=== PATIENT | male | born 1955 | race Caucasian/White ===

== ENCOUNTER → 2022-12-22 20:27 | Outpatient (CLI) | payer MEDICARE, OTHER, SELFPAY ==
--- NOTE | 2022-12-23 08:14 | PC.NURSE ---
PATIENT CAME FOR HST - WHEN RETURNED NO DATA TO UPLOAD - NO CHARGE TO PATIENT AND WILL TRY TO RESCHEDULE....
== END ==
PROVIDERS: PCP Family Medicine; Visit Provider Nurse Practitioner Family
DX: R40.0 Somnolence (principal)

== ENCOUNTER → 2023-04-10 13:54 | Outpatient (CLI) | payer MEDICARE, OTHER, SELFPAY ==
--- NOTE | 2023-04-10 13:59 | XR_ITS ---
FINAL REPORT CLINICAL HISTORY: knee pain FINDINGS: Four views of the left knee were obtained. There is no evidence of fracture or dislocation. The bony alignment is normal. There are mild degenerative changes. There is no evidence of joint effusion. No localized soft tissue abnormality is seen. There is no evidence of foreign body. IMPRESSION: No acute bony abnormality identified. Reviewed, Interpreted and Dictated by Chepe Velazquez III, MD Transcribed by Luz Hester Authenticated and [facility]
== END ==
PROVIDERS: PCP Family Medicine; Visit Provider Nurse Practitioner Family
DX: M25.562 Pain in left knee (principal)
CPT/HCPCS: 73560

== ENCOUNTER → 2023-04-28 15:29 | Outpatient (CLI) | payer MEDICARE, OTHER, SELFPAY ==
--- NOTE | 2023-04-28 15:32 | MR_ITS ---
PROCEDURE INFORMATION: Exam: MR Left Lower Extremity Joint Without Contrast, Knee Exam date and time: 04/28/2023 3:42 PM Age: 67 years old Clinical indication: Pain; Knee; Left; Additional info: Acute pain of left knee TECHNIQUE: Imaging protocol: Magnetic resonance imaging of the left lower extremity joint without contrast. Exam focused on the knee. COMPARISON: CR XR KNEE LT 2V 04/10/2023 2:01 PM FINDINGS: Bones/joints: Small patellofemoral joint effusion. A small Rae cyst is visualized. There is irregularity/thinning of the patellar cartilage at the medial facet with a tiny subchondral cyst. Degenerative spurring is identified within the medial compartment the knee. There is cortical irregularity and spurring at the weight-bearing surface of the medial femoral condyle, which is likely degenerative or contributed by prior trauma. Cartilage loss and fissures at the weight-bearing surface of the medial femoral condyle. Cystic change is identified involving the distal femur anteriorly. A few tiny osseous cysts are identified involving the proximal fibula. Minimal degenerative spurring of the patellofemoral joint. Medial meniscus: Complex tearing of the posterior horn and body of the medial meniscus. Abnormal signal intensity with meniscal tear involving the posterior root of the medial meniscus. Lateral meniscus: The anterior horn of the lateral meniscus is small in size, without a well-defined tear. Anterior cruciate ligament: Increased signal intensity is identified within the proximal ACL, consistent with partial tear. Posterior cruciate ligament: No visualized tear. Medial capsule and supporting structures: Edema surrounds the medial collateral ligament, consistent with the grade 1 MCL injury/sprain. A tiny focus of increased T2 signal intensity is seen proximally within or posterior to this ligament, and partial tear cannot be excluded. Lateral capsule and supporting structures: Unremarkable. No tear. Extensor mechanism of knee: Mild heterogeneous signal intensity/tendinosis of the patellar tendon. Mild tendinosis of the distal quadriceps tendon. Soft tissues: A small amount of fluid is identified adjacent to the popliteus muscle and tendon. Tendinosis is visualized of the popliteus tendon. Minimal soft tissue edema anteriorly. IMPRESSION: 1. Medial meniscal tears. 2. Partial ACL tear. 3. Grade 1 MCL injury/sprain. Partial tear cannot be excluded. 4. Small patellofemoral joint effusion. A small Rae cyst is visualized. 5. Degenerative changes. There is cortical irregularity and spurring at the weight-bearing surface of the medial femoral condyle. Cartilage loss and fissures at the weight-bearing surface of the medial femoral condyle. 6. Additional findings described above.
== END ==
PROVIDERS: PCP Family Medicine; Visit Provider Nurse Practitioner Family
DX: M25.562 Pain in left knee (principal)
CPT/HCPCS: 73721

== ENCOUNTER 2023-05-05 14:35 | Outpatient (RCR) | payer MEDICARE, OTHER, SELFPAY | END 2023-05-05 16:00 | disposition home or self-care (01) | LOC: PT 14:35 | PROVIDERS: Visit Provider Orthopaedic Surgery | DX: M25.562 Pain in left knee (principal) ==

== ENCOUNTER 2023-05-15 07:56 | Outpatient (RCR) | payer MEDICARE, OTHER, SELFPAY ==
--- NOTE | 2023-05-15 11:46 | HMH.PTOPEV ---
PT Outpatient Evaluation Rehab PT Outpatient Evaluation Start: 05/15/23 11:10 Freq: Status: Active Protocol: Document 05/15/23 11:10 IZA (Rec: 05/15/23 11:46 PHOYANNI [id number]) E-signed By Krishan Beyer, PT Outpatient Therapy Subjective History Subjective History This is the initial PT eval for Xavier Mooney, 67 yowm who presents with c/o L knee pain x ~ 5 wks. He reports, I just stepped backwards and felt it pop, it's been hurting ever since. MRI was performed ~ 2 wks ago which shows ACL partial tear, MCL sprain vs partial tear (grade 1), medial meniscus tears, and degenerative OA. He reports he has been frequently icing his knee, which helps. However , he continues to have significant pain and instability with standing activity. Chief Complaint Pain,Stiff Symptom Type Ache Symptoms Relieved By Ice Symptoms Aggravated By Standing,Physical Activity, Walking Prior Functional Limitations None Current Functional Limitations Housework,Standing,Walking, Stairs Symptom Description Constant but Variable Level of pain today (0-10) 7 Pain scale - at its best (0-10) 5 Pain scale - at its worst (0-10) 10 Hip/Knee Eval Gait Observation General Gait Pattern Observation Antalgic Gait Palpation Tenderness left Knee Palpation Finding Tenderness Knee Palpation Overall Comment MCL 2/4 MMT Hip Flexion Strength Grade 3+ Fair+ Hip Abduction Strength Grade 4 Good Hip Adduction Strength Grade 4 Good Hip Extension Strength Grade 4 Good Knee Extension Strength Grade 3+ Fair+ Knee Flexion Strength Grade 4 Good ROM Knee Extension Active Range of Motion ( -5 degrees) Knee Extension Passive Range of Motion ( 0 degrees) Knee Flexion Active Range of Motion ( 5-70 degrees) Knee Flexion Passive Range of Motion ( 0-85 degrees) Knee ROM Limitations Pain Special Tests Gutierrez 90/90 Test (PCL) Negative Left,Negative Right Knee Anterior Hever Test Negative Right,Positive Left Knee Posterior Sag ([place]) Test Negative Left,Negative Right Knee Valgus Stress Test Negative Right,Positiv
== END 2023-05-15 07:59 | disposition home or self-care (01) ==
LOC: PT 07:56
PROVIDERS: PCP Family Medicine; Visit Provider Orthopaedic Surgery
DX: M25.562 Pain in left knee (principal)
CPT/HCPCS: 97014; 97016; 97110; 97163; G0283

== ENCOUNTER → 2023-05-29 11:37 | Outpatient (CLI) | payer MEDICARE, OTHER, SELFPAY ==
[2023-05-29 11:56] LABS: MANUAL DIFFERENTIAL MANUAL DIFFERENTIAL (MANUAL DIFF)
--- NOTE | 2023-05-29 12:24 | XR_ITS ---
FINAL REPORT CLINICAL HISTORY: HTN FINDINGS: 2 views of the chest were obtained . The heart is normal in size. The mediastinum is within normal limits. The lungs are clear. There is no pneumothorax. Osseous structures are unremarkable. IMPRESSION: No acute cardiopulmonary process. Reviewed, Interpreted and Dictated by Rik Layton MD Transcribed by Lzu Hester Authenticated and [facility]
[2023-05-29 12:30] LABS: Basophils # 0.1 K/mm3 (0-0.2); Basophils % 0.5 % (0.1-2.0); Eosinophils # 0.6 K/mm3 (0.0-0.4); Eosinophils % 6.4 % (0.1-12.0); Hemoglobin 14.8 g/dL (14.1-18.0); Lymphocytes # 2.9 K/mm3 (0.7-4.5); Lymphocytes % 29.8 % (10-50); Mean Corpuscular HGB Conc 31.5 g/dL (31.8-35.4); Mean Corpuscular Volume 92.2 fl (80-94); Mean Platelet Volume 8.3 fl (7.4-10.4); Monocytes # 0.5 K/mm3 (0.1-1.0); Monocytes % 5.4 % (1.7-9.3); Neutrophils # 5.7 K/mm3 (1.8-7.8); Neutrophils % 57.9 % (37.0-80.0); Platelet Count 226 K/mm3 (142-424); Red Cell Distribution Width 13.4 % (11.5-17.5); White Blood Count 9.8 K/mm3 (4.8-10.8)
[2023-05-29 12:51] LABS: Hemoglobin A1C 5.9 % (4.0-6.0)
--- NOTE | 2023-05-29 12:58 | ECG_ITS ---
APPROVED REPORT Exam: Resting ECG HR:69 bpm ECG Measurements Heart Rate 69 AXES PA 158 P 50 QRSd 96 QRS 30 QT 368 T 42 QTc 387 Conclusion SINUS RHYTHM NORMAL ECG UNCONFIRMED REPORT Electronically signed by : Mahin Mcleod MD 05/30/2023 17:22:03
[2023-05-29 12:59] LABS: Alanine Aminotransferase 23 U/L (12-78); Albumin Level 4.1 g/dl (3.5-5.0); Albumin/Globulin Ratio 1.3 (1.1-1.8); Alkaline Phosphatase 45 U/L (38-126); Anion Gap 16.2 mEq/L (5-15); Aspartate Amino Transferase 23 U/L (17-59); Bilirubin,Total 0.6 mg/dl (0.2-1.3); Blood Urea Nitrogen 17 mg/dl (9-20); Calcium 9.6 mg/dl (8.4-10.2); Carbon Dioxide 25 mmol/L (22.0-30.0); Chloride 103 mmol/L (98-107); Estimated Glomerular Filt Rate 67 ml/min (>60); GFR (African American) 81 ML/MIN (>60); Globulin 3.2 g/dL (1.3-3.2); Glucose 131 mg/dl (74-100); Potassium 4.2 mmoL/L (3.5-5.1); Sodium 140 mmol/L (136-145); Total Protein,Serum 7.3 g/dl (6.3-8.2)
[2023-05-29 13:20] LABS: Eosinophils % 2 % (0-3); Lymphocytes % 33 % (10-50); Monocytes % 3 % (2-9); Neutrophils % 62 % (42-76); Total Cells Counted 100
[2023-05-29 13:21] LABS: Platelet Estimate Normal; RBC Morphology Normal
== END ==
PROVIDERS: PCP Nurse Practitioner Family; Visit Provider Orthopaedic Surgery
DX: E11.9 Type 2 diabetes mellitus without complications (principal); S83.232A Complex tear of medial meniscus, current injury, left knee, initial encounter; Z01.818 Encounter for other preprocedural examination
CPT/HCPCS: 36415; 71046; 80053; 83036; 85007; 85014; 85018; 85048; 85049; 93005

== ENCOUNTER 2023-06-01 07:41 | Day surgery (SDC) | payer MEDICARE, OTHER, SELFPAY ==
[2023-05-30 11:19] VITALS: BMI 32.5
[2023-06-01] VITALS (9 sets, daily range): BP systolic 126–155; BP diastolic 74–98; PULSE 71–97; RESP 11–17; TEMP 36.1–36.5; O2SAT 94–99
--- NOTE | 2023-06-01 08:00 | EXP.ANES.CKL ---
[facility] Disclaimer: The information contained in this section may have been updated after the patient was seen, as this information can be updated by other users. Medical History History of amputation of toe Hypertension Surgical History History of ankle surgery History of cardiac cath History of colonoscopy with polypectomy History of knee surgery Family History Other No significant family history Social History Smoking Status: Former smoker second hand exposure: No alcohol intake: never substance use type: denies use current occupational status: employed Travel in the last 8 weeks: None household members: spouse housing: house [facility] Anesthesia Checklist Patient Identification Patient Identification: Arm Band and Verbal (Name & ) Structural Data Admitted From: Home Planned Operative Procedure/s: Knee Scope Left Consent for Planned Operative Procedure(s) Verified: Yes Verified Documents: Surgical Consent NPO Status Verified Time NPO: 00:00 Additional verifications Patient : No Anesthesia Reactions: No Hx Blood Transfusions: No Airway Assessment Mallampati Score:: Class I C-Spine Mobility Assessed: Yes TMJ Mobility Assessed: Yes Dentition: Good Dentition Neurological Assessment Level of Consciousness: Awake and Alert Hx Seizures: No Anesthesia Plan Anesthesia Risk discussed: Yes ASA Class: II Anesthesia Type: General
--- NOTE | 2023-06-01 10:18 | EXP.OP.NOTE ---
Date of procedure: 06/01/23 Pre-op Diagnosis:: Left knee medial meniscus tear Post-op Diagnosis:: Left knee medial meniscus tear Procedure performed:: Left knee arthroscopy with partial medial meniscectomy Surgeon:: Joao Valera MD BUSH REGENERATOR:: Devendra Sarabia Anesthesia: GETA and local Estimated blood loss (mL): 5 Clinical Note:: Xavier is a pleasant 67-year-old male dealing with left knee pain after twisting his knee a couple of months ago. [place] a pop with immediate pain. Left knee MRI 04/20 revealed complex tear posterior horn and body the medial meniscus. Mild chondromalacia. History of a left knee scope in 2017. No relief with cortisone injections in the past. History and exam consistent with acute symptomatic medial meniscus tear as seen on MRI. We discussed all the risks, benefits and alternatives to surgery to include left knee arthroscopy with partial medial meniscectomy and he agrees to proceed. Operative findings:: Left knee complex tear posterior horn medial meniscus with horizontal cleavage component and displaced flap into the notch. Mild chondromalacia medial and patellofemoral compartments. Operative note:: The patient was seen in the preoperative holding area. The left knee was marked to confirm the correct operative site. He was seen by anesthesia. He received Ancef 2 g IV prophylactic antibiotics within 1 hour incision time. He was brought back to the operating room. General anesthesia induced without difficulty. Left lower extremity prepped and draped in usual sterile fashion. Timeout performed to confirm left knee arthroscopy on patient Xavier Mooney. An anterolateral viewing portal was made with an 11 blade scalpel. Arthroscope was introduced into the knee joint. Anteromedial portal was then localized with a spinal needle. This incision made with 11 blade as well and dilated with the trocar. Diagnostic arthroscopy commenced. He was seen to have some grade II-III chondromalacia central aspect the trochlea and patella. This was treated with a chondroplasty with a 3.5 mm shaver resecting the unstable flaps back to a smooth stable border. Evaluation of the medial compartment revealed displaced flap tear of the posterior horn of the medial meniscus into the notch. Also horizontal cleavage tear of the posterior horn and body the medial meniscus. This was treated with a partial medial meniscectomy using a 3.5 shaver to resect the unstable flap and the inferior leaflet of the horizontal cleavage tear. We resected approximately the inner third to half of the posterior horn of the medial meniscus with a smooth transition to intact body the medial meniscus. There was some diffuse grade II-III chondromalacia of the medial compartment with no full-thickness cartilage loss. Cruciate ligaments were seen to be intact. He was placed in the [id number] position. Evaluation of the lateral compartment revealed lateral meniscus was intact and minimal chondromalacia. At this time arthroscopy intstruments removed from the joint. Arthroscopy fluid suctioned and drained from the joint. Portals were closed with 4 Monocryl subcuticular sutures. We injected 20 cc of half percent Naropin from the superolateral approach. Sterile dressing was applied with Steri-Strips, 4 x 4's, ABD, soft roll and Harrison bandage. Anesthesia reversed without difficulty. Transferred to recovery in stable condition. All sponge and needle counts correct x2. Postoperative plan: He will be discharged home for recovery with crutches and ice wrap. Okay to weight-bear as tolerated with crutch assist as needed. Ice and elevation over the next few days. Prescribed oxycodone take as needed for pain and aspirin for DVT prophylaxis. We will see him back in the office in 2 weeks for his first postoperative check. Tourniquet time (min): 0 Condition: stable Disposition: PACU Specimens:: None Complications:: None
--- NOTE | 2023-06-01 10:24 | EXP.ANES.I ---
[facility] Anesthesia Record Part I Anesthesia Record I Intake, IV Amount: 900 Hydration: Adequate Estimated blood loss (mL): 5 Urine output (mL): 0 Blood Pressure: 126/74 SaO2: 94 Pulse Rate: 85 Airway Patency: Patent Respiratory Rate: 11 Temperature: 97.4 F Patient is:: Drowsy and Oral/Nasal airway Stable to PACU at:: 10:26
--- NOTE | 2023-06-02 08:36 | EXP.ANES.II ---
[facility] Anesthesia Record Part II Anesthesia Record Part II Discharge Time: 10:56 Destination: Surgical Day Care (OP Surgery) PACU nurse assessment reviewed?: Yes Patient Condition:: Good Anesthesia Complications:: None Swallowing reflex intact?: Yes Airway Patency: Patent Cyanosis?: No Blood Pressure: 153/90 SaO2: 99 Respiratory Rate: 16 Pulse Rate: 86 Temperature: 97.1 F Mental Status: Alert & Oriented Pain level:: 0 Nausea and/or vomitting:: None Intake, IV Amount: 0 Hydration: Adequate
[2023-06-02 08:37] VITALS: BP 153/90; PULSE 86; RESP 16; TEMP 36.2; O2SAT 99
== END 2023-06-01 11:30 | disposition home or self-care (01) ==
PROVIDERS: PCP Family Medicine; Visit Provider Orthopaedic Surgery
PROC: 0SBD4ZZ Excision of Left Knee Joint, Percutaneous Endoscopic Approach (ICD-10-PCS; CPT 29870; principal; 2023-06-01 09:15)
DX: S83.242A Other tear of medial meniscus, current injury, left knee, initial encounter (principal); X58.XXXA Exposure to other specified factors, initial encounter; M17.12 Unilateral primary osteoarthritis, left knee
CPT/HCPCS: 29881; 96374; J0131

== ENCOUNTER 2024-01-19 09:26 | Outpatient (CLI) | payer MEDICARE, OTHER, SELFPAY ==
--- NOTE | 2024-01-19 09:32 | XR_ITS ---
FINAL REPORT CLINICAL HISTORY: Left Knee Pain fall November 2023 COMPARISON: None FINDINGS: LEFT KNEE 3 views of the left knee were obtained. There is no acute fracture or dislocation. There is mild narrowing of the medial compartment joint space. There is no joint effusion. Soft tissues are unremarkable. IMPRESSION: Mild degenerative change without acute bony abnormality. Reviewed, Interpreted and Dictated by Rik Layton MD Transcribed by Aruna Antonio Authenticated and [facility]
== END 2024-01-19 23:59 ==
LOC: RAD 09:28
PROVIDERS: PCP Family Medicine; Visit Provider Orthopaedic Surgery
DX: M25.562 Pain in left knee (principal)
CPT/HCPCS: 73562

== ENCOUNTER 2024-02-17 07:28 | Emergency (ER) | payer MEDICARE, OTHER, SELFPAY ==
[2024-02-17] VITALS (7 sets, daily range): BP systolic 132–174; BP diastolic 80–106; PULSE 54–86; RESP 16; TEMP 36.7; O2SAT 95–100; BMI 32.3
--- NOTE | 2024-02-17 07:47 | ECG_ITS ---
APPROVED REPORT Exam: Resting ECG HR:72 bpm ECG Measurements Heart Rate 72 AXES IA 173 P 53 QRSd 91 QRS 4 QT 366 T 40 QTc 390 Conclusion SINUS RHYTHM Electronically signed by : NERIS OBREGON, 02/17/2024 15:37:05
[2024-02-17] MEDS: BELLADONNA ALKALOIDS 60 ML ML PO (07:59)
[2024-02-17] MEDS: MORPHINE 4MG/ML SYRINGE 4 MG IV (08:00)
[2024-02-17] MEDS: ONDANSETRON 4MG/2ML VIAL 4 MG IV (08:00)
[2024-02-17] MEDS: FAMOTIDINE 20MG/2ML VIAL 20 MG IV (08:00)
[2024-02-17] MEDS: LACTATED RINGERS 1000ML 1,000 ML 999 ML IV (08:00)
[2024-02-17] MEDS: KETOROLAC 30MG/ML VIAL 15 MG IV (08:00)
[2024-02-17 08:05] LABS: Microscopic, Urine URINE MICROSCOPIC (MICROSCOPIC)
--- NOTE | 2024-02-17 08:06 | ED_ITS ---
Discharge Plan Disposition Patient Disposition: Home, Self-Care Chief Complaint: Abdominal Pain Prescriptions Prescriptions: No Action epinephrine 0.3 mg/0.3 mL auto-injector 0.3 ml IM ONCE Patient Comments: INJECT THE contents of 1 auto-injector INTRAMUSCULARLY ONCE NEEDED FOR anaphylaxis trazodone 50 mg tablet 50 mg PO HS PRN Patient Comments: TAKE ONE TABLET BY MOUTH ONCE DAILY AT BEDTIME NEEDED dorzolamide-timolol 22.3-6.8 mg/mL drops 1 drp Eye-Both BID Patient Comments: INSTILL ONE DROP into affected eye(s) TWICE DAILY irbesartan 75 mg tablet 75 mg PO DAILY Qty: 30 2RF epinephrine [EpiPen 2-Santos] 0.3 mg/0.3 mL auto-injector 0.3 mg IM Q5-15M PRN (Reason: anaphylaxis) Qty: 2 2RF Rx Instructions: do not exceed 3 doses per episode prazosin 1 mg capsule 2 mg PO HS 30 Days Qty: 60 0RF Referrals Follow up/Referrals: Laura Richardson APRN [Primary Care Provider] - See instructions Activity Restrictions/Add. Instructions Additional Instructions/Restrictions: Call your family doctor to establish care for this visit to the emergency department and schedule follow-up within 48 hours to ensure improvement. If you have any worsening of your condition or any other concerning signs or symptoms, return to the emergency department or your primary care doctor for further evaluation. Call Dr. Baptiste's office in order to have evaluation for cholecystectomy and hernia repair. Clinical Impressions Clinical Impression: Symptomatic cholelithiasis, Hernia, umbilical Instructions Patient Instructions: DI for Acute Abdominal Pain Discharge ED Provider: Adrián Quiroz General Adult HPI General Chief complaint: Abdominal Pain Stated complaint: severe abd pain Time Seen by Provider: 02/17/24 07:32 Mode of Arrival: Ambulatory Source of Information: Patient Limitations: No Limitations Description of Symptoms (Recalled from ER Triage Doc. by RN): Patient reports severe right to mid abdomen pain that started approx 9 pm last night. States he did have a couple episodes of emesis through the night. Denies any diarrhea. Reports having this problem once before and when he was checked out everything came back fine. History of Present Illness HPI narrative: 68-year-old male history of hypertension presenting with severe abdominal pain. Patient states that it started last night, 02/15 around 9 PM. Was not doing anything in particular, sitting on the couch. No vomiting, diarrhea, constipation, blood in the stool, but he is significantly tender and nauseated. Tenderness is constant, periumbilical/epigastric, does not radiate. Tried to take Tylenol, this did not help, has not noticed anything that makes it better or worse in particular. States that he noticed this morning, 02/16, he had bruising on his right flank, atraumatic, bruising is nontender. Not taking anticoagulation. No history of abdominal surgeries Please note that above description of symptoms, in this electronic medical record under categorization of recalled from ER triage doctor by RN are reflective of an initial nursing assessment, however, is not reflective of my full history and physical exam that was personally taken and clarified. Consequentially, this preceding description of symptoms, which may include the patient's categorized chief complaint in the EMR, do not reflect my personal clinical impression, and the ultimate description of history of present illness and patient stated complaints should be deferred to this section of the note. Unless stated otherwise or congruent with this section of the note, additional signs, symptoms, or incongruence should be interpreted as inaccurate with my clinical impression. Related Data Home Medications Medication Instructions Recorded Confirmed epinephrine 0.3 mg/0.3 mL 0.3 ml IM ONCE anyphalaxis 05/05/23 02/16/24 injection, auto-injector dorzolamide 22.3 mg-timolol 6.8 1 drp Eye-Both BID 01/30/24 02/16/24 mg/mL eye drops trazodone 50 mg tablet 50 mg PO HS PRN 01/30/24 02/16/24 Previous Rx's Medication Instructions Recorded epinephrine 0.3 mg/0.3 mL 0.3 mg (0.3 mL) IM Q5-15M PRN 01/30/24 injection, auto-injector (EpiPen anaphylaxis #2 ea 2-Santos) irbesartan 75 mg tablet 75 mg PO DAILY #30 tabs 01/30/24 prazosin 1 mg capsule 2 mg (2 x 1 mg) PO HS 30 days #60 02/01/24 caps Allergies Allergy/AdvReac Type Severity Reaction Status Date / Time insect Allergy Severe Anaphylaxis Uncoded 02/16/24 13:44 [facility] Disclaimer: The information contained in this section may have been updated after the patient was seen, as this information can be updated by other users. Medical History PTSD (post-traumatic stress disorder) Cataract Glaucoma Hypertension Surgical History History of colonoscopy with polypectomy History of amputation of toe History of ankle surgery History of knee surgery History of cardiac cath Family History Father Cancer Other No significant family history Social History Smoking Status: Unknown if ever smoked second hand exposure: No alcohol intake: never substance use type: denies use current occupational status: employed Travel in the last 8 weeks: None household members: spouse housing: house ROS Obtained: Yes All systems reviewed & no additional complaints except as documented Physical Exam General General appearance: alert and in no apparent distress Head Head exam: atraumatic and normocephalic Eye Eye exam: Present normal appearance, PERRL and EOMI ENT ENT exam: Present mucous membranes moist Neck Neck exam: Present normal inspection, full ROM and trachea midline Respiratory Respiratory exam: Absent respiratory distress, wheezes, stridor, accessory muscle use or prolonged expiratory phase Cardiovascular Cardiovascular exam: Present normal rhythm Abdominal Exam Abdominal exam: Present soft, tenderness, hernia (umbilical, reducible) and other (right lateral abdomen/flank bruising concerning for Bray sign); Absent distention, guarding, rebound or rigidity Abdominal tenderness: Present diffuse and moderate Extremities Exam Extremities exam: Absent edema Neurological Exam Neurological exam: Present alert, oriented X3, CN II-XII intact and normal gait; Absent motor sensory deficit Skin Skin exam: Present warm and dry; Absent diaphoresis or erythema Medical Decision Making Medical Records Medical records reviewed: Yes I reviewed the patient's medical records. Ronen Inquiry Pt receiving controlled substance: No Ronen was queried for this patient: No Vital Signs: 02/17/24 07:29 02/17/24 08:30 02/17/24 08:30 Temperature 98.0 F Temperature Source Oral Pulse Rate 60 63 Pulse Rate [Radial] 86 Respiratory Rate 16 16 Blood Pressure 143/92 H Blood Pressure [Right Arm] 174/106 H Blood Pressure Mean Blood Pressure Mean [Right Arm] 128 Blood Pressure Source Manual Cuff/ Auscultation Blood Pressure Source [Right Arm] Automatic Cuff Blood Pressure Position Sitting Blood Pressure Position [Right Arm] Sitting 02 Sat by Pulse Oximetry 100 96 98 Oxygen Delivery Method Room Air Room Air 02/17/24 08:30 02/17/24 09:00 02/17/24 09:15 Temperature Temperature Source Pulse Rate 56 L Pulse Rate [Radial] Respiratory Rate Blood Pressure 148/94 H 150/80 H Blood Pressure [Right Arm] Blood Pressure Mean 113 103 Blood Pressure Mean [Right Arm] Blood Pressure Source Blood Pressure Source [Right Arm] Blood Pressure Position Blood Pressure Position [Right Arm] 02 Sat by Pulse Oximetry 95 Oxygen Delivery Method 02/17/24 09:30 Temperature Temperature Source Pulse Rate 54 L Pulse Rate [Radial] Respiratory Rate Blood Pressure Blood Pressure [Right Arm] Blood Pressure Mean Blood Pressure Mean [Right Arm] Blood Pressure Source Blood Pressure Source [Right Arm] Blood Pressure Position Blood Pressure Position [Right Arm] 02 Sat by Pulse Oximetry 97 Oxygen Delivery Method Lab Data Lab Results 02/17/24 07:33: Urine Color Dark yellow, Urine Appearance Clear, Urine pH 5.5, Ur Specific [place] >= 1.030, Urine Protein Negative, Urine Glucose (UA) Negative, Urine Ketones Trace, Urine Blood Negative, Urine Nitrate Negative, U rine Bilirubin 1+ A, Urine Urobilinogen 0.2, Ur Leukocyte Esterase Negative, Urine RBC None, Urine WBC Occasional, Ur Squamous Epith Cells 3-5, Calcium Oxalate Crystal Trace, Urine Bacteria Trace, Urine Mucus 1+ 02/17/24 07:38: WBC 9.3, RBC 5.19, Hgb 15.3, Hct 49.2, MCV 94.7 H, MCH 29.5, M CHC 31.2 L, RDW 13.5, Plt Count 262, MPV 8.1, Neut % (Auto) 46.2, Lymph % (Auto) 43.4, [place] % (Auto) 7.0, Eos % (Auto) 2.3, Baso % (Auto) 1.0, Neut # (Auto) 4.3, Lymph # (Auto) 4.0, [place] # (Auto) 0.7, Eos # (Auto) 0.2, Baso # (Auto) 0.1, Sodium 144, Potassium 4.2, Chloride 105, Carbon Dioxide 30, Anion Gap 13.2, BUN 14, Creatinine 1.10, Estimated Creat Clear 104, Estimated GFR 67, Est GFR ( Amer) 81, Glucose 117 H, Lactate 0.9, Calcium 10.1, Total Bilirubin 0.5, AST 37, ALT 34, Alkaline Phosphatase 62, Troponin I < 0.01, Total Protein 7.9, Albumin 4.3, Globulin 3.6 H, Albumin/Globulin Ratio 1.2, Lipase 53 02/17/24 07:38 02/17/24 07:38 Orders (Tests/Meds): ED MEDICATIONS Generic Name Dose Route Start Last Admin Trade Name Freq PRN Reason Stop Dose Admin Sodium Chloride 8 ml 02/17/24 07:33 Sodium Chloride 0.9% 10ml Vial IV 03/18/24 07:32 NEEDED PRN dilute pepcid Discontinued Medications Generic Name Dose Route Start Last Admin Trade Name Freq PRN Reason Stop Dose Admin Belladonna Alkaloids 60 ml 02/17/24 07:33 02/17/24 07:59 Belladonna Alkaloids 60 Ml Ml PO 02/17/24 07:34 60 ml ONCE ONE Administration Famotidine 20 mg 02/17/24 07:33 02/17/24 08:00 Famotidine 20mg/2ml Vial IV 02/17/24 07:34 20 mg ONCE ONE Administration Lactated Ringer's 1,000 mls @ 999 mls/hr 02/17/24 07:33 02/17/24 08:00 Lactated Ringer's 1000 Ml Bag IV 02/17/24 08:33 999 mls/hr .Q1H1M ONE Administration Iopamidol 100 ml 02/17/24 08:51 02/17/24 08:53 Iopamidol-370 (76%);100ml Bottle IV 02/17/24 08:52 100 ml ONCE ONE Administration Ketorolac Tromethamine 15 mg 02/17/24 07:33 02/17/24 08:00 Ketorolac 30mg/Ml Vial IV 02/17/24 07:34 15 mg ONCE ONE Administration Morphine Sulfate 4 mg 02/17/24 07:44 02/17/24 08:00 Morphine 4mg/Ml Syringe IV 02/17/24 07:45 4 mg ONCE ONE Administration Ondansetron HCl 4 mg 02/17/24 07:33 02/17/24 08:00 Ondansetron 4mg/2ml Vial IV 02/17/24 07:34 4 mg ONCE ONE Administration Sodium Chloride 10 ml 02/17/24 08:51 02/17/24 08:52 Sodium Chloride 0.9% 10ml Syr (Rad Only) IV 02/17/24 08:52 10 ml ONCE ONE Administration Sodium Chloride 50 ml 02/17/24 08:51 02/17/24 08:52 0.9 % Sodium Chloride 50 Ml Vial IV 02/17/24 08:52 50 ml ONCE ONE Administration ORDERS Category Date Time Status CT angio abdomen pelvis Stat Cat Scan 02/17/24 08:15 Completed POCUS Point of Care (ER Only) Stat Exams 02/17/24 07:44 Ordered CBC w/Auto Diff [Complete Blood Count Auto Diff] Stat Lab 02/17/24 07:38 Completed CMP [Comprehensive Metabolic Panel] Stat Lab 02/17/24 07:38 Completed Lactic Acid Stat Lab 02/17/24 07:38 Completed Lipase Stat Lab 02/17/24 07:38 Completed Trop I [Troponin I] Stat Lab 02/17/24 07:38 Completed Troponin I Q3H Lab 02/17/24 12:15 Ordered Troponin I Q3H Lab 02/17/24 15:15 Ordered UA [Urinalysis and Microscopic] Stat Lab 02/17/24 07:33 Completed HEART Score History (anamnesis): Slightly suspicious ECG: Normal Age: >65 years Risk factors: 1-2 risk factors Troponin: </= normal limit HEART Score: 3 Medical Decision Narrative: 68-year-old male history of hypertension presenting with severe abdominal pain. Patient states that it started last night, 02/15 around 9 PM. Was not doing anything in particular, sitting on the couch. No vomiting, diarrhea, constipation, blood in the stool, but he is significantly tender and nauseated. Tenderness is constant, periumbilical/epigastric, does not radiate. Tried to take Tylenol, this did not help, has not noticed anything that makes it better or worse in particular. States that he noticed this morning, 02/16, he had bruising on his right flank, atraumatic, bruising is nontender. Not taking anticoagulation. No history of abdominal surgeries. History was obtained via conversation with patient and . On arrival, patient hemodynamically stable, alert, oriented x4, appropriate, GCS 15, moving all extremities spontaneously, pupils equal and reactive to light. Full physical exam performed and significant for intermittent retching. Patient has abdominal tenderness diffusely, but primarily epigastric/periumbilical. He does have reducible umbilical hernia that is soft, no overlying skin changes. He does have right flank/right lower abdominal tenderness concerning for Bray sign and pancreatitis. Differential includes PUD, gastritis, enteritis, gastroenteritis, pancreatitis, SBO, colitis, diverticulitis, nephrolithiasis, UTI, cholecystitis, choledocholithiasis, appendicitis, torsion, hepatitis, aortic pathology, mesenteric ischemia among others. Patient was given morphine, Toradol, Zofran, IV fluids for symptomatic management and correction of underlying abnormalities. Workup independently interpreted and significant for nonactionable CBC or chemistry. Bilirubin normal, lipase and lactate both normal. LFT normal as well. Troponin negative. CT angio abdomen and pelvis without obvious intra-abdominal abnormality. Pancreas appears normal, no obvious ischemia. Gallbladder distended, but no secondary signs of cholecystitis on exam. See radiology read for full review of final results. Independent interpretation of EKG shows sinus rhythm with occasional PVCs. No ST or T wave changes concerning for acute ischemia. FL, QRS, QT intervals within normal limits. [place] normal. Heart score 3 On reevaluation, patient stating he has no pain, well-appearing, able to tolerate p.o. intake. Given patient presentation, workup, history, this most likely represents symptomatic cholelithiasis. Because patient at baseline without signs or symptoms of clinical decompensation, deemed appropriate for discharge. Results were relayed to patient who voiced understanding and were agreeable to outpatient management and follow up. I discussed my clinical impression with patient and answered all questions. At this time, the evidence for any other entities in the differential is insufficient to warrant any further testing or ED observation. This was explained as well. Advisory was given that persistent or worsening symptoms require further evaluation. I confirmed the understanding of this discussion. Paralegal Legal Secretary disclaimer Much of this encounter note is an electronic utility locate technician spoken language to printed text. Electronic utility locate technician of the spoken language may permit errors. Although I have reviewed the note, some errors may still exist. Procedures Limited Ultrasound Indication:: Limited RUQ ultrasound Indication: Abdominal pain Identified structures: -Gallbladder -Gallbladder wall -Common bile duct -Liver Findings: Sonographic Delgado sign: Absent Gallstones: Present, numerous Sludge: Absent Pericholecystic fluid: Absent Maximal GB wall thickness (mm) (normal is </= 3mm): Normal Common bile duct width (mm) (normal is </= 6mm): Normal Gallbladder width (cm) (normal is < 4cm): Normal Gallbladder length (cm) (normal is < 10cm): Normal Impression: Cholelithiasis without secondary signs of cholecystitis Images were saved to permanent archive The study was technically adequate CPT 29227-08 This study was performed by me, and I personally interpreted all images/videos. Based on my clinical judgement, these images were adequate and did not necessitate further imaging. Critical Care Critical Care Time Critical Care Time: No
--- NOTE | 2024-02-17 08:15 | CT_ITS ---
PROCEDURE INFORMATION: Exam: CTA Abdomen and Pelvis With Contrast Exam date and time: 02/17/2024 8:44 AM Age: 68 years old Clinical indication: Abdominal pain; Generalized; Additional info: Severe abd pain, out of proportion to exam TECHNIQUE: Imaging protocol: Computed tomographic angiography of the abdomen and pelvis with contrast. Exam focused on the arteries. 3D rendering (Not supervised by radiologist): MIP and/or 3D reconstructed images were created by the technologist. Radiation optimization: All CT scans at this facility use at least one of these dose optimization techniques: automated exposure control; mA and/or kV adjustment per patient size (includes targeted exams where dose is matched to clinical indication); or iterative reconstruction. Contrast material: ISOVUE; Contrast volume: 100 ml; Contrast route: INTRAVENOUS (IV); COMPARISON: ABDPELW CT abdomen pelvis w con 03/24/2019 3:32 AM FINDINGS: Aorta: No aortic aneurysm. No aortic dissection. Celiac trunk and mesenteric arteries: No occlusion or significant stenosis. Renal arteries: No occlusion or significant stenosis. Right iliac arteries: No occlusion or significant stenosis. Left iliac arteries: No occlusion or significant stenosis. Liver: 11 mm cystic structure in the anterior aspect of the liver . No follow-up imaging recommended . Subcentimeter low attenuation area in the liver is too small for characterization. Gallbladder and bile ducts: Unremarkable. No calcified stones. No ductal dilation. Pancreas: Unremarkable. No mass. No ductal dilation. Spleen: Unremarkable. No splenomegaly. Adrenal glands: Unremarkable. No mass. Kidneys and ureters: 16 mm simple cyst medial aspect of the left kidney. 2.3 cm simple cyst lower pole right kidney. No follow-up imaging recommended . Stomach and bowel: Unremarkable. No obstruction. No mucosal thickening. Appendix: Normal appendix Intraperitoneal space: Unremarkable. No free air. No significant fluid collection. Lymph nodes: Unremarkable. No enlarged lymph nodes. Urinary bladder: Unremarkable. No mass. Reproductive: Unremarkable as visualized. Bones/joints: No acute fracture. Soft tissues: Unremarkable. IMPRESSION: No acute process
[2024-02-17 08:19] LABS: Alanine Aminotransferase 34 U/L (12-78); Albumin Level 4.3 g/dl (3.5-5.0); Albumin/Globulin Ratio 1.2 (1.1-1.8); Alkaline Phosphatase 62 U/L (38-126); Anion Gap 13.2 mEq/L (5-15); Aspartate Amino Transferase 37 U/L (17-59); Bilirubin,Total 0.5 mg/dl (0.2-1.3); Blood Urea Nitrogen 14 mg/dl (9-20); Calcium 10.1 mg/dl (8.4-10.2); Carbon Dioxide 30 mmol/L (22.0-30.0); Chloride 105 mmol/L (98-107); Creatinine Clearance Estimated 104 mL/min (50-200); Estimated Glomerular Filt Rate 67 ml/min (>60); GFR (African American) 81 ML/MIN (>60); Globulin 3.6 g/dL (1.3-3.2); Glucose 117 mg/dl (74-100); Lipase 53 U/L (23-300); Potassium 4.2 mmoL/L (3.5-5.1); Sodium 144 mmol/L (136-145); Total Protein,Serum 7.9 g/dl (6.3-8.2)
[2024-02-17 08:20] LABS: Appearance,Urine CLEAR (Clear); Blood, Urine Negative (Negative); Glucose,Urine (UA) Negative (Negative); Ketones,Urine TRACE (Negative); Leukocyte Esterase,Urine Negative (Negative); Nitrate,Urine Negative (Negative); PH,Urine 5.5 (5.0-8.5); Protein,Urine Negative (Negative); Specific Gravity, Urine >= 1.030 (1.005-1.030); Urobilinogen,Urine 0.2 EU/dl (0.2)
[2024-02-17 08:21] LABS: Lactic Acid 0.9 mmol/L (0.7-2.1)
[2024-02-17 08:27] LABS: Basophils # 0.1 K/mm3 (0-0.2); Eosinophils # 0.2 K/mm3 (0.0-0.4); Eosinophils % 2.3 % (0.1-12.0); Hematocrit 49.2 % (42.0-52.0); Hemoglobin 15.3 g/dL (14.1-18.0); Lymphocytes % 43.4 % (10-50); Mean Corpuscular HGB Conc 31.2 g/dL (31.8-35.4); Mean Corpuscular Hemoglobin 29.5 pg (27.0-31.2); Mean Corpuscular Volume 94.7 fl (80-94); Mean Platelet Volume 8.1 fl (7.4-10.4); Monocytes # 0.7 K/mm3 (0.1-1.0); Neutrophils # 4.3 K/mm3 (1.8-7.8); Neutrophils % 46.2 % (37.0-80.0); Platelet Count 262 K/mm3 (142-424); Red Blood Count 5.19 M/mm3 (4.60-6.20); Red Cell Distribution Width 13.5 % (11.5-17.5); White Blood Count 9.3 K/mm3 (4.8-10.8)
[2024-02-17 08:28] LABS: Bilirubin,Urine 1+ (Negative); Color,Urine Dark Yellow (Yellow)
[2024-02-17] MEDS: SODIUM CHLORIDE 0.9% 10ML SYR (RAD ONLY) 10 ML IV (08:52)
[2024-02-17] MEDS: 0.9 % SODIUM CHLORIDE 50 ML VIAL IV (08:52)
[2024-02-17] MEDS: IOPAMIDOL-370 (76%);100ML BOTTLE 100 ML IV (08:53)
[2024-02-17 09:06] LABS: Bacteria,Urine Trace /lpf; Calcium Oxalate Crystals,Urine Trace /lpf; Mucus,Urine 1+ /lpf; WBC,Urine Occasional #/hpf (0-3)
--- NOTE | 2024-02-17 09:12 | PC.NURSE ---
Pt resting. No needs voiced at this time. Call light within reach.
[2024-02-17 09:35] LABS: Troponin I < 0.01 ng/ml (0.00-0.034)
== END 2024-02-17 10:36 | disposition home or self-care (01) ==
PROVIDERS: Emergency Provider Emergency Medicine; PCP Nurse Practitioner Family
DX: R10.13 Epigastric pain (principal); R10.33 Periumbilical pain; K42.9 Umbilical hernia without obstruction or gangrene; K80.20 Calculus of gallbladder without cholecystitis without obstruction; I10 Essential (primary) hypertension
CPT/HCPCS: 74174; 80053; 81001; 83605; 83690; 84484; 85025; 93005; 96361; 96374; 96375; 99285; J2405; Q9967

== ENCOUNTER 2024-02-28 11:05 | Outpatient (CLI) | payer MEDICARE, OTHER, SELFPAY ==
[2024-02-28 12:34] LABS: Alanine Aminotransferase 23 U/L (12-78); Albumin Level 3.9 g/dl (3.5-5.0); Alkaline Phosphatase 47 U/L (38-126); Amylase 41 U/L (30-110); Aspartate Amino Transferase 25 U/L (17-59); Bilirubin,Direct 0.1 mg/dl (0.0-0.4); Bilirubin,Indirect 0.4 mg/dL (0.0-0.9); Bilirubin,Total 0.5 mg/dl (0.2-1.3); Bilirubin,Unconjugated 0.4 mg/dL (0.0-1.1); Lipase 66 U/L (23-300); Total Protein,Serum 6.9 g/dl (6.3-8.2)
== END 2024-02-28 23:59 | disposition home or self-care (01) ==
LOC: LAB 11:06
PROVIDERS: PCP Nurse Practitioner Family; Visit Provider Surgery
DX: R10.11 Right upper quadrant pain (principal)
CPT/HCPCS: 36415; 80076; 82150; 83690

== ENCOUNTER 2024-03-01 14:17 | Outpatient (CLI) | payer MEDICARE, OTHER, SELFPAY ==
--- NOTE | 2024-03-01 14:18 | MR_ITS ---
FINAL REPORT TECHNIQUE: Multiplanar MR without contrast CLINICAL HISTORY: Lt Knee Pain FINDINGS: Articular cartilage: Moderate thinning within the medial compartment. Marrow signal: Marrow edema in the medial tibial plateau. Joint fluid: Small effusion. Menisci: Macerated, extensive tear at the body and posterior horn of the medial meniscus. Lateral meniscus is intact. Ligaments: Collateral and cruciate ligaments intact IMPRESSION: Significant degenerative changes in the medial compartment associated with a macerated tear involving much of the medial meniscus. Reviewed, Interpreted and Dictated by Velasquez Causey MD Transcribed by Krista Jalloh Authenticated and [facility]
== END 2024-03-01 23:59 | disposition home or self-care (01) ==
LOC: RAD 14:18
PROVIDERS: PCP Nurse Practitioner Family; Visit Provider Orthopaedic Surgery
DX: M25.562 Pain in left knee (principal); S83.232A Complex tear of medial meniscus, current injury, left knee, initial encounter
CPT/HCPCS: 73721

== ENCOUNTER 2024-03-04 08:19 | Outpatient (CLI) | payer MEDICARE, OTHER, SELFPAY ==
--- NOTE | 2024-03-04 08:19 | US_ITS ---
FINAL REPORT CLINICAL HISTORY: RUQ pain COMPARISON: None FINDINGS: Sonographic images of the right upper quadrant were obtained. The pancreas is obscured.The liver has an unremarkable appearance. Gallstones are noted in the gallbladder. There is no evidence of biliary ductal dilatation.The common duct measures 4mm. Limited images of the right kidney are unremarkable. IMPRESSION: Gallstones. Reviewed, Interpreted and Dictated by Chepe Velazquez III, MD Transcribed by Aruna Antonio Authenticated and [facility]
== END 2024-03-04 23:59 | disposition home or self-care (01) ==
LOC: RAD 08:19
PROVIDERS: PCP Nurse Practitioner Family; Visit Provider Surgery
DX: R10.11 Right upper quadrant pain (principal)
CPT/HCPCS: 76705

== ENCOUNTER 2024-03-28 08:26 | Day surgery (SDC) | payer MEDICARE, OTHER, SELFPAY ==
[2024-03-26 14:08] VITALS: BMI 32.3
[2024-03-28] VITALS (10 sets, daily range): BP systolic 122–180; BP diastolic 80–98; PULSE 62–90; RESP 12–18; TEMP 36.1–37.1; O2SAT 95–99; BMI 32.3
[2024-03-28] MEDS: LACTATED RINGERS 1000ML 1,000 ML 25 ML IV (08:43)
--- NOTE | 2024-03-28 09:27 | EXP.ANES.CKL ---
[facility] Disclaimer: The information contained in this section may have been updated after the patient was seen, as this information can be updated by other users. Medical History PTSD (post-traumatic stress disorder) Cataract Glaucoma Hypertension Surgical History History of colonoscopy with polypectomy History of amputation of toe History of ankle surgery History of knee surgery History of cardiac cath Family History Father Cancer Other No significant family history Social History (Updated 03/26/24 @ 14:07 by Aruna Aburto RN) Smoking Status: Never smoker second hand exposure: No alcohol intake: never substance use type: denies use current occupational status: employed Travel in the last 8 weeks: None household members: spouse housing: house [facility] Anesthesia Checklist Patient Identification Patient Identification: Arm Band, Family and Verbal (Name & ) Structural Data Admitted From: Home Planned Operative Procedure/s: Lap Tamanna; possible UHR Consent for Planned Operative Procedure(s) Verified: Yes Verified Documents: Surgical Consent and History and Physical NPO Status Verified Time NPO: 17:30 Chart Verification Results Verified: CBC, BMP, ECG and Chest Xray Additional verifications Patient : No Anesthesia Reactions: No Hx Blood Transfusions: No Blood Transfusion Reaction: No Cardiovascular Assessment Heart Sounds: S1 & S2 Pulse Rhythm: Irregular Peripheral Edema: No Airway Assessment Mallampati Score:: Class II C-Spine Mobility Assessed: Yes (FROM) TMJ Mobility Assessed: Yes Dentition: Good Dentition (Nothing loose per pt.) Neurological Assessment Level of Consciousness: Awake, Alert, Appropriate and Follows Commands Hx Seizures: No Numbness or tingling in extremities: No Anesthesia Plan Anesthesia Risk discussed: Yes Anesthesia Plan: Verified ASA Class: II Anesthesia Type: General
[2024-03-28] MEDS: CEFAZOLIN SODIUM 2 GM in 0.9 % SODIUM CHLORIDE 100 ML IV (10:00)
[2024-03-28] MEDS: LIDOCAINE 1% 20ML MDV 20 ML (10:22)
--- NOTE | 2024-03-28 11:27 | P.OP_ITS ---
Date of procedure: 03/28/24 Pre-op Diagnosis:: Chronic calculus cholecystitis Post-op Diagnosis:: Acute on chronic calculus cholecystitis Procedure performed:: Laparoscopic cholecystectomy Surgeon:: Onofre Baptiste MD Anesthesia: GRISELDA Estimated blood loss (mL): 25 Operative findings:: Known umbilical hernia with incarcerated preperitoneal fat (closed as part of trocar site closure) Distended gallbladder with serosal weeping Severe infundibular thickening Dome down approach utilized secondary to above findings Operative note:: After informed consent was obtained, the patient was taken to the operating room and placed in the supine position. General anesthesia was induced and the abdomen was prepped and draped in a sterile fashion. After infiltration with local anesthetic a a stab incision was made in the left upper quadrant. A V eress needle was placed in position. The abdomen was insufflated. Incarcerated preperitoneal fat at a known umbilical hernia was reduced. An infraumbilical incision was made. A 12mm optical trocar was placed in position through the small hernia. Under direct visualization, a 5 mm trocar was placed in the subxiphoid position and 2 additional 5 mm trocars were placed in the right upper quadrant. The gallbladder was elevated up and over the liver margin. The tissue around the cystic duct was carefully dissected. Gallbladder distention and serosal weeping noted. Severe infundibular thickening also noted. Secondary to these findings a dome down approach was chosen. A window was made bluntly behind the infundibulum. Harmonic chelsey were then utilized to dissect the gallbladder away from the liver margin. Endoloops (x 2) were placed at the infundibulum. The gallbladder was transected distal to the Endoloops and then placed in a retrieval bag. The gallbladder was removed through the infraumbilical trocar site. The right upper quadrant was thoroughly irrigated. No active bleeding or bile leak was noted. Fascia at the infraumbilical trocar site/hernia was reapproximated utilizing 0 Ethibond. The remaining trocars were removed. All wounds were irrigated and skin was closed with 4-0 Monocryl in a subcuticular fashion. Steri-Strips were applied. The patient's anesthetic agents were reversed and extubation was completed prior to transfer to recovery in stable condition. Condition: stable Disposition: PACU Specimens:: Gallbladder and contents Complications:: No immediate
--- NOTE | 2024-03-28 11:30 | P.PNANES_ITS ---
[facility] Anesthesia Record Part I Anesthesia Record I Intake, IV Amount: 1,000 Hydration: Adequate Estimated blood loss (mL): 15 Urine output (mL): 0 Blood Pressure: 122/85 SaO2: 95 Pulse Rate: 90 Airway Patency: Patent Respiratory Rate: 12 Temperature: 98.8 F Patient is:: Awake Stable to PACU at:: 11:30
--- NOTE | 2024-03-29 14:33 | P.PNANES_ITS ---
[facility] Anesthesia Record Part II Anesthesia Record Part II Discharge Time: 12:00 Destination: Surgical Day Care (OP Surgery) PACU nurse assessment reviewed?: Yes Patient Condition:: Good Anesthesia Complications:: None Swallowing reflex intact?: Yes Airway Patency: Patent Cyanosis?: No Blood Pressure: 169/89 SaO2: 97 Respiratory Rate: 17 Pulse Rate: 77 Temperature: 97 F Mental Status: Alert & Oriented Pain level:: 2 Nausea and/or vomitting:: None Intake, IV Amount: 0 Hydration: Adequate
[2024-03-29 14:34] VITALS: BP 169/89; PULSE 77; RESP 17; TEMP 36.1; O2SAT 97
== END 2024-03-28 12:35 | disposition home or self-care (01) ==
PROVIDERS: PCP Nurse Practitioner Family; Visit Provider Surgery
PROC: 0FT44ZZ Resection of Gallbladder, Percutaneous Endoscopic Approach (ICD-10-PCS; CPT 47562; principal; 2024-03-28 10:15)
DX: K80.12 Calculus of gallbladder with acute and chronic cholecystitis without obstruction (principal); R10.84 Generalized abdominal pain
CPT/HCPCS: 47562; 96374; J3490; J0131; J0690; J1100; J1885; J2250; J2405; J3010; J7120

== ENCOUNTER 2024-10-22 11:38 | Outpatient (CLI) | payer MEDICARE, OTHER, SELFPAY ==
--- NOTE | 2024-10-22 11:43 | XR_ITS ---
FINAL REPORT CLINICAL HISTORY: left knee pain COMPARISON: 01/19/2024 FINDINGS: Left knee Three views were obtained. There is no fracture or dislocation. Current images were obtained with weightbearing. There is moderate narrowing of the medial compartment. Narrowing is more evident than previous. No soft tissue abnormality is identified. IMPRESSION: Degenerative changes as above. Reviewed, Interpreted and Dictated by Rik Layton MD Transcribed by Aniya Marin Authenticated and . [facility]
--- NOTE | 2024-10-22 11:43 | XR_ITS ---
FINAL REPORT CLINICAL HISTORY: right knee pain FINDINGS: Right knee Three views were obtained. There is no fracture or dislocation. Current images were obtained with weightbearing. There is advanced medial compartment joint space narrowing and subchondral sclerosis. There is an osteochondral lesion along the articular surface of the medial femoral condyle measuring 8 mm. There are small osteophytes along the medial joint margin. No soft tissue abnormality is identified. IMPRESSION: Degenerative changes as above. Reviewed, Interpreted and Dictated by Rik Layton MD Transcribed by Aniya Marin Authenticated and [facility]
== END 2024-10-22 23:59 | disposition home or self-care (01) ==
LOC: RAD 11:41
PROVIDERS: PCP Nurse Practitioner Family; Visit Provider Physician Assistant
DX: M17.0 Bilateral primary osteoarthritis of knee (principal)
CPT/HCPCS: 73562

== ENCOUNTER 2024-11-26 09:49 | Outpatient (CLI) | payer MEDICARE, OTHER, SELFPAY ==
--- NOTE | 2024-11-26 09:53 | XR_ITS ---
FINAL REPORT CLINICAL HISTORY: wheezing, cough x 1 mo COMPARISON: 05/29/2023 FINDINGS: No acute pulmonary density is evident. There is no evidence of effusion or other pleural disease. The mediastinum has a normal appearance. The cardiac silhouette is unremarkable. IMPRESSION: Unremarkable chest exam. Reviewed, Interpreted and Dictated by Velasquez Causey MD Transcribed by Nora Connolly Authenticated and . [facility]
== END 2024-11-26 23:59 | disposition home or self-care (01) ==
LOC: RAD 09:51
PROVIDERS: PCP Nurse Practitioner Family; Visit Provider Nurse Practitioner Family
DX: R05.9 Cough, unspecified (principal); J45.901 Unspecified asthma with (acute) exacerbation
CPT/HCPCS: 71046

== ENCOUNTER 2025-01-28 08:55 | Outpatient (RCR) | payer MEDICARE, OTHER, SELFPAY | END 2025-01-28 23:59 | disposition home or self-care (01) | LOC: PT 08:55 | PROVIDERS: PCP Nurse Practitioner Family; Visit Provider Student in an Organized Health Care Education/Training Program | DX: Z96.652 Presence of left artificial knee joint (principal); M17.12 Unilateral primary osteoarthritis, left knee | CPT/HCPCS: 97110; 97163 ==

== ENCOUNTER 2025-02-28 08:00 | Outpatient (RCR) | payer MEDICARE, OTHER, SELFPAY | END 2025-02-28 23:59 | disposition home or self-care (01) | LOC: PT 08:00 | PROVIDERS: PCP Nurse Practitioner Family; Visit Provider Student in an Organized Health Care Education/Training Program | DX: M17.9 Osteoarthritis of knee, unspecified (principal) | CPT/HCPCS: 97110; 97140; 97530 ==

== ENCOUNTER 2025-03-20 08:00 | Outpatient (RCR) | payer MEDICARE, OTHER, SELFPAY | END 2025-03-20 23:59 | disposition home or self-care (01) | LOC: PT 08:00 | PROVIDERS: PCP Nurse Practitioner Family; Visit Provider Student in an Organized Health Care Education/Training Program | DX: M17.9 Osteoarthritis of knee, unspecified (principal) | CPT/HCPCS: 97110; 97530 ==

== ENCOUNTER 2025-03-29 16:06 | Emergency (ER) | payer MEDICARE, OTHER, SELFPAY ==
--- OUTSIDE RECORDS SUMMARY | 2003-11-06 10:00 | XMS_ITS | Continuity of Care Document ---
Author Name [facility] Organization [facility] Care Team Providers Care Automotive Service Assistant Name Role Phone [facility] Unavailable Unavailable Problems Combined list of problems from Department of [facility] and [facility] Affairs facilities. It does not include entries that were removed or entered in error. Problem Status Onset Date Problem Type Date of Resolution Comments Source Elevated Prostate Specific Antigen (PSA) (ICD-9-CM 790.93) Active Condition [facility] Gastroesophageal reflux disease Active Condition [facility] Osteoarthritis * (ICD-9-CM 715.90) Active Condition [facility] Tobacco dependence syndrome Active Condition [facility] Immunizations Combined list of available immunizations from the Department of [facility] and [facility] Affairs facilities. 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 Social History Type Response Date Comment Sourc e Tobacco smoking status DEIS HF V9 CURRENT SMOKER 11/06/2003 pt smokes 10/03/ [facility]
[2025-03-29] VITALS (9 sets, daily range): BP systolic 80–127; BP diastolic 56–83; PULSE 78–110; RESP 16–20; TEMP 36.6–36.7; O2SAT 94–99; BMI 31.8
--- OUTSIDE RECORDS SUMMARY | 2025-03-29 16:37 | XMS_ITS | Continuity of Care Document ---
Author Organization [facility] Address [address] [place] [address] [place] [address] Care Team Providers Care Occupational Therapist Home Based Name Role Phone OLEGARIO MCDONNELL Primary Care Provider [phone] Assessment No assessment recorded. Plan of Treatment Reminders Order Date Submit Date Provider Last Modified By Organization Details Last Modified Time Details Appointments None record ed. Lab None record ed. Referral None record ed. Procedures None record ed. Surgeries None record ed. Imaging XR, knee 025 02/27/20 25 [email or web address] [facility], [address] [place] [address] [place], [address], 15:15:36 Medication Orders None record ed. Patient TargetsNo targets recorded. Patient InstructionsNo instructions recorded. Reason for Referral None Reported. Results Created Date Observation Date Name Description Value Unit Range Abnormal Flag Note LastModifiedBy Organization Detail LastModifiedTime 02/27/20 25 XR, knee No observ ation record ed. DENI [address] [place], [address], 02/26/2025 13:50:33 Result Notes None recorded. Procedures Surgical History Date Name Laterality Status Provider Name and Address Organization Details Recorded Time LASIK completed [place] - L [facility] 01/13/2025 09:57:26 Other completed [facility] [facility] 01/13/2025 09:57:26 Imaging Results None recorded. Procedure Notes None recorded. Medical Equipment None Reported. Allergies No known drug allergies Medications Name Sig Start Date Stop Date Status Note LastModified by Organization Details LastModified Time losartan 50 mg tablet TAKE ONE TABLET BY MOUTH EVERY DAY active Not Available Not Available No t Available ipratropium 0.5 mg-albutero l 3 mg (2.5 mg base)/3 mL nebulizatio n soln INHALE THE CONTENTS OF 1 VIAL VIA NEBULIZER EVERY 4 TO 6 HOURS NEEDED FOR SHORTNESS OF BREATH OR wheezing active Not Available Not Available No t Available trazodone 50 mg tablet TAKE ONE TABLET BY MOUTH ONCE DAILY AT BEDTIME NEEDED active Not Available Not Available No t Available azithromyci n 250 mg tablet TAKE 2 TABLETS BY MOUTH ON DAY 1, THEN TAKE 1 TABLET DAILY ON DAYS 2-5 -- FINISH ALL MEDICINE -- 12/18 completed Not Available Not Available Not Available hydrocodone 5 mg-acetamin ophen 325 mg tablet TAKE ONE TABLET BY MOUTH EVERY 6 HOURS NEEDED FOR post op pain MAY CAUSE DROWSINES S 12/18 completed Not Available Not Available Not Available prazosin 1 mg capsule TAKE TWO CAPSULES BY MOUTH EVERY DAY AT BEDTIME active Not Available Not Available No t Available aspirin 81 mg tablet,naina yed release TAKE ONE TABLET BY MOUTH TWICE DAILY FOR dvt preventio n active Not Available Not Available No t Available cefadroxil 500 mg capsule TAKE ONE CAPSULE BY MOUTH TWICE DAILY FOR 7 DAYS -- FINISH ALL MEDICINE -- active Not Available Not Available No t Available oxycodone-a cetaminophe n 5 mg-325 mg tablet TAKE ONE TABLET BY MOUTH EVERY 4 HOURS NEEDED FOR PAIN MAY CAUSE DROWSINES S active Not Available Not Available No t Available methocarbam ol 750 mg tablet TAKE ONE TABLET BY MOUTH FOUR TIMES DAILY NEEDED FOR MUSCLE SPASMS MAY CAUSE DROWSINES S active Not Available Not Available No t Available promethazin e 25 mg tablet TAKE ONE TABLET BY MOUTH EVERY 6 HOURS NEEDED FOR NAUSEA active Not Available Not Available No t Available losartan 25 mg tablet TAKE ONE TABLET BY MOUTH EVERY DAY active Not Available Not Available No t Available irbesartan 75 mg tablet TAKE ONE TABLET BY MOUTH EVERY DAY 12/18 completed Not Available Not Available Not Available dorzolamide 22.3 mg-timolol 6.8 mg/mL eye drops INSTILL ONE DROP into affected eye(s) TWICE DAILY active Not Available Not Available No t Available epinephrine 0.3 mg/0.3 mL injection, auto-inject or inject THE contents of 1 pen intramusc ularly every 5-15 minutes NEEDED FOR anaphylax is. DO not exceed 3 doses PER episode active Not Available Not Available No t Available methylpredn isolone 4 mg tablets in a dose pack TAKE ACCORDING TO PACKAGE INSTRUCTI ONS --TAKE WITH FOOD-- -- FINISH ALL MEDICINE -- 12/18 completed Not Available Not Available Not Available Trelegy Ellipta 100 mcg-62.5 mcg-25 mcg powder for inhalation INHALE 1 PUFF BY MOUTH EVERY DAY active Not Available Not Available No t Available Airsupra 90 mcg-80 mcg/actuati on HFA aerosol inhaler INHALE TWO PUFFS BY MOUTH SIX TIMES DAILY NEEDED FOR SHORTNESS OF BREATH OR wheezing active Not Available Not Available No t Available Vitals None Recorded Social History Question Answer Notes LastModified by Organizat ion Details LastModified Time Tobacco Smoking Status [facility] 01/13/2025 09:57:22 Do You Have An Advance Directive? No Information not available 01/13/2025 Are You Blind Or Do You Have Difficulty Seeing? Yes Information not available 01/13/2025 What Was The Date Of Your Most Recent Tobacco Screening? 12/18/2024 Information not available 01/13/2025 Are You Passively Exposed To Smoke? Yes Information not available 01/13/2025 How Much Tobacco Do You Smoke? No Information not available 01/13/2025 How Many Years Have You Smoked Tobacco? 20 Information not available 01/13/2025 Sex: Male Functional Status Question Answer Note LastModified by Organizat ion Details LastModified Time Do you use any illicit or recreational drugs? No Information not available 01/13/2025 What is your level of alcohol consumption? Occasional Information not available 01/13/2025 Do you or have you ever used smokeless tobacco? Current snuff user Information not available 01/13/2025 What is your exercise level? Moderate Information not available 01/13/2025 Mental Status Question Answer Note LastModified by Organization D etails LastModified Time Do you feel stressed (tense, restless, nervous, or anxious, or unable to sleep at night)? [id number] Information not available 01/13/2025 Family History Nothing Reported. Medical History Condition Response Vision or Eye Problems Y Arthritis Y Reflux/GERD Y Heart Attack (MD) Y Back Problems Y Hypertension Y Immunizations Vaccine Type Date Status Note Provider Nam e and Address Organization Details Recorded Time Influenza, high-dose, quadrivalent, PF 10/10/2023 completed Joanne Lovell-Pitakis null, [place] - [facility] & [place] 02/26/2025 13:49:56 COVID-19, mRNA, LNP-S, PF, 100 mcg/0.5mL dose or 50 mcg/0.25mL dose 12/30/2020 completed Joanne Lovell-Pitakis null, [place] - [facility] - [place] & [place] 02/26/2025 13:49:56 COVID-19, mRNA, LNP-S, PF, 100 mcg/0.5mL dose or 50 mcg/0.25mL dose 01/27/2021 completed Joanne Lovell-Pitakis null, [place] - [facility] - [place] & [place] 02/26/2025 13:49:56 Influenza, split virus, quadrivalent, PF 06/11/2018 completed Joanne Lovell-Pitakis null, [place] - [facility] - [place] & [place] 02/26/2025 13:49:56 Influenza, split virus, quadrivalent, PF 06/24/2020 completed Joanne Lovell-Pitakis null, [place] - [facility] - [place] & [place] 02/26/2025 13:49:56 Influenza, split virus, quadrivalent, PF 2021 completed Joanne Lovell-Pitakis null, [place] - [facility] - [place] & [place] 02/26/2025 13:49:56 Past Encounters Encounter ID Performer Location Encounter Start Date Encounter Closed Date Diagnosis/Indication Diagnosis SNOMED-CT Code Diagnosis ICD10 Code Diagnosis Note [id number] DO ZAIN MCGEE [address] [address] 02/26/2025 13:36:07 02/26/2025 14:04:57 History of left total knee replacement [id number] 053511 Z96.652 Follow-up orthopedic assessment 644052135 Z47.89 Health Concerns Section Related Observation LastModified by Organization Detai ls LastModified Time None Recorded Concern Status LastModified by Organization Details LastModified Time None Recorded Payers Encounter Date Sequence Insurance Name Policy Number Policy Yu Covered Member ID Yu Member ID Guarantor Name 02/26/2025 1 [place] Xavier Mooney [id number] Xavier Mooney 02/26/2025 2 FOR LIFE ( - MEDICARE SUPPLEMENT) Xavier Mooney [id number] Xavier Mooney Notes Date Note Type Note Provider Name and Address Organization Details Recorded Time 02/26/2025 text/html This is a 69 y/o male here today for 6 week post op left Total knee arthroplasty; DOS 4.1.25 with x-rays. Patient is doing well. No longer using walker/cane to ambulate. Patient states outpatient PT is going well. Going BID and doing exercises at home. Patient is able to get to 0-122. No longer taking anything for pain. E4AP LIBERTY SAAVEDRA DO [address] [facility],[address], [place], [address], [facility] - [place] - [place] & [place] 02/27/2025 09:25:13
--- OUTSIDE RECORDS SUMMARY | 2025-03-29 16:37 | XMS_ITS | Data Portability ---
Author Organization [place] [facility] Address [address] [place] [address] Care Team Providers Care Rag Washer Name Role Phone OLEGARIO MCDONNELL Primary Care Provider Assessment No assessment recorded. Plan of Treatment Reminders Order Date Submit Date Provider Last Modified By Organization Details Last Modified Time Details Appointments None recorded. Lab None recorded. Referral None recorded. Procedures None recorded. Surgeries None recorded. Imaging XR, knee 2024 025 zoila [facility], [address] [place] [address] [place], [address], 15:15:36 CT, knee, w/o contrast - left knee- ANA protocol for TKA scheduled on 12/31/242024 025 zoila [place] (Centralized Scheduling)[facility] [place], [address], 5 08:23:02 Medication Orders None recorded. Patient TargetsNo targets recorded. Patient InstructionsNo instructions recorded. Reason for Referral None Reported. Results Created Date Observation Date Name Description Value Unit Range Abnormal Flag Note LastModifiedBy Organization Detail LastModifiedTime 12/19/1912/18/2024 CBC W/O DIFF note See Note Order ing Provi collins: Canelo Saavedra DO Not Available [place] [address] [place], [address], 12/18/2024 10:41:14 12/19/19 25 12/18/2024 CBC W/O DIFF white blood cell 11.8 10e3/ uL 4.5-13 .0 normal Not Available [place] [address], [place], [address], 12/18/2024 10:41:14 12/19/19 25 12/18/2024 CBC W/O DIFF red blood cell 5.20 10e6/ uL 4.10-5 .70 normal Not Available [address] [place], [place], [address], 12/18/2024 10:41:14 12/19/19 25 12/18/2024 CBC W/O DIFF hemoglobin 15.3 g/dL 12.0-1 6.9 normal Not Available [place] [address], [place], [address], 12/18/2024 10:41:14 12/19/19 25 12/18/2024 CBC W/O DIFF hematocrit 46.8 % 36.0-4 9.0 normal Not Available [place] [address], [place], [address], 12/18/2024 10:41:14 12/19/19 25 12/18/2024 CBC W/O DIFF mean cell volume 90 fL 78.0-9 8.0 normal Not Available [place] [address], [place], [address], 12/18/2024 10:41:14 12/19/19 25 12/18/2024 CBC W/O DIFF mean cell HGB 29.4 pg 25.0-3 5.0 normal Not Available [place] [address], [place], [address], 12/18/2024 10:41:14 12/19/19 25 12/18/2024 CBC W/O DIFF mean cell HGB concentratio n 32.7 g/dL 31.0-3 6.0 normal Not Available [address] [place], [place], [address], 12/18/2024 10:41:14 12/19/19 25 12/18/2024 CBC W/O DIFF red cell distribution width 13.6 % 11.0-1 5.0 normal Not Available [address] [place], [place], [address], 12/18/2024 10:41:14 12/19/19 25 12/18/2024 CBC W/O DIFF platelet count 278 10e3/ uL 150-40 0 normal Not Available [address] [place], [place], [address], 12/18/2024 10:41:14 12/19/19 25 12/18/2024 CBC W/O DIFF performing lab see note - [facility] R [address] [place] [address] DRIVE [facility] [address] Not Available [address] [place], [place], [address], 12/18/2024 10:41:14 12/19/19 25 12/18/2024 ELECT ROLYT ES PANEL note See Note Order ing Provi collins: Canelo H Quentin DO Not Available [address] , [place], [address], 12/18/2024 10:57:40 12/19/19 25 12/18/2024 ELECT ROLYT ES PANEL sodium 137 mmol/ L 136-14 5 normal Not Available [address] [place], [place], [address], 12/18/2024 10:57:40 12/19/19 25 12/18/2024 ELECT ROLYT ES PANEL potassium 4.4 mmol/ L 3.5-5. 1 normal Not Available [address] [place], [address], 12/18/2024 10:57:40 12/19/19 25 12/18/2024 ELECT ROLYT ES PANEL chloride 103 mmol/ L 98-107 normal Not Available [address] , [place], [address], 12/18/2024 10:57:40 12/19/19 25 12/18/2024 ELECT ROLYT ES PANEL carbon dioxide 29 mmol/ L 24-33 normal Not Available [address] , [place], [address], 12/18/2024 10:57:40 12/19/19 25 12/18/2024 ELECT ROLYT ES PANEL anion gap 9.4 mmol/ L 10-20 low Not Available [address] , [place], [address], 12/18/2024 10:57:40 12/19/19 25 12/18/2024 ELECT ROLYT ES PANEL performing lab see note ML - [facility] R [address] [facility] [address] Not Available [address] , [place], [address], 12/18/2024 10:57:40 12/19/19 25 12/18/2024 BLOOD UREA NITRO GEN note See Note Order ing Provi collins: Canelo Saavedra DO Not Available [address] , [place], [address], 12/18/2024 10:57:41 12/19/19 25 12/18/2024 BLOOD UREA NITRO GEN blood urea nitrogen 15 mg/dL 7-18 normal Not Available [address] , [place], [address], 12/18/2024 10:57:41 12/19/19 25 12/18/2024 BLOOD UREA NITRO GEN performing lab see note ML - [facility] R [address] [facility] [address] Not Available [address] , [place], [address], 12/18/2024 10:57:41 12/19/19 25 12/18/2024 CREAT ININE W/GFR note See Note Order ing Provi collins: Canelo Saavedra DO Not Available [address] , [place], [address], 12/18/2024 10:57:41 12/19/19 25 12/18/2024 CREAT ININE W/GFR creatinine 1.38 mg/dL 0.70-1 .30 high Not Available [address] , [place], [address], 12/18/2024 10:57:41 12/19/19 25 12/18/2024 CREAT ININE W/GFR GFR (estimated) 56 mL/mi n >60 low [IM LEILANI NT]: The 2020 CKD-E PI equat ion is now the recom manuelito d stand marquis. This versi on does not inclu de race, as do the 2008 and 2011 CKD-E PI creat inine and creat inine -cyst atin C equat ions. Pleas e note that the eGFR now repor venkata is gener ated by the new 2020 CKD-E PI equat ion, which decre ases the eGFR for black s by up to 10% and incre ases the eGFR for non-b lacks by up to 10% in tom rison to the old equat ion. To tom re a legac y eGFR to a curre nt value , a 2008 CKD-E PI calcu lator is easil y searc hable on the inter net. Calcu lated GFR: This calcu lated GFR is advoc ated by the Natio nal Kidne y Found ation to be used as an indic ator of Chron ic Kidne y Disea se (CKD) . 5 Stage s of Chron ic Kidne y Disea se. Stage 1 90 mL/mi n or more Healt hy kidne ys or Kidne y damag e with taqueria l or high GFR detai ls Stage 2 60 to 89 mL/mi n Kidne y damag e and mild decre ase in GFR detai ls Stage 3 30 to 59 mL/mi n Moder ate decre ase in GFR detai ls Stage 4 15 to 29 mL/mi n Sever e decre ase in GFR detai ls Stage 5 Less than 15 mL/mi n On dialy sis or Kidne y failu re Patie nt's clini son statu s must be consi dered for the care of your patie nt. Not Available [address] , [place], [address], 12/18/2024 10:57:41 12/19/19 25 12/18/2024 CREAT ININE W/GFR performing lab see note - [facility] R [address] [facility] [address] Not Available [address] , [place], [address], 12/18/2024 10:57:41 12/19/19 25 12/18/2024 GLYCO HEMOG LOBIN (HGB A1C) note See Note Order ing Provi collins: Canelo Saavedra DO Not Available [address] , [place], [address], 12/18/2024 11:06:18 12/19/19 25 12/18/2024 GLYCO HEMOG LOBIN (HGB A1C) glycohemoglo bin (HGB A1C) 5.8 % 4.5-6. 2 normal Predi abete s: 5.7 - 6.4 Diabe smita: >6.4 Glyce gia contr ol for adult s with diabe smita: <7.0 Not Available [address] , [place], [address], 12/18/2024 11:06:18 12/19/19 25 12/18/2024 GLYCO HEMOG LOBIN (HGB A1C) performing lab see note ML - [facility] [address] [address] Not Available [address] , [place], [address], 12/18/2024 11:06:18 12/19/19 25 12/18/2024 FRUCT OSAMI NE note See Note Order ing Provi collins: Canelo Saavedra DO Not Available [address] , [place], [address], 12/19/2024 16:12:58 12/19/19 25 12/18/2024 FRUCT OSAMI NE fructosamine 198 umol/ L 0-285 Publi shed refer ence inter elly for appar ently healt hy subje cts betwe en age 20 and 60 is 205 - 285 umol/ L and in a poorl y contr olled diabe tic popul ation is 228 - 563 umol/ L with a mean of 396 umol/ L. Perfo rmed At: CB, [facility] n [address] [facility], [place], [address] Lev shira tatum, PhD, Phone : [phone] Not Available [address] , [place], [address], 12/19/2024 16:12:58 12/19/19 25 12/18/2024 FRUCT OSAMI NE performing lab see note LC2 - LAB[facility] RP CLIEN T# [id number] [id number] [address] [place] [address] Not Available [address] [place], [address], 12/19/2024 16:12:58 01/01/20 25 12/31/2024 GLUCO SE POINT OF CARE note See Note Order ing Provi collins: Canelo Saavedra DO Not Available [address] , [place], [address], 12/31/2024 06:34:31 01/01/20 25 12/31/2024 GLUCO SE POINT OF CARE glucose point of care 121 mg/dL 70-99 high Not Available [address] [place], [address], 12/31/2024 06:34:31 01/01/20 25 12/31/2024 GLUCO SE POINT OF CARE performing lab see note [facility] - [address] [place] [address] Not Available [address] [place], [address], 12/31/2024 06:34:31 12/19/19 XR, knee No observ ation record ed. Not Available 2024 09:17:20 12/19/19 25 12/18/2024 XR, chest , 2 view [facility] Name: GE[facility]GET[facility]PLETON [facility] Phys: [place] [address] : 1954 Age: 69 Sex: M Acct: [id number] Loc: G.CT PHONE #: [phone] Exam Date: 2024 Status : REG CLI FAX #: Rad# [id number] Unit# [id number] Admit Date: 2024 EXAMS: CPT CODE: [id number] CHEST 2 VIEWS 98017 Chest x-ray: 2 views CLINIC AL INDICA TION: Preope rative for total knee arthro plasty COMPAR KATIE: None. Findin gs: Trache a and medias tinum are midlin e. Cardia c silhou ette is within normal limits . There is no focal lung consol idatio n or effusi on. Impres gavin: Lungs are clear. Electr onical ly signed by: Morris Jaime MD 2024 07:35 PM EDT RP Workst ation: [id number] 15PRR Electr onical ly Signed by MORRIS JAIME on 2024 at 1935 Report ed and signed by: Jazmine JAIME CC: Olegario tran APRN; Canelo Barnard Quentin Dictat ed Date/T yobani: 2024 (1934) Techno logist : RODERICK CM N RT(R)( CT) Transc ribed Date/T yobani: 2024 (1934) Transc riptio nist: SHE Electr onic Signat ure Date/T yobani: 2024 (1934) Printe d Date/T yobani: 2024 (2017) BATCH NO: N/A PAGE 1 Signed Report CC'ed Logic: Orderi ng Provid er: QUENTIN KOENIG Attend ing Provid er: QUENTIN KOENIG Referr ing Provid er: QUENTIN KOENIG Consul ting Provid er: JC MELVIN [email or web address] , [place], [address], 12/19/2024 07:42:22 12/19/19 25 12/18/2024 - CT lower ext w/o cont lt [facility] al Medica l Ce Name: GEORGETTE TEMPLETON [address] Phys: Quentin [place] [address] : 1954 Age: 69 Sex: M Acct: [id number] Loc: G.CT PHONE #: Exam Date: 2024 Status : REG CLI FAX #: [phone] Rad# [id number] Unit# [id number] Admit Date: 2024 EXAMS: CPT CODE: [id number] [place] L[place] EXT W/[place] [address] EXAMIN ATION: CT BONE -LEFT KNEE CLINIC AL INDICA TION: Male, 69 years old. Knee pain COMPAR KATIE: None. TECHNI QUE: CT images were obtain ed with varghese l and venancio al recons tructi ons of the left knee withou t contra st. One or more of the follow ing dose reduct ion techni ques were used: Automa venkata exposu re contro l, adjust ment of the mA and/or kV accord ing to patien t size, and/or iterat arturo recons tructi on. Unless otherw ise specif ied, incide ntal findin gs do not requir e dedica venkata imagin g follow -up. [id number] . IV CONTRA ST: None FINDIN GS: There is severe medial compar tment joint space narrow ing with vacuum disc phenom cinda and margin al spurri ng. There is mojica dali of the medial tibial spine. There is mild patell ofemor al joint space narrow ing with margin al spurri ng. There is no acute fractu re or disloc ation. There is no sizabl e joint effusi on. IMPRES GAVIN: Degene rative change s of the knee, as above Electr onical ly signed by: Morris Jaime MD 2024 07:36 PM EDT RP Workst ation: [id number] 15PRR Electr onical ly Signed by MORRIS JAIME on 2024 at 1935 Report ed and signed by: Jazmine JAIME CC: Olegario tran APRN; Canelo Saavedra DO Dictat ed Date/T yobani: 2024 (1934) Techno logist : KENYA Monteiro Transc ribed Date/T yobani: 2024 (1934) Transc riptio nist: DR.BAT MOSLEY Electr onic Signat ure Date/T yobani: 2024 (1934) Printe d Date/T yobani: 2024 (2017) BATCH NO: N/A PAGE 1 Signed Report CC'ed Logic: Orderi ng Provid er: QUENTIN KOENIG Attend ing Provid er: QUENTIN KOENIG Referr ing Provid er: QUENTIN KOENIG Consul ting Provid er: JC MELVIN [email or web address] , [place], [address], 12/19/2024 07:42:22 01/16/20 25 01/03/2025 XR, knee, 1 or 2 view [place] [facility] Med[facility] Ce Name: GEORGETTE TEMPLETON [address] [employer] Phys: [place] [address] : 1954 Age: 69 Sex: M Acct: [id number] Loc: SIA PHONE #: [phone] Exam Date: 2024 Status : DEP [facility] FAX #: [phone] Rad# [id number] Unit# [id number] Admit Date: 2024 EXAMS: CPT CODE: [id number] KNEE AP LATERA L LEFT 71907 EXAM: XR KNEE 3 VIEWS LEFT HISTOR Y: iagnos is? post-o p evalua tion of implan ts. Show implan ts. COMPAR KATIE: None. FINDIN GS: 2 views of the left knee demons trate postop erativ e change s from left total knee arthro plasty . The orthop edic compon ents are in expect ed positi on. No immedi ate compli cation identi fied. Artifa ct from an overly ing brace or compre ssion device is eviden t.. IMPRES GAVIN: Expect ed postop erativ e change s from left total knee arthro plasty . Electr onical ly signed by: Boston Camarillo MD 2024 01:39 PM EDT RP Workst ation: [id number] Electr onical ly Signed by BOSTON CAMARILLO on 2024 at 1332 Report ed and signed by: Mahad CAMARILLO CC: Olegario tran APRN; Canelo Akil Saavedra Dictat ed Date/T yobani: 2024 (1332) Techno logist : FIONA HILLS; JANAK FARIAS S, R.T. (R) Transc ribed Date/T yobani: 2024 (1332) Transc riptio nist: DR.CAI QUINN Electr onic Signat ure Date/T yobani: 2024 (1332) Printe d Date/T yobani: 2024 (1006) BATCH NO: N/A PAGE 1 Signed Report CC'ed Logic: Orderi ng Provid er: QUENTIN KOENIG Attend ing Provid er: QUENTIN KOENIG Referr ing Provid er: QUENTIN KOENIG Consul ting Provid er: JC MELVIN [email or web address] , [place], [address], 01/15/2025 10:09:58 02/27/20 25 XR, knee No observ ation record ed. DENI Wright [address] , [place], [address], 02/26/2025 13:50:33 Result Notes Documentation Provider Name and Address Organization Details Recorded Time Xr, Chest, 2 View : [facility] Name: WESTLEY MOONEY [address] [place] [address] Phys: [place] [address] : 1955 Age: 69 Sex: M Acct: [id number] Loc: G.CT PHONE #: Exam Date: 12/18/2024 Status: REG CLI FAX #: Rad# [id number] Unit# [id number] Admit Date: 12/18/2024 EXAMS: CPT CODE: [id number] CHEST 2 VIEWS 06920 Chest x-ray: 2 views CLINICAL INDICATION: Preoperative for total knee arthroplasty COMPARISON: None. Findings: Trachea and mediastinum are midline. Cardiac silhouette is within normal limits. There is no focal lung consolidation or effusion. Impression: Lungs are clear. Electronically signed by: Areli Jaime MD 12/18/2024 07:35 PM EDT at 1935 Reported and signed by: ARELI JAIME CC: Olegario Mcdonnell APRN; Canelo Saavedra DO Dictated Date/Time: 12/18/2024 (1934) Technologist: RODERICK GORDON RT(R)(CT) Transcribed Date/Time: 12/18/2024 (1934) Black Studies Professor: Electronic Signature Date/Time: 12/18/2024 (1934) Printed Date/Time: 12/18/2024 (2017) BATCH NO: N/A PAGE 1 Signed Report CC'ed Logic: Ordering Provider: QUENTIN KOENIG Attending Provider: QUENTIN KOENIG Referring Provider: QUENTIN KOENIG Consulting Provider: SATHYA Castro [facility], [facility] 12/19/2024 07:42:22 Xr, Knee, 1 Or 2 View : [facility] Ce Name: WESTLEY MOONEY [employer] Phys: Can[place] [address] : 1955 Age: 69 Sex: M Acct: [id number] Loc: SIA PHONE #: Exam Date: 12/31/2024 Status: [facility] FAX #: Rad# [id number] Unit# [id number] Admit Date: 12/31/2024 EXAMS: CPT CODE: [id number] KNEE AP LATERAL LEFT 61552 EXAM: XR KNEE 3 VIEWS LEFT HISTORY: iagnosis? post-op evaluation of implants. Show implants. COMPARISON: None. FINDINGS: 2 views of the left knee demonstrate postoperative changes from left total knee arthroplasty. The orthopedic components are in expected position. No immediate complication identified. Artifact from an overlying brace or compression device is evident.. IMPRESSION: Expected postoperative changes from left total knee arthroplasty. Electronically signed by: Boston Camarillo MD 01/03/2025 01:39 PM EDT at 1332 Reported and signed by: BOSTON CAMARILLO CC: Olegario Mcdonnell APRN; Canelo Saavedra DO Dictated Date/Time: 01/03/2025 (1332) Technologist: COLIN HILLS; Ann JIMÉNEZ (R) Transcribed Date/Time: 01/03/2025 (6182) Black Studies Professor: Electronic Signature Date/Time: 01/03/2025 (1332) Printed Date/Time: 01/15/2025 (1006) BATCH NO: N/A PAGE 1 Signed Report CC'ed Logic: Ordering Provider: QUENTIN KOENIG Attending Provider: QUENTIN KOENIG Referring Provider: QUENTIN KOENIG Consulting Provider: SATHYA Castro Joaquim null, [place] - [facility] - [place] & [place] 01/15/2025 10:09:58 Procedures Surgical History Date Name Laterality Status Provider Name and Address Organization Details Recorded Time LASIK completed Anabel Perkinsis [place] & [place] 01/13/2025 09:57:26 Other completed Anabel Perkinsis [place] & [place] 01/13/2025 09:57:26 Imaging Results None recorded. Procedure [...] Available Not Available No t Available Vitals Date Recorded Body height Body mass index (BMI) Body weight Provider Name and Address Organization Details Last Updated DateTime 12/18/2024 185.42 cm 33.3 kg/m2 165080.43 g Anabel Phan [facility] & [place] 12/18/2024 09:38:34 Date Recorded Body height Provider Name an d Address Organization Details Last Updated DateTime 01/13/2025 185.42 cm Anabel Collins [place] - [facility] & [place] 01/13/2025 09:57:09 Social History Question Answer Notes LastModified by Organizat ion Details LastModified Time Tobacco Smoking Status Former Smoker Anabel Collins null, [place] - [facility] - [place] & [place] 01/13/2025 09:57:22 Do You Have An Advance [...] anxious, or unable to sleep at night)? [id number] Information not available 01/13/2025 Family History Nothing Reported. Medical History Condition Response Heart Attack (MD) Y Vision or Eye Problems Y Arthritis Y Back Problems Y Reflux/GERD Y Hypertension Y Immunizations Vaccine Type Date Status Note Provider Nam e and Address Organization Details Recorded Time Influenza, high-dose, quadrivalent, PF 10/10/2023 completed Joanne [place] null, [place] [facility] - [place] & [place] 02/26/2025 13:49:56 COVID-19, mRNA, LNP-S, PF, 100 mcg/0.5mL dose or 50 mcg/0.25mL dose 12/30/2020 completed Joanne [place], [place] [facility] - [place] & [place] 02/26/2025 13:49:56 COVID-19, mRNA, LNP-S, PF, 100 mcg/0.5mL dose or 50 mcg/0.25mL dose 01/27/2021 completed Joanne Lovell-Pitakis [place] [facility] - [place] & [place] 02/26/2025 13:49:56 Influenza, split virus, quadrivalent, PF 06/11/2018 completed Joanne Lovell-Pitakis [place] [facility] [place] 02/26/2025 13:49:56 Influenza, split virus, quadrivalent, PF 06/24/2020 completed Joanne Lovell-Pitakis [place] [facility] [place] 02/26/2025 13:49:56 Influenza, split virus, quadrivalent, PF 2021 completed Joanne Lovell-Pitakis [place] [facility] [place] 02/26/2025 13:49:56 Past Encounters Encounter ID Performer Location Encounter Start Date Encounter Closed Date Diagnosis/Indication Diagnosis SNOMED-CT Code Diagnosis ICD10 Code Diagnosis Note [id number] CANELO SAAVEDRA DO [place] [address] 9 12/18/2024 08:39:36 12/18/2024 09:52:39 Osteoarthritis of left knee joint 1046708234 63634 M17.12 [id number] CANELO SAAVEDRA DO [place] [id number] 01/13/2025 09:44:15 01/13/2025 10:46:06 History of left total knee replacement 2480659516 361086 Z96.652 Follow-up orthopedic assessment 395036415 Z47.89 [id number] CANELO SAAVEDRA DO [address] [address] 02/26/2025 13:36:07 02/26/2025 14:04:57 History of left total knee replacement 9901861795 607455 Z96.652 Follow-up orthopedic assessment 550076158 Z47.89 Health Concerns Section Related Observation LastModified by Organization Detai ls LastModified Time None Recorded Concern Status LastModified by Organization Details LastModified Time None Recorded Advance Directives Directive N: Payers Insurance Date Sequence Insurance Name Policy Number Policy Yu Covered Member ID Yu Member ID Guarantor Name 03/01/2025 2 FOR LIFE ( - MEDICARE SUPPLEMENT) Westley Mooney [id number] Westley Mooney 02/23/2025 1 MEDICARE-[place] (MEDICARE) Westley Mooney [id number] Westley Mooney Notes Date Note Type Note Provider Name and Address Organization Details Recorded Time 12/18/2024 text/html Pt is here for b il knee pain with the left worse then the rt. This is chronic of several years. He has had several inj's in the past of gel and steroids with his last gel in both knees in Oct [address] Sheets office in [place] . He had rt knee scope with menisectomy in 1979. He had left knee scope in March [address] Valera in [facility]. He reports constant in both knee but left is worse. Has pain medial and lateral knees- MRI left knee w/o [facility] 5.31.24: Significant deg. changes in the medial compartment associated with a macerated tear involving much of the medial meniscus.left knee x-rays @ [facility] 1..25: There is moderate narrowing of hte medial compartment.right knee x-rays @ [facility] 1..25: Advanced medial compartment joint space narrowing and subchondral sclerosis. There is an osteochondral lesion along the articular surface of medial femoral condyle measuring 8 mm. E2SF CANELO [place]RA[place] [address] [place] [address],[address], [place], [address], [facility] - [place] - [place] & [place] 12/23/2024 08:56:53 01/13/2025 text/html Pt is here for 2 week pos op left TKA from 12/31/2024. His incision is intact. No redness or s/s of infection. H.H coming to his him 2-3 days a week. He would like to come here at [facility] OP PT. He continues to wear his VENKATA hose. -E5SF CANELO SAAVEDRA [address] [facility] [place],[address], [place], [address], [facility] - [place] & [place] 01/14/2025 13:17:04 02/26/2025 text/html This is a 69 y/o male here today for 6 week post op left Total knee arthroplasty; DOS 4.1.25 with x-rays. Patient is doing well. No longer using walker/cane to ambulate. Patient states outpatient PT is going well. Going BID and doing exercises at home. Patient is able to get to 0-122. No longer taking anything for pain. E4AP CANELO QUENTIN, [address], [place], [address], [place] - [facility] - [place] & [place] 02/27/2025 09:25:13
[2025-03-29] MEDS: 0.9 % SODIUM CHLORIDE 1000ML 1,000 ML 999 ML IV (16:44)
[2025-03-29] MEDS: ONDANSETRON 4MG/2ML VIAL 4 MG IV (16:45)
[2025-03-29 16:50] LABS: Basophils % 0.3 % (0.1-2.0); Eosinophils # 0.1 Kmm3 (0.0-0.4); Eosinophils % 0.9 % (0.1-12.0); Hematocrit 53.7 % (42.0-52.0); Hemoglobin 16.4 g/dL (14.1-18.0); Immature Granulocytes # 0.03 10^3uL; Immature Granulocytes % 0.3 %; Lymphocytes # 1.8 K/mm3 (0.7-4.5); Mean Corpuscular HGB Conc 30.5 g/dL (31.8-35.4); Mean Corpuscular Hemoglobin 27.8 pg (27.0-31.2); Mean Platelet Volume 9.9 fl (7.4-10.4); Monocytes # 0.2 K/mm3 (0.1-1.0); Neutrophils # 7.8 K/mm3 (1.8-7.8); Neutrophils % 78.5 % (37.0-80.0); Nucleated Red Blood Cells # 0 10^3/uL; Nucleated Red Blood Cells % 0 %; Platelet Count 297 K/mm3 (142-424); Red Cell Distribution Width 13.1 % (11.5-17.5); Red Cell Distribution Width-SD 43.8 fL
[2025-03-29 17:00] LABS: Alanine Aminotransferase 24 U/L (12-78); Albumin Level 4.4 g/dl (3.5-5.0); Albumin/Globulin Ratio 0.9 (1.1-1.8); Alkaline Phosphatase 55 U/L (38-126); Aspartate Amino Transferase 35 U/L (17-59); Bilirubin,Total 0.8 mg/dl (0.2-1.3); Blood Urea Nitrogen 32 mg/dl (9-20); Carbon Dioxide 19 mmol/L (22.0-30.0); Chloride 104 mmol/L (98-107); Creatinine Clearance Estimated 45 mL/min (50-200); Estimated Glomerular Filt Rate 27 ml/min (>60); GFR (African American) 33 ML/MIN (>60); Globulin 4.7 g/dL (1.3-3.2); Glucose 136 mg/dl (74-100); Sodium 138 mmol/L (136-145); Total Protein,Serum 9.1 g/dl (6.3-8.2)
--- NOTE | 2025-03-29 17:02 | HMH.EDGENADL ---
Discharge Plan Disposition Patient Disposition: Home, Self-Care Prescriptions Prescriptions: New levofloxacin 750 mg tablet 750 mg PO DAILY 1 Days Qty: 1 0RF levofloxacin 750 mg tablet 750 mg PO DAILY 5 Days Qty: 5 0RF ondansetron 4 mg tablet,disintegrating 4 mg PO Q6H PRN (Reason: nausea and vomiting) Qty: 10 0RF No Action Monovisc 88 mg/4 mL syringe 88 mg intra-articular ONCE Qty: 4 0RF dorzolamide-timolol 22.3-6.8 mg/mL drops 1 drp Eye-Both BID Patient Comments: INSTILL ONE DROP into affected eye(s) TWICE DAILY Airsupra 90-80 mcg/actuation HFA aerosol inhaler 2 inh inhalation 6XD PRN (Reason: shortness of breath or wheezing) Qty: 10.7 0RF ipratropium-albuterol 0.5 mg-3 mg(2.5 mg base)/3 mL solution for nebulization 3 ml inhalation Q4-6H PRN (Reason: shortness of breath or wheezing) Qty: 90 0RF epinephrine [EpiPen 2-Santos] 0.3 mg/0.3 mL auto-injector 0.3 mg IM Q5-15M PRN (Reason: anaphylaxis) Qty: 2 2RF Rx Instructions: do not exceed 3 doses per episode trazodone 50 mg tablet See Rx Instructions .ROUTE .COMPLEX Qty: 90 3RF Dose Instruction: TAKE ONE TABLET BY MOUTH ONCE DAILY AT BEDTIME NEEDED Rx Instructions: TAKE ONE TABLET BY MOUTH ONCE DAILY AT BEDTIME NEEDED losartan 50 mg tablet 50 mg PO DAILY 90 Days Qty: 90 2RF losartan 25 mg tablet 25 mg PO DAILY Qty: 90 2RF Trelegy Ellipta 100-62.5-25 mcg blister with device 1 inh inhalation DAILY 90 Days Qty: 3 2RF Referrals Follow up/Referrals: Laura Richardson APRN [Primary Care Provider, Medical] - See instructions Activity Restrictions/Add. Instructions Additional Instructions/Restrictions: 1 day of levofloxacin sent to [facility]. The rest of the 5 remaining days sent to clinic pharmacy as well as [place]. Be sure to stay plenty hydrated and make sure that your urine runs clear. Drink electrolyte containing fluids like Pedialyte, Gatorade, etc. Also be sure to follow-up with your family doctor within 48 hours to have labs redrawn to make sure kidney function is improving. If you have any worsening of your condition or any other concerning signs or symptoms, return to the emergency department or your primary care doctor for further evaluation. Clinical Impressions Clinical Impression: Enteropathogenic Escherichia coli infection, Enteritis due to Rotavirus Instructions Patient Instructions: DI for Diarrhea and Traveler's Diarrhea -- Adult, DI for Diarrhea and Traveler's Diarrhea -- Child, DI for Nausea -- Adult, DI for Nausea -- Child Print Language Print Language: Pashto Discharge ED Provider: Adrián Quiroz General Adult HPI General Chief complaint: Nausea/Vomiting/Diarrhea Stated complaint: vomiting,weakness Time Seen by Provider: 03/29/25 16:40 Mode of Arrival: Ambulatory Source of Information: Patient Description of Symptoms (Recalled from ER Triage Doc. by RN): c/o not eating or drinking for 3 days, vomiting and diarrhea. lower back pain, no burning with urination. PT reports feeling really weak. History of Present Illness HPI narrative: Please note that above description of symptoms, in this electronic medical record under categorization of recalled from ER triage doctor by RN are reflective of an initial nursing assessment, however, is not reflective of my full history and physical exam that was personally taken and clarified. Consequentially, this preceding description of symptoms, which may include the patient's categorized chief complaint in the EMR, do not reflect my personal clinical impression, and the ultimate description of history of present illness and patient stated complaints should be deferred to this section of the note. Unless stated otherwise or congruent with this section of the note, additional signs, symptoms, or incongruence should be interpreted as inaccurate with my clinical impression. Related Data Home Medications ?Medication ?Instructions ?Recorded ?Confirmed dorzolamide 22.3 mg-timolol 6.8 1 drp Eye-Both BID 01/30/24 03//25 mg/mL eye drops Previous Rx's ?Medication ?Instructions ?Recorded trazodone 50 mg tablet See Rx Instructions .Route 07/01/24 .COMPLEX #90 tabs albuterol 90 mcg-budesonide 80 2 inh inhalation 6XD PRN shortness 11/19/ mcg/actuation HFA aerosol inhaler of breath or wheezing #10.7 grams (Airsupra) ipratropium 0.5 mg-albuterol 3 mg 3 ml inhalation Q4-6H PRN 11/19/24 (2.5 mg base)/3 mL nebulization shortness of breath or wheezing soln #90 mL epinephrine 0.3 mg/0.3 mL 0.3 mg (0.3 mL) IM Q5-15M PRN 12/25/24 injection, auto-injector (EpiPen anaphylaxis #2 ea 2-Santos) losartan 25 mg tablet 25 mg PO DAILY #90 tabs 01/10/25 losartan 50 mg tablet 50 mg PO DAILY 90 days #90 tabs 01/10/25 fluticasone fur. 100 mcg-umeclid 1 inh inhalation DAILY 90 days #3 03/24/25 62.5 mcg-vilant 25 mcg ea inhalat.powder (Trelegy Ellipta) levofloxacin 750 mg tablet 750 mg PO DAILY 1 day #1 tab 03/29/25 levofloxacin 750 mg tablet 750 mg PO DAILY 5 days #5 tabs 03/29/25 ondansetron 4 mg disintegrating 4 mg PO Q6H PRN nausea and 03/29/25 tablet vomiting #10 tabs Allergies Allergy/AdvReac Type Severity Reaction Status Date / Time insect Allergy Severe Anaphylaxis Uncoded 12/25/24 09:45 [facility] Disclaimer: The information contained in this section may have been updated after the patient was seen, as this information can be updated by other users. Medical History Cataract Glaucoma Hypertension PTSD (post-traumatic stress disorder) Surgical History History of amputation of toe History of ankle surgery History of cardiac cath History of colonoscopy with polypectomy History of knee surgery Hx laparoscopic cholecystectomy Family History Father Cancer Other No significant family history Social History (Updated 12/25/24 @ 09:51 by Mary Melissa CMA) Smoking Status: Former smoker tobacco type: smokeless tobacco smoking status stop date: 2006 how long ago did patient quit smokin second hand exposure: Yes (daily) alcohol intake: current alcohol intake frequency: a few times a month substance use type: denies use current occupational status: retired Travel in the last 8 weeks?: None household members: spouse housing: house Have you lived/traveled outside US in past 30 days?: No Contact w/someone who lives/traveled outside US past 30 days?: No Exposure to someone with infectious disease in past 14 days?: No Do you have a fever (greater than 100.4 F or 38 C)?: No Have you tested positive for COVID-19?: No Exposed to someone with COVID-19 in past 14 days?: No Do you have a sore throat?: No Do you have a cough?: No Do you have any weakness?: No Do you have any diarrhea?: No Are you experiencing any unusual bleeding?: No Do you have any muscle aches/pain?: No Do you have any abdominal pain?: No Are you experiencing loss of taste or smell?: No Other Medical History Have you received the Flu Vaccine for this season: No Have you received the Pneumonia Vaccine: No ROS Obtained: Yes All systems reviewed & no additional complaints except as documented Physical Exam General General appearance: alert and in no apparent distress Head Head exam: atraumatic and normocephalic Eye Eye exam: Present normal appearance, PERRL and EOMI ENT ENT exam: Present mucous membranes dry Neck Neck exam: Present normal inspection, full ROM and trachea midline Respiratory Respiratory exam: Present normal lung sounds bilaterally; Absent respiratory distress, wheezes, stridor, accessory muscle use or prolonged expiratory phase Cardiovascular Cardiovascular exam: Present regular rate, normal rhythm and other (Pulses equal symmetric in upper and lower extremities) Abdominal Exam Abdominal exam: Present soft; Absent distention, tenderness or pulsatile mass Extremities Exam Extremities exam: Absent edema Neurological Exam Neurological exam: Present alert, oriented X3 and CN II-XII intact; Absent motor sensory deficit Skin Skin exam: Present warm and dry; Absent diaphoresis or erythema Medical Decision Making Medical Records Medical records reviewed: Yes I reviewed the patient's medical records. Screening: Per USPSTF and CDC recommendations, given the prevalence of disease in our region, it is our hospital?s policy to screen for HIV and viral Hepatitis for all patients aged 18 and over and those with ongoing risk factors. Ronen Inquiry Pt receiving controlled substance: No Ronen was queried for this patient: No Vital Signs: 03/29/25 16:23 03/29/25 16:59 03/29/25 17:33 Temperature 97.9 F Temperature Source Oral Pulse Rate 78 82 Pulse Rate [Left Radial] 110 H Respiratory Rate 20 Blood Pressure 81/57 L 116/83 Blood Pressure [Right Arm] 80/56 L Blood Pressure Mean 66 Blood Pressure Mean [Right Arm] 64 02 Sat by Pulse Oximetry 98 96 97 Oxygen Delivery Method Room Air 03/29/25 18:00 03/29/25 18:30 03/29/25 19:00 Temperature Temperature Source Pulse Rate 92 H 93 H 107 H Pulse Rate [Left Radial] Respiratory Rate Blood Pressure 93/56 L 123/79 127/79 Blood Pressure [Right Arm] Blood Pressure Mean Blood Pressure Mean [Right Arm] 02 Sat by Pulse Oximetry 99 98 95 Oxygen Delivery Method 03/29/25 19:30 Temperature Temperature Source Pulse Rate 107 H Pulse Rate [Left Radial] Respiratory Rate Blood Pressure 83/59 L Blood Pressure [Right Arm] Blood Pressure Mean Blood Pressure Mean [Right Arm] 02 Sat by Pulse Oximetry 96 Oxygen Delivery Method Lab Data Lab Results 03/29/25 16:38: WBC 10.0, RBC 5.90, Hgb 16.4, Hct 53.7 H, MCV 91.0, MCH 27.8, MCHC 30.5 L, RDW 13.1, Plt Count 297, MPV 9.9, Neut % (Auto) 78.5, Lymph % (Auto) 18.0, Hodgeman % (Auto) 2.0, Eos % (Auto) 0.9, Baso % (Auto) 0.3, Neut # (Auto) 7.8, Lymph # (Auto) 1.8, Hodgeman # (Auto) 0.2, Eos # (Auto) 0.1, Baso # (Auto) 0.0, Sodium 138, Potassium 4.0, Chloride 104, Carbon Dioxide 19 L, Anion Gap 19.0 H, BUN 32 H, Creatinine 2.40 H, Estimated Creat Clear 45, Estimated GFR 27 L, Est GFR ( Amer) 33 L, Glucose 136 H, Calcium 10.0, Magnesium 2.2, Total Bilirubin 0.8, AST 35, ALT 24, Alkaline Phosphatase 55, Total Protein 9.1 H D, Albumin 4.4, Globulin 4.7 H, Albumin/Globulin Ratio 0.9 L, Lipase 90, HCV Ab KING w/Rflx PCR Qn Negative, HIV Ag/Ab Combo Qual Negative 03/29/25 17:33: Stl C. cayetanensis PCR Not detected, Stool Rotavirus (PCR) Detected A, Stl Adenov F 40/41 PCR Not detected, Stool Astrovirus (PCR) Not detected, Stool Campylobacter PCR Not detected, Stl C.difficile Tox PCR Not detected, Stool Cryptosporidium PCR Not detected, Stl E.coli Shiga Tox PCR Not detected, Stool E coli O157 PCR Not detected, Stl Enterotoxigenic E PCR Not detected, Stool EPEC (PCR) Detected A, Stool EAEC (PCR) Not detected, Stl E. histolytica PCR Not detected, Stool Giardia Lamblia PCR Not detected, Stool Salmonella PCR Not detected, Stool Sapovirus (PCR) Not detected, Stl P. shigelloides PCR Not detected, Stl Shigella/EIEC PCR Not detected, St Y.enterocolitica PCR Not detected, Stool Vibrio (PCR) Not detected, Stl Vibrio cholerae PCR Not detected, Stl Norovirus GI/GII PCR Not detected 03/29/25 16:38 03/29/25 16:38 Orders (Tests/Meds): ED MEDICATIONS Generic Name Dose Route Start Last Admin Trade Name Freq PRN Reason Stop Dose Admin Sodium Chloride 10 ml 03/29/25 16:34 Sodium Chloride 0.9% 10ml Flush Syringe IV 04/28/25 16:33 NEEDED PRN Maintain IV Site Discontinued Medications Generic Name Dose Route Start Last Admin Trade Name Freq PRN Reason Stop Dose Admin Sodium Chloride 1,000 mls @ 999 mls/hr 03/29/25 16:45 03/29/25 16:44 Sod Chlor 0.9% 1000ml Bag IV 03/29/25 17:45 999 mls/hr .Q1H1M GARRICK Administration Lactated Ringer's 1,000 mls @ 999 mls/hr 03/29/25 17:34 03/29/25 17:44 Lactated Ringer's 1000 Ml Bag IV 03/29/25 18:34 999 mls/hr .Q1H1M ONE Administration Levofloxacin 750 mg 03/29/25 19:51 Levofloxacin 750 Mg Tablet PO 03/29/25 19:52 ONCE ONE Ondansetron HCl 4 mg 03/29/25 16:34 03/29/25 16:45 Ondansetron 4mg/2ml Vial IV 03/29/25 16:35 4 mg ONCE ONE Administration ORDERS Category Date Time Status Complete Blood Count Auto Diff Stat Lab 03/29/25 16:38 Completed Comprehensive Metabolic Panel Stat Lab 03/29/25 16:38 Completed Diarrhea 23 Panel, PCR Stat Lab 03/29/25 17:33 Completed HIV Combo Stat Lab 03/29/25 16:38 Completed Hepatitis C Ab Qual. W/ RFX Stat Lab 03/29/25 16:38 Completed Lipase Stat Lab 03/29/25 16:38 Completed Magnesium Stat Lab 03/29/25 16:38 Completed Medical Decision Narrative: 69-year-old male presenting with generalized weakness. He states has had diarrhea for the last 3 to 4 days and is feeling weak. No syncopal episodes. Has had luigi blood in the stool, but has hemorrhoids and thinks this may be related. Vomiting, nonbloody, nonbilious. No fevers or chills or systemic signs or symptoms. Came in for further evaluation. On arrival, appears clinically unwell. Pale, tachycardic, lips are dry. Abdomen soft, nontender, nondistended. History was obtained via conversation with patient and . On arrival, patient hemodynamically stable, alert, oriented x4, appropriate, GCS 15, moving all extremities spontaneously, pupils equal and reactive to light. Differential includes gastritis, gastroenteritis, diverticulitis, diverticular bleed, pancreatitis, dehydration, DESHAUN, among others. Patient placed on continuous cardiac monitoring and continuous pulse ox with initial blood pressure 80/56, heart rate 110, saturation 98% on room air. Patient was given 2 L IV fluids for symptomatic management and correction of underlying abnormalities. Workup independently interpreted and significant for nonactionable CBC. Hemoglobin 16.4 and hemoconcentrated. Patient's chemistry with metabolic acidosis bicarb low at 19. Anion gap of 19 as well. BUN 32 and creatinine 2.4 from normal baseline kidney function. Magnesium normal. Lipase negative. Stool panel was sent. Positive for rotavirus as well as EPEC. Abdominal CT was considered, but not deemed necessary. Patient looks and feels much better on reevaluation. Color is better, mucous membranes are moist. Blood pressure and heart rate have both improved 126/86 blood pressure and heart rate in the 80s. Given patient presentation, workup, history, this most likely represents enteropathogenic E. coli. He was given first dose of Levaquin and rest of Levaquin was sent to pharmacy of choice.. States that he wants to get his meds filled at clinic pharmacy, but is close tomorrow. 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 I feel this is appropriate. Because patient at baseline without signs or symptoms of clinical decompensation, deemed appropriate for discharge. Results were relayed to patient who voiced understanding and were agreeable to outpatient management and follow up. I discussed my clinical impression with patient and answered all questions. At this time, the evidence for any other entities in the differential is insufficient to warrant any further testing or ED observation. This was explained as well. Advisory was given that persistent or worsening symptoms require further evaluation. I confirmed the understanding of this discussion. Javascript Front End Developer disclaimer Much of this encounter note is an electronic charge out clerk spoken language to printed text. Electronic charge out clerk of the spoken language may permit errors. Although I have reviewed the note, some errors may still exist. Critical Care Critical Care Time Critical Care Time: No
[2025-03-29 17:22] LABS: Lipase 90 U/L (23-300); Magnesium 2.2 mg/dl (1.6-2.3)
[2025-03-29 17:42] LABS: HIV Combo NEGATIVE (Negative)
[2025-03-29] MEDS: LACTATED RINGERS 1000ML 1,000 ML 999 ML IV (17:44)
[2025-03-29 17:46] LABS: Adenovirus F 40/41, stool Not Detected (NotDetected); Astrovirus Not Detected (NotDetected); Campylobacter Not Detected (NotDetected); Clostridium Difficile A/B, PCR Not Detected (NotDetected); Cryptosporidium Not Detected (NotDetected); Cyclospora Cayetanesis Not Detected (NotDetected); Entamoeba histolytica Not Detected (NotDetected); Enteroaggregative E coli Not Detected (NotDetected); Enterotoxigenic E coli Not Detected (NotDetected); Giardia lamblia Not Detected (NotDetected); Norovirus Not Detected (NotDetected); Plesimonas Shigalloides, PCR Not Detected (NotDetected); Salmonella, PCR Not Detected (NotDetected); Sapovirus Not Detected (NotDetected); Shiga-like toxin E coli Not Detected (NotDetected); Shigella Enterovasive E coli Not Detected (NotDetected); Vibrio Cholerae Not Detected (NotDetected); Vibrio, PCR Not Detected (NotDetected); Yersinia Entercolitica, PCR Not Detected (NotDetected)
[2025-03-29 17:50] LABS: Hepatitis C Ab Qual. W/ RFX NEGATIVE (Negative)
[2025-03-29 19:33] LABS: Rotavirus A Detected (NotDetected)
[2025-03-29 19:36] LABS: Enteropathogenic E coli Detected (NotDetected)
--- NOTE | 2025-03-29 19:37 | PC.NURSE ---
Notified Dr. Quiroz of critical diarrhea panel enteropathogenic ecoli
[2025-03-29] MEDS: levoFLOXacin 750 MG TABLET PO (20:06)
== END 2025-03-29 20:21 | disposition home or self-care (01) ==
PROVIDERS: Emergency Provider Emergency Medicine; PCP Nurse Practitioner Family
DX: A08.0 Rotaviral enteritis (principal); A04.0 Enteropathogenic Escherichia coli infection; R11.2 Nausea with vomiting, unspecified; R19.7 Diarrhea, unspecified; M54.50 Low back pain, unspecified; I10 Essential (primary) hypertension; Z87.891 Personal history of nicotine dependence
CPT/HCPCS: 80053; 83690; 83735; 85025; 86803; 87389; 87507; 96361; 96374; 99284; J2405; J7030; J7120

== ENCOUNTER 2025-03-31 10:44 | Outpatient (CLI) | payer MEDICARE, OTHER, SELFPAY ==
--- OUTSIDE RECORDS SUMMARY | 2003-11-06 10:00 | XMS_ITS | Continuity of Care Document ---
Author Name [facility] Organization [facility] Care Team Providers Care Heel Seat Laster Name Role Phone [facility] Unavailable Unavailable Problems Combined list of problems from Department of [facility] and Veterans Affairs facilities. It does not include entries that were removed or entered in error. Problem Status Onset Date Problem Type Date of Resolution Comments Source Elevated Prostate Specific Antigen (PSA) (ICD-9-CM 790.93) Active Condition [facility] Gastroesophageal reflux disease Active Condition [facility] Osteoarthritis * (ICD-9-CM 715.90) Active Condition [facility] Tobacco dependence syndrome Active Condition [facility] Immunizations Combined list of available immunizations from the Department of [facility] and Veterans Affairs facilities. 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 Social History Type Response Date Comment Sourc e Tobacco smoking status WYIS HF V9 CURRENT SMOKER 11/06/2003 pt smokes 10/03/ [facility]
[2025-03-31 15:48] LABS: Anion Gap 18.7 mEq/L (5-15); Blood Urea Nitrogen 23 mg/dl (9-20); Calcium 9.7 mg/dl (8.4-10.2); Carbon Dioxide 20 mmol/L (22.0-30.0); Chloride 103 mmol/L (98-107); Estimated Glomerular Filt Rate 51 ml/min (>60); GFR (African American) 61 ML/MIN (>60); Glucose 94 mg/dl (74-100); Potassium 4.7 mmoL/L (3.5-5.1); Sodium 137 mmol/L (136-145)
--- OUTSIDE RECORDS SUMMARY | 2025-04-02 10:50 | XMS_ITS | Continuity of Care Document ---
Author Organization [facility] Address [address] [place] [address] [place] [address] Care Team Providers Care Agricultural Specialist Name Role Phone OLEGARIO MCDONNELL Primary Care Provider Assessment No assessment recorded. Plan of Treatment Reminders Order Date Submit Date Provider Last Modified By Organization Details Last Modified Time Details Appointments None record ed. Lab None record ed. Referral None record ed. Procedures None record ed. Surgeries None record ed. Imaging XR, knee 025 02/27/20 25 [email or web address] [facility], [address] [place] [address] [place], [address], 15:15:36 Medication Orders None record ed. Patient TargetsNo targets recorded. Patient InstructionsNo instructions recorded. Reason for Referral None Reported. Results Created Date Observation Date Name Description Value Unit Range Abnormal Flag Note LastModifiedBy Organization Detail LastModifiedTime 02/27/20 25 XR, knee No observ ation record ed. DENI [address] [place], [address], 02/26/2025 13:50:33 Result Notes None recorded. Procedures Surgical History Date Name Laterality Status Provider Name and Address Organization Details Recorded Time LASIK completed AB Tasty - L [facility] 01/13/2025 09:57:26 [facility] 09:57:26 Imaging Results None recorded. [...] Time Tobacco Sm[facility] Status [facility] 09:57:22 Do You Have An [...] anxious, or unable to sleep at night)? [id number] Information not available 01/13/2025 Family History Nothing Reported. Medical History Condition Response Vision or Eye Problems Y Arthritis Y Reflux/GERD Y Heart Attack ([place]) Y Back Problems Y Hypertension Y Immunizations Vaccine Type Date Status Note Provider Nam e and Address Organization Details Recorded Time Influenza, high-dose, quadrivalent, PF 10/10/2023 completed Joanne Lovell-Pitakis null, [place] - [facility] [place] 02/26/2025 13:49:56 COVID-19, mRNA, LNP-S, PF, 100 mcg/0.5mL dose or 50 mcg/0.25mL dose 12/30/2020 completed Joanne Lovell-Pitakis null, [place] - [facility] [place] [facility] [place] 02/26/2025 13:49:56 COVID-19, mRNA, LNP-S, PF, 100 mcg/0.5mL dose or 50 mcg/0.25mL dose 01/27/2021 completed Joanne Lovell-Pitakis null, [place] - [facility] [place] [facility] [place] 02/26/2025 13:49:56 Influenza, split virus, quadrivalent, PF 06/11/2018 completed Joanne Lovell-Pitakis null, [place] - [facility] [place] [facility] [place] 02/26/2025 13:49:56 Influenza, split virus, quadrivalent, PF 06/24/2020 completed Joanne Lovell-Pitakis null, [place] - [facility] [place] 02/26/2025 13:49:56 Influenza, split virus, quadrivalent, PF 2021 completed Joanne Lovell-Pitakis null, [place] - [facility] [place] [facility] [place] 02/26/2025 13:49:56 Past Encounters Encounter ID Performer Location Encounter Start Date Encounter Closed Date Diagnosis/Indication Diagnosis SNOMED-CT Code Diagnosis ICD10 Code Diagnosis Note [id number] DO ZAIN MCGEE [address] [address] 02/26/2025 13:36:07 02/26/2025 14:04:57 History of left total knee replacement [id number] Z96.652 Follow-up orthopedic assessment [id number] Z47.89 Health Concerns Section Related Observation LastModified by Organization Detai ls LastModified Time None Recorded Concern Status LastModified by Organization Details LastModified Time None Recorded Payers Encounter Date Sequence Insurance Name Policy Number Policy Yu Covered Member ID Yu Member ID Guarantor Name 02/26/2025 1 [place] Xavier Mooney [id number] Xavier Mooney 02/26/2025 2 FOR LIFE ( - MEDICARE SUPPLEMENT) Xavier Mooney [id number] Xavier Mooney Notes Date Note Type Note [...] for pain. E4AP LIBERTY SAAVEDRA DO [address] [facility],[address], [place], [address], [facility] [place] 02/27/2025 09:25:13
--- OUTSIDE RECORDS SUMMARY | 2025-04-02 10:51 | XMS_ITS | Data Portability ---
[facility] [place] [facility] Address [address] [place] [address] Care Team Providers Care Cardiopulmonary Specialist Name Role Phone OLEGARIO MCDONNELL Primary Care Provider Assessment No assessment recorded. Plan of Treatment Reminders Order Date Submit Date Provider Last Modified By Organization Details Last Modified Time Details Appointments None recorded. Lab None recorded. Referral None recorded. Procedures None recorded. Surgeries None recorded. Imaging XR, knee 2024 025 zoila [facility], [address] [place] [address] [place], [address], 15:15:36 CT, knee, w/o contrast - left knee- ANA protocol for TKA scheduled on 12/31/242024 025 zoila [place] (Centralized Scheduling)[facility] [address] [place], [address], 5 08:23:02 Medication Orders None recorded. Patient TargetsNo targets recorded. Patient InstructionsNo instructions recorded. Reason for Referral None Reported. Results Created Date Observation Date Name Description Value Unit Range Abnormal Flag Note LastModifiedBy Organization Detail LastModifiedTime 12/19/1912/18/2024 CBC W/O DIFF note See Note Order ing Provi collins: Canelo Saavedra DO Not Available [place] [address] [place], [address], 12/18/2024 10:41:14 12/19/19 25 12/18/2024 CBC W/O DIFF white blood cell 11.8 10e3/ uL 4.5-13 .0 normal Not Available [place] [address], [place], [address], 12/18/2024 10:41:14 12/19/19 25 12/18/2024 CBC W/O DIFF red blood cell 5.20 10e6/ uL 4.10-5 .70 normal Not Available [address], [place], [address], 12/18/2024 10:41:14 12/19/19 25 12/18/2024 CBC W/O DIFF hemoglobin 15.3 g/dL 12.0-1 6.9 normal Not Available [place] [address], [place], [address], 12/18/2024 10:41:14 12/19/19 25 12/18/2024 CBC W/O DIFF hematocrit 46.8 % 36.0-4 9.0 normal Not Available [place] [address], [place], [address], 12/18/2024 10:41:14 12/19/19 25 12/18/2024 CBC W/O DIFF mean cell volume 90 fL 78.0-9 8.0 normal Not Available [place] [address], [place], [address], 12/18/2024 10:41:14 12/19/19 25 12/18/2024 CBC W/O DIFF mean cell HGB 29.4 pg 25.0-3 5.0 normal Not Available [place] [address], [place], [address], 12/18/2024 10:41:14 12/19/19 25 12/18/2024 CBC W/O DIFF mean cell HGB concentratio n 32.7 g/dL 31.0-3 6.0 normal Not Available [address], [place], [address], 12/18/2024 10:41:14 12/19/19 25 12/18/2024 CBC W/O DIFF red cell distribution width 13.6 % 11.0-1 5.0 normal Not Available [address], [place], [address], 12/18/2024 10:41:14 12/19/19 25 12/18/2024 CBC W/O DIFF platelet count 278 10e3/ uL 150-40 0 normal Not Available [address], [place], [address], 12/18/2024 10:41:14 12/19/19 25 12/18/2024 CBC W/O DIFF performing lab [facility] R [address] [place] [address] DRIVE [facility] [address] Not Available [address], [place], [address], 12/18/2024 10:41:14 12/19/19 25 12/18/2024 ELECT ROLYT ES PANEL note See Note Order ing Provi collins: Canelo H Quentin DO Not Available [address] , [place], [address], 12/18/2024 10:57:40 12/19/19 25 12/18/2024 ELECT ROLYT ES PANEL sodium 137 mmol/ L 136-14 5 normal Not Available [address], [place], [address], 12/18/2024 10:57:40 12/19/19 25 12/18/2024 ELECT ROLYT ES PANEL potassium 4.4 mmol/ L 3.5-5. 1 normal Not Available [address] [place], [address], 12/18/2024 10:57:40 12/19/19 25 12/18/2024 ELECT ROLYT ES PANEL chloride 103 mmol/ L 98-107 normal Not Available [address] , [place], [address], 12/18/2024 10:57:40 12/19/19 25 12/18/2024 ELECT ROLYT ES PANEL carbon dioxide 29 mmol/ L 24-33 normal Not Available [address] , [place], [address], 12/18/2024 10:57:40 12/19/19 25 12/18/2024 ELECT ROLYT ES PANEL anion gap 9.4 mmol/ L 10-20 low Not Available [address] , [place], [address], 12/18/2024 10:57:40 12/19/19 25 12/18/2024 ELECT ROLYT ES PANEL performing lab see note [facility] R [address] [facility] [address] Not Available [address] , [place], [address], 12/18/2024 10:57:40 12/19/19 25 12/18/2024 BLOOD UREA NITRO GEN note See Note Order ing Provi collins: Canelo Saavedra DO Not Available [address] , [place], [address], 12/18/2024 10:57:41 12/19/19 25 12/18/2024 BLOOD UREA NITRO GEN blood urea nitrogen 15 mg/dL 7-18 normal Not Available [address] , [place], [address], 12/18/2024 10:57:41 12/19/19 25 12/18/2024 BLOOD UREA NITRO GEN performing lab see note ML - [facility] R [address] [facility] [address] Not Available [address] , [place], [address], 12/18/2024 10:57:41 12/19/19 25 12/18/2024 CREAT ININE W/GFR note See Note Order ing Provi collins: Canelo Saavedra DO Not Available [address] , [place], [address], 12/18/2024 10:57:41 12/19/19 25 12/18/2024 CREAT ININE W/GFR creatinine 1.38 mg/dL 0.70-1 .30 high Not Available [address] , [place], [address], 12/18/2024 10:57:41 12/19/19 25 12/18/2024 CREAT ININE W/GFR GFR (estimated) 56 mL/mi n >60 low [IM LEILANI NT]: The 2020 CKD-E PI equat ion is now the recom maunelito d stand marquis. This versi on does [...] care of your patie nt. Not Available [address] , [place], [address], 12/18/2024 10:57:41 12/19/19 25 12/18/2024 CREAT ININE W/GFR performing lab see note - [facility] R [address] [facility] [address] Not Available [address] , [place], [address], 12/18/2024 10:57:41 12/19/19 25 12/18/2024 GLYCO HEMOG LOBIN (HGB A1C) note See Note Order ing Provi collins: Canelo Saavedra DO Not Available [address] , [place], [address], 12/18/2024 11:06:18 12/19/19 25 12/18/2024 GLYCO HEMOG LOBIN (HGB A1C) glycohemoglo bin (HGB A1C) 5.8 % 4.5-6. 2 normal Predi abete s: 5.7 - 6.4 Diabe smita: >6.4 Glyce gia contr ol for adult s with diabe smita: <7.0 Not Available [address] , [place], [address], 12/18/2024 11:06:18 12/19/19 25 12/18/2024 GLYCO HEMOG LOBIN (HGB A1C) performing lab see note ML - [facility] [address] [place] [address] Not Available [address] , [place], [address], 12/18/2024 11:06:18 12/19/19 25 12/18/2024 FRUCT OSAMI NE note See Note Order ing Provi collins: Canelo Saavedra DO Not Available [address] , [place], [address], 12/19/2024 16:12:58 12/19/19 25 12/18/2024 FRUCT OSAMI [...] L. Perfo rmed At: CB, [facility] n [address] [facility], [place], [address] Lev shira tatum, PhD, Phone : [phone] Not Available [address] , [place], [address], 12/19/2024 16:12:58 12/19/19 25 12/18/2024 FRUCT OSAMI NE performing lab see note LC2 - LABCO RP CLIEN T# [id number] [address] [place] [address] Not Available [address] [place], [address], 12/19/2024 16:12:58 01/01/20 25 12/31/2024 GLUCO SE POINT OF CARE note See Note Order ing Provi collins: Canelo Saavedra DO Not Available [address] , [place], [address], 12/31/2024 06:34:31 01/01/20 25 12/31/2024 GLUCO SE POINT OF CARE glucose point of care 121 mg/dL 70-99 high Not Available [address] [place], [address], 12/31/2024 06:34:31 01/01/20 25 12/31/2024 GLUCO SE POINT OF CARE performing lab see note [facility] - [address] [place] [place] [address] Not Available [address] [place], [address], 12/31/2024 06:34:31 12/19/19 XR, knee No observ ation record ed. Not Available 2024 09:17:20 12/19/19 25 12/18/2024 XR, chest , 2 view [facility] Medica l Name: GEORGETTE TEMPLETON BINH [facility] Phys: [place] [address] : 1954 Age: 69 Sex: M Acct: [id number] Loc: G.CT PHONE #: [phone] Exam Date: 2024 Status : REG CLI FAX #: [phone] Rad# [id number] Unit# [id number] Admit Date: 2024 EXAMS: CPT CODE: [id number] CHEST 2 VIEWS 47996 Chest x-ray: 2 views CLINIC AL INDICA [...] KOENIG Consul ting Provid er: JC MELVIN [email or web address] [address] , [place], [address], 12/19/2024 07:42:22 12/19/19 25 12/18/2024 - CT lower ext w/o cont lt [facility] al Medica l Ce Name: GEORGETTE TEMPLETON [address] Phys: Quentin CONNOLLY[place] [address] : 1954 Age: 69 Sex: M Acct: [id number] Loc: G.CT PHONE #: Exam Date: 2024 Status : REG CLI FAX #: [phone] Rad# [id number] Unit# [id number] Admit Date: 2024 EXAMS: CPT CODE: [id number] [place] EXT W/[place] [address] EXAMIN ATION: CT BONE -LEFT KNEE CLINIC [...] e dedica venkata imagin g follow -up. [id number] . IV CONTRA ST: None FINDIN GS: [...] KOENIG Consul ting Provid er: JC MELVIN [email or web address] [address] , [place], [address], 12/19/2024 07:42:22 01/16/20 25 01/03/2025 XR, knee, 1 or 2 view [place] [facility] Medica l Ce Name: GEORGETTE TEMPLETON [address] [employer] Phys: [place] [address] : 1954 Age: 69 Sex: M Acct: [id number] Loc: SIA PHONE #: [phone] Exam Date: 2024 Status : [facility] FAX #: Rad# [id number] Unit# [id number] Admit Date: 2024 EXAMS: CPT CODE: [id number] KNEE AP LATERA L LEFT 93852 EXAM: XR KNEE 3 VIEWS LEFT HISTOR [...] KOENIG Consul ting Provid er: JC MELVIN [email or web address] [address] , [place], [address], 01/15/2025 10:09:58 02/27/20 25 XR, knee No observ ation record ed. DENI Wright [address] , [place], [address], 02/26/2025 13:50:33 Result Notes Documentation Provider Name and Address Organization Details Recorded Time Xr, Chest, 2 View : [facility] Name: WESTLEY MOONEY [address] [place] [address] Phys: [place] [address] : 1955 Age: 69 Sex: M Acct: [id number] Loc: G.CT PHONE #: Exam Date: 12/18/2024 Status: REG CLI FAX #: Rad# [id number] Unit# [id number] Admit Date: 12/18/2024 EXAMS: CPT CODE: [id number] CHEST 2 VIEWS 47755 Chest x-ray: 2 views CLINICAL INDICATION: Preoperative [...] RODERICK GORDON RT(R)(CT) Transcribed Date/Time: 12/18/2024 (1934) Application Technician: Electronic Signature Date/Time: 12/18/2024 (1934) Printed Date/Time: 12/18/2024 (2017) BATCH NO: N/A PAGE 1 Signed Report CC'ed Logic: Ordering Provider: QUENTIN KOENIG Attending Provider: QUENTIN KOENIG Referring Provider: QUENTIN KOENIG Consulting Provider: SATHYA Castro [facility] 12/19/2024 07:42:22 Xr, Knee, 1 Or 2 View : [facility] Ce Name: WESTLEY MOONEY [employer] Phys: [place] [address] : 1955 Age: 69 Sex: M Acct: [id number] Loc: SIA PHONE #: Exam Date: 12/31/2024 Status: [facility] FAX #: Rad# [id number] Unit# [id number] Admit Date: 12/31/2024 EXAMS: CPT CODE: [id number] KNEE AP LATERAL LEFT 94966 EXAM: XR KNEE 3 VIEWS LEFT HISTORY: [...] HILLS; Ann JIMÉNEZ (R) Transcribed Date/Time: 01/03/2025 (5082) Application Technician: Electronic Signature Date/Time: 01/03/2025 (1332) Printed Date/Time: 01/15/2025 (1006) BATCH NO: N/A PAGE 1 Signed Report CC'ed Logic: Ordering Provider: QUENTIN KOENIG Attending Provider: QUENTIN KOENIG Referring Provider: QUENTIN KOENIG Consulting Provider: SATHYA Castro Joaquim null, [place] - [facility] - [place] 01/15/2025 10:09:58 Procedures Surgical History Date Name Laterality Status Provider Name and Address Organization Details Recorded Time LASIK completed Anabel Perkinsis [place] 01/13/2025 09:57:26 Other completed Anabel Perkinsis [place] 01/13/2025 09:57:26 Imaging Results None recorded. Procedure [...] Updated DateTime 12/18/2024 185.42 cm 33.3 kg/m2 293150.43 g Anabel Phan [facility] & [place] 12/18/2024 09:38:34 Date Recorded Body height Provider Name an d Address Organization Details Last Updated DateTime 01/13/2025 185.42 cm Anabel Collins [place] - [facility] & [place] 01/13/2025 09:57:09 Social History Question Answer Notes LastModified by Organizat ion Details LastModified Time Tobacco Smoking Status Former Smoker Anabel Collins null, [place] [facility] - [place] 01/13/2025 09:57:22 Do You Have An Advance [...] anxious, or unable to sleep at night)? [id number] Information not available 01/13/2025 Family History Nothing Reported. Medical History Condition Response Vision or Eye Problems Y Arthritis Y Reflux/GERD Y Heart Attack ([place]) Y Back Problems Y Hypertension Y Immunizations Vaccine Type Date Status Note Provider Nam e and Address Organization Details Recorded Time Influenza, high-dose, quadrivalent, PF 10/10/2023 completed Joanne Polanco null, [place] [facility] & [place] 02/26/2025 13:49:56 COVID-19, mRNA, LNP-S, PF, 100 mcg/0.5mL dose or 50 mcg/0.25mL dose 12/30/2020 completed Joanne Polanco null, [place] [facility] [place] 02/26/2025 13:49:56 COVID-19, mRNA, LNP-S, PF, 100 mcg/0.5mL dose or 50 mcg/0.25mL dose 01/27/2021 completed Joanne Lovell-Pitakis null, [place] [facility] [place] 02/26/2025 13:49:56 Influenza, split virus, quadrivalent, PF 06/11/2018 completed Joanne Lovell-Pitakis [place] [facility] [place] 02/26/2025 13:49:56 Influenza, split virus, quadrivalent, PF 06/24/2020 completed Joanne Lovell-Pitakis [place] [facility] [place] 02/26/2025 13:49:56 Influenza, split virus, quadrivalent, PF 2021 completed Joanne oLvell-Pitakis null, [place] [facility] [place] 02/26/2025 13:49:56 Past Encounters Encounter ID Performer Location Encounter Start Date Encounter Closed Date Diagnosis/Indication Diagnosis SNOMED-CT Code Diagnosis ICD10 Code Diagnosis Note [id number] CANELO SAAVEDRA DO [place] [address] 9 12/18/2024 08:39:36 12/18/2024 09:52:39 Osteoarthritis of left knee joint 3273295378 53030 M17.12 [id number] CANELO SAAVEDRA DO [place] [id number] 01/13/2025 09:44:15 01/13/2025 10:46:06 History of left total knee replacement 2546146338 331002 Z96.652 Follow-up orthopedic assessment 829185950 Z47.89 [id number] CANELO SAAVEDRA DO [address] [address] 02/26/2025 13:36:07 02/26/2025 14:04:57 History of left total knee replacement [id number] 008798 Z96.652 Follow-up orthopedic assessment 425385994 Z47.89 Health Concerns Section Related Observation LastModified by Organization Detai ls LastModified Time None Recorded Concern Status LastModified by Organization Details LastModified Time None Recorded Advance Directives Directive N: Payers Insurance Date Sequence Insurance Name Policy Number Policy Yu Covered Member ID Yu Member ID Guarantor Name 03/01/2025 2 FOR LIFE ( - MEDICARE SUPPLEMENT) Westley Mooney [id number] Westley Mooney 02/23/2025 1 [place] Westley Mooney [id number] Westley Mooney Notes Date Note Type Note [...] Oct [address] Sheets office in [place] . He had rt knee scope with menisectomy in 1979. He had left knee scope in March [address] Valera in [facility]. He reports constant in both knee but left is worse. Has pain medial and lateral knees- MRI left knee w/o [facility] 5.31.24: Significant deg. changes in the medial compartment associated with a macerated tear involving much of the medial meniscus.left knee x-rays @ [facility] 1..25: There is moderate narrowing of hte medial compartment.right knee x-rays @ [facility] 1..25: Advanced medial compartment joint space narrowing and subchondral sclerosis. There is an osteochondral lesion along the articular surface of medial femoral condyle measuring 8 mm. [id number] CANELO SAAVEDRA, DO [address] [place] [address],[address], [place], [address], [facility] - [place] - [place] 12/23/2024 08:56:53 01/13/2025 text/html Pt is here for 2 week pos op left TKA from 12/31/2024. His incision is intact. No redness or s/s of infection. H.H coming to his him 2-3 days a week. He would like to come here at [facility] OP PT. He continues to wear his VENKATA hose. -E5SF CANELO SAAVEDRA [address] [facility],[address], [place], [address], [facility] - LPS[place]IRA [place] & [place] 01/14/2025 13:17:04 02/26/2025 text/html This is a [...] taking anything for pain. [id number] CANELO QUENTIN, [address], [place], [address], [place] [facility] - [place] 02/27/2025 09:25:13
== END 2025-03-31 23:59 | disposition home or self-care (01) ==
LOC: LAB.DROPOF 04-02 10:45
PROVIDERS: PCP Nurse Practitioner Family; Visit Provider Nurse Practitioner Family
DX: Z09 Encounter for follow-up examination after completed treatment for conditions other than malignant neoplasm (principal); N17.9 Acute kidney failure, unspecified; A08.0 Rotaviral enteritis
CPT/HCPCS: 80048

== ENCOUNTER 2025-04-09 14:20 | Outpatient (CLI) | payer MEDICARE, OTHER, SELFPAY ==
--- OUTSIDE RECORDS SUMMARY | 2003-11-06 10:00 | XMS_ITS | Continuity of Care Document ---
Author Name [facility] Organization [facility] Care Team Providers Care Midlevel Provider Name Role Phone [facility] Unavailable Unavailable Problems Combined list of problems from Department of [facility] and Veterans Affairs facilities. It does not include entries that were removed or entered in error. Problem Status Onset Date Problem Type Date of Resolution Comments Source Elevated Prostate Specific Antigen (PSA) (ICD-9-CM 790.93) Active Condition [facility] Gastroesophageal reflux disease Active Condition [facility] Osteoarthritis * (ICD-9-CM 715.90) Active Condition [place] [facility] Tobacco dependence syndrome Active Condition [facility] Immunizations Combined list of available immunizations from the Department of [facility] and [facility] Affairs facilities. 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 Social History Type Response Date Comment Sourc e Tobacco smoking status DCIS HF V9 CURRENT SMOKER 11/06/2003 pt smokes 10/03/ [facility]
[2025-04-09 14:14] LABS: Hematocrit 43.6 % (42.0-52.0); Hemoglobin 13.4 g/dL (14.1-18.0); Immature Granulocytes % 0.6 %; Mean Corpuscular HGB Conc 30.7 g/dL (31.8-35.4); Mean Corpuscular Hemoglobin 27.5 pg (27.0-31.2); Mean Corpuscular Volume 89.3 fl (80-94); Nucleated Red Blood Cells % 0 %; Platelet Count 304 K/mm3 (142-424); Red Blood Count 4.88 M/mm3 (4.60-6.20); Red Cell Distribution Width-SD 42.4 fL; White Blood Count 10.1 K/mm3 (4.8-10.8)
[2025-04-09 14:38] LABS: Albumin Level 3.6 g/dl (3.5-5.0); Chloride 100 mmol/L (98-107); Potassium 3.8 mmoL/L (3.5-5.1); Sodium 139 mmol/L (136-145)
[2025-04-09 14:40] LABS: Blood Urea Nitrogen 8 mg/dl (9-20); Creatinine,Serum 1.00 mg/dl (0.66-1.25); Estimated Glomerular Filt Rate 75 ml/min (>60); GFR (African American) 90 ML/MIN (>60)
[2025-04-09 14:41] LABS: Alanine Aminotransferase 17 U/L (12-78); Albumin/Globulin Ratio 1.2 (1.1-1.8); Alkaline Phosphatase 56 U/L (38-126); Anion Gap 12.8 mEq/L (5-15); Aspartate Amino Transferase 19 U/L (17-59); Bilirubin,Total 0.4 mg/dl (0.2-1.3); Calcium 8.7 mg/dl (8.4-10.2); Carbon Dioxide 30 mmol/L (22.0-30.0); Globulin 3.0 g/dL (1.3-3.2); Glucose 83 mg/dl (74-100); Total Protein,Serum 6.6 g/dl (6.3-8.2)
== END 2025-04-09 23:59 | disposition home or self-care (01) ==
LOC: LAB.DROPOF 14:20
PROVIDERS: PCP Nurse Practitioner Family; Visit Provider Nurse Practitioner Family
DX: N17.9 Acute kidney failure, unspecified (principal)
CPT/HCPCS: 36415; 80053; 85025

== ENCOUNTER 2025-08-07 10:50 | Outpatient (CLI) | payer MEDICARE, OTHER, SELFPAY ==
[2025-08-07 13:37] LABS: Coronavirus 19, PCR Not Detected (NotDetected); Influenza A, PCR Not Detected (NotDetected); Influenza B, PCR Not Detected (NotDetected)
--- OUTSIDE RECORDS SUMMARY | 2025-08-07 19:57 | XMS_ITS | Clinical Summary ---
Author Organization [facility] Address [address] [place] [address] Phone Care Team Providers Care Corporate Risk Analyst Name Role Phone Zully WARNER, Franck Lucero Unavailable [phone] NO, PCP Unavailable Unavailable Reason for Visit and Chief Complaint The Chief Complaint is: left foot pain Problems Includes: Problems addressed during this encounter and other active Problems All Visits Onset Date Resolved Date Provider Condition S tatus Soft Tissue Pain Foot Left 04/27/2016 Franck Andrea DPM Active Last Documented On 8:38AM ; [facility], [facility] Plan of Treatment This patient seems to be better. We did discuss additional treatment options. We did discuss the potential for another steroid injection. He is in agreement. PROCEDURE: After obtaining informed consent regarding the risks, course and alternatives of a corticosteroid injection, an injection of 1 cc of dexamethasone, 1 cc of Kenalog and 1 cc of Lidocaine plain was injected into the left plantar medial calcaneal tuberosity in the area of the plantar fascia insertion and fanned about the entire area of insertion of the plantar fascia on the inferior aspect of the heel. The patient was noted to have tolerated the injection well. The patient was observed five minutes post injection and was not noted to have any complications. We did renew an order for diclofenac 50 mg twice a day. We did discuss the risks, course and alternatives to that medication. He will continue ogup-rmq-tsdqaex inserts. I would expect this second injection to resolve his problem. If it does not, he will contact me and we will reevaluate him. - Last Documented On 05/30/2016 11:59AM ; [facility], [facility] Instructions to patient Instructions for patient to see pcp for high BP Last Documented On 6 12:50PM ; [facility], [facility] Intervention and counseling on cessation of tobacco use Last Documented On 6 12:49PM ; [facility] Education and Decision Aids were provided during visit for: Health seminar on smoking ce ssation Last Documented On 6 12:50PM ; [facility] Assessments Includes: Assessments from this encounter Findings Plantar fasciitis, left. - Last Documented On 05/30/2016 11:59AM ; [facility] Equinus deformity - Last Documented On 05/30/2016 11:59AM ; [facility] Instructions Includes: Instructions from this encounter Instructions to patient Instructions for patient to see pcp for high BP Last Documented On 6 12:50PM ; [facility] Intervention and counseling on cessation of tobacco use Last Documented On 12:49PM ; [facility] Education and Decision Aids were provided during visit for: Health seminar on smoking ce ssation Last Documented On 6 12:50PM ; [facility] Medical Equipment - Implanted Devices Includes: Current Devices No Medical Equipment Recorded Medications Includes: Medications discussed during this encounter and other current Medications New / Renewed during this visit Franck Andrea DPM on 05/27/2016 Diclofenac Potassium 50 MG Tablet Provider: Franck Andrea DPM 30 day supply: 60 tablet, 0 refills Diagnosis: twice a day with food Pharmacy: [facility] [address] [place], [id number] - Last Documented On 6 1:26PM By Maritza Gomes ; [facility] Current Medications (continue as prescribed) Pantoprazole Sodium 20 MG Tablet, enteric coated 04/27 Provider: Diagnosis: Last Documented On 6 8:38AM By [facility] Past Medications on file Diclofenac Potassium 50 MG Tablet 04/27/2016 - 05/27/2016 Provider: Franck Tobin PM Diagnosis: twice a day Last Documented On 6 9:13AM By Maritza Gomes ; [facility] Medications Administered Includes: Administered Medications from this encounter No Administered Medications Recorded Vital Signs Includes: Vital Signs from this encounter Vital Name 05/27/2016 12:53P Blood Pressure Sitting (mmHg) 161/83 Pulse Rate-Sitting (bpm) 82 Height (in) 72 Weight (lb) 215 Body Mass Index (kg/m2) 29.2 Body Surface Area (m2) 2.2 Note: alb Last Documented: On 05/27/2016 12:54P M ; [facility] Results Includes: Results discussed during this encounter No Results Recorded For Specified Dates History of Present Illness Includes: History of Present Illness from this encounter KIM Mooney is a 60 year old male. - Medication list reviewed with patient. This is a well-developed, well-nourished 60-year-old male who is seen today for reevaluation of left heel pain. When I last saw him we gave him a steroid injection. We placed him on diclofenac. He was advised to wear a power step-type insert. He tells me he is at least 70% improved. He has some post-static dyskinesia symptoms Social History Description Last Updated Alcohol use 04/27/2016 Last Documented On 6 12:49PM ; [facility] Caffeine use 04/27/2016 Last Documented On 6 12:49PM ; [facility] Current smoker 04/27/2016 Last Documented On 6 12:49PM ; [facility] Exercising regularly 04/27/2016 Last Documented On 6 12:49PM ; [facility] No recent change in diet 04/27/2016 Last Documented On 6 12:49PM ; [facility] Not using drugs 04/27/2016 Last Documented On 6 12:49PM ; [facility] Tobacco use 04/27/2016 Last Documented On 6 12:49PM ; [facility] Smoking status : Current everyday smoker smokeless tobacco 04/27/2016 Last Documented On 6 12:49PM ; [facility] Procedures and Surgical History Includes: Procedures from this encounter Procedures Code Diagnosis Performing Provider Service L ocation Service Date education and instructions Last Documented On 6 12:49PM ; [facility] intervention and counseling on cessation of toba tobacco 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 use 4000F Last Documented On 6 12:49PM ; [facility], [facility] Clinical summary provided to patient Last Documented On 6 12:49PM ; [facility], [facility] Medical History Includes: Medical History addressed during this encounter Description Last Updated ankle surgery ~left and righ t knee surgery ~toe surgery ~heartburn ~acid reflux 04/27/2016 Last Documented On 6 12:49PM ; [facility], [facility] Arthritic joint problems 04/27/2016 Last Documented On 6 12:49PM ; [facility], [facility] History of acute myocardial infarction 0 04/27/2016 Last Documented On 6 12:49PM ; [facility], [facility] History of depression 04/27/2016 Last Documented On 6 12:49PM ; [facility], [facility] Family History Includes: Family History addressed during this encounter Description Last Updated Maternal history of family history of ca ncer /paternal history as well 05/30/2016 Last Documented On 6 11:59AM ; [facility], [facility] Review of Systems Includes: Review of Systems from this encounter Systemic: Not feeling tired (fatigue), no recent weight loss, and no recent weight gain. No edema. Head: No headache and no sinus pain. Eyes: Vision problems glasses/contacts. No vision problems and no glaucomatous visual field defect. Otolaryngeal: No hearing loss and no tinnitus. No nasal symptoms. Cardiovascular: No chest pain or discomfort and no palpitations. Pulmonary: No daytime asthma symptoms, no cough, and no chronic cough. Wheezing. Gastrointestinal: No heartburn and no abdominal pain. Endocrine: No hot flashes and no muscle weakness. Hematologic: No easy bleeding and no tendency for easy bruising. Musculoskeletal: Lower back pain. No soft tissue swelling. Pain localized to one or more joints. Neurological: No dizziness, no convulsions, and no numbness. Psychological: No anxiety, no emotional lability, no depression, and no insomnia. Not crying for no reason. Skin: No dry skin and no rash. Ulcer(s). Allergic and Immunologic: Complaint of seasonal allergic reaction. Mental Status Includes: Mental Status from this encounter Description No anxiety Functional Status Includes: Functional Status from this encounter No Functional Status Recorded Physical Exam Includes: Physical Exam from this encounter Allergies Includes: Active Allergies No Known Allergies Encounters Encounter Provider Location Date Check-In Time Check- Out Time Diagnosis Follow Up Franck Andrea DPM [facility] 6 12:46PM 1:32PM Insurance Includes: Active Insurance Policies Plan Name Member ID Group # Subscriber Relationship Effect arturo Dates 1 - [facility] [id number] Xavier Mooney Self 10/02/2015 - Unknown Clinical Notes Includes: Clinical Notes from this encounter No Clinical Notes Recorded
--- OUTSIDE RECORDS SUMMARY | 2025-08-07 19:58 | XMS_ITS ---
Author Organization [facility] , [facility] Address [address] [place] [address] Phone Care Team Providers Care Junior Net Developer Name Role Phone Zully WARNER, Franck Lucero Unavailable [phone] NO, PCP Unavailable Unavailable Problems Includes: Active, inactive, and resolved Problems All Visits Onset Date Resolved Date Provider Condition S tatus Soft Tissue Pain Foot Left 04/27/2016 Franck Andrea DPM Active Last Documented On 6 8:38AM ; [facility] Plan of Treatment Instructions to patient Instructions for patient to see pcp for high BP Last Documented On 6 12:50PM ; [facility] Intervention and counseling on cessation of tobacco use Last Documented On 6 12:49PM ; [facility] Instructions for patient to see pcp for BP Last Documented On 6 8:47AM ; [facility] Intervention and counseling on cessation of tobacco use Last Documented On 6 8:48AM ; [facility] Education and Decision Aids were provided during visit for: Health seminar on smoking ce ssation Last Documented On 6 12:50PM ; [facility] Health seminar on smoking ce ssation Last Documented On 6 8:48AM ; [facility] Assessments Includes: Assessments for all patient encounters No Assessments Recorded Instructions Includes: Instructions for all patient encounters Instructions to patient Instructions for patient to see pcp for high BP Last Documented On 6 12:50PM ; [facility] Intervention and counseling on cessation of tobacco use Last Documented On 6 12:49PM ; [facility] Instructions for patient to see pcp for BP Last Documented On 6 8:47AM ; [facility] Intervention and counseling on cessation of tobacco use Last Documented On 6 8:48AM ; [facility] Education and Decision Aids were provided during visit for: Health seminar on smoking ce ssation Last Documented On 6 12:50PM ; [facility], [facility] Health seminar on smoking ce ssation Last Documented On 6 8:48AM ; [facility], [facility] Medical Equipment - Implanted Devices Includes: Current and historical Devices No Medical Equipment Recorded Medications Includes: Current and historical Medications Current Medications (continue as prescribed) Pantoprazole Sodium 20 MG Tablet, enteric coated 04/27 Provider: Diagnosis: Last Documented On 6 8:38AM By Maritza Gomes ; [facility], [facility] Past Medications on file Diclofenac Potassium 50 MG Tablet 05/27/2016 - 06/26/2016 Provider: Franck LINTON Diagnosis: twice a day with food Last Documented On 6 1:26PM By Maritza Gomes ; [facility], [facility] Diclofenac Potassium 50 MG Tablet 04/27/2016 - 05/27/2016 Provider: Franck LINTON Diagnosis: twice a day Last Documented On 6 9:13AM By Maritza Gomes ; [facility], [facility] Medications Administered Includes: Administered Medications in patient's chart No Administered Medications Recorded Results Includes: Results from 08/07/2024 through 08/07/2025 No Results Recorded For Specified Dates History of Present Illness History of Present Illness not supported for this document type No History of Present Illness Recorded Social History Description Last Updated Alcohol use 04/27/2016 Last Documented On 6 11:07AM ; [facility] Caffeine use 04/27/2016 Last Documented On 6 11:07AM ; [facility], [facility] Current smoker 04/27/2016 Last Documented On 6 11:07AM ; [facility], [facility] Exercising regularly 04/27/2016 Last Documented On 6 11:07AM ; [facility], [facility] No recent change in diet 04/27/2016 Last Documented On 6 11:07AM ; [facility] Not using drugs 04/27/2016 Last Documented On 6 11:07AM ; [facility], [facility] Tobacco use 04/27/2016 Last Documented On 6 11:07AM ; [facility], [facility] Smoking status : Current everyday smoker smokeless tobacco 04/27/2016 Last Documented On 6 11:07AM ; [facility], [facility] Medical History Includes: Medical History in patient's chart Description Last Updated ankle surgery ~left and righ t knee surgery ~toe surgery ~heartburn ~acid reflux 04/27/2016 Last Documented On 6 11:07AM ; [facility], [facility] Arthritic joint problems 04/27/2016 Last Documented On 6 11:07AM ; [facility], [facility] History of acute myocardial infarction 0 04/27/2016 Last Documented On 6 11:07AM ; [facility], [facility] History of depression 04/27/2016 Last Documented On 6 11:07AM ; [facility], [facility] Family History Includes: Family History in patient's chart Description Last Updated Maternal history of family history of ca ncer /paternal history as well 05/30/2016 Last Documented On 6 11:59AM ; [facility], [facility] Review of Systems Review of Systems not supported for this document type No Review of Systems Recorded Mental Status Description No anxiety Functional Status No Functional Status Recorded Physical Exam Physical Exam not supported for this document type No Physical Exam Recorded Allergies Includes: Active, inactive, and resolved Allergies No Known Allergies Insurance Includes: Active Insurance Policies Plan Name Member ID Group # Subscriber Relationship Effect arturo Dates 1 - [facility] [id number] Xavier Mooney Self 10/02/2015 - Unknown Clinical Notes Includes: Signed Clinical Notes starting from 09/15/2022 No Clinical Notes Recorded
--- OUTSIDE RECORDS SUMMARY | 2025-08-07 19:58 | XMS_ITS | Clinical Summary ---
Author Organization [facility] , [facility] Address [address] [place] [address] Phone Care Team Providers Care Leather Piece Inspector Name Role Phone Zully WARNER, Franck Lucero Unavailable [phone] NO, PCP Unavailable Unavailable Reason for Visit and Chief Complaint The Chief Complaint is: left foot pain Problems Includes: Problems addressed during this encounter and other active Problems Current Visit Onset Date Resolved Date Provider Thomas wright Status Soft Tissue Pain Foot Left 04/27/2016 Franck Andrea DPM Active Last Documented On 6 8:38AM ; [facility] Plan of Treatment We discussed the etiology of plantar fasciitis and heel pain. We dispensed an information sheet with regard to the diagnosis. We reviewed a home exercise program including stretching and icing. I did demonstrate these activities to the patient. We did discuss the potential benefits of aycd-mia-kmcnzsf arch supports and/or ultimately custom orthotics for biomechanical control of the foot. We discussed the avoidance of barefoot activities and non-supportive shoes. We further discussed the potential benefits for anti-inflammatory medications. We discussed in great detail the risks, course and alternatives to anti-inflammatory medications, both gfnf-agr-sctjfsi and prescription medications. We further discussed the possibility of corticosteroid injections as may be indicated, as well as incorporation of formal physical therapy with modalities as may be indicated. PROCEDURE: After obtaining informed consent regarding the [...] noted to have any complications. We did prescribe diclofenac 50 mg #60 one by mouth twice a day we did discuss taking that medication with food. Continue the vimm-qxe-ydldcin insert. I will see him back in 1 month for reevaluation. - Last Documented On 04/27/2016 11:07AM ; [facility] Instructions to patient Instructions for patient to [...] Plantar fasciitis, left. - Last Documented On 04/27/2016 11:07AM ; [facility] Equinus deformity - Last Documented On 04/27/2016 11:07AM ; [facility] Instructions Includes: Instructions [...] Last Documented On 6 8:48AM ; [facility] Medical Equipment - Implanted Devices Includes: Current Devices No Medical Equipment Recorded Medications Includes: Medications discussed during this encounter and other current Medications New / Renewed during this visit Franck Andrea DPM on 04/27/2016 Diclofenac Potassium 50 MG Tablet Provider: Franck Andrea DPM 30 day supply: 60 tablet, 0 refills Diagnosis: twice a day [facility] [address] [place] [address] [place], [id number] - Last Documented On 6 9:13AM By [facility] Current Medications (continue as prescribed) Pantoprazole Sodium 20 MG Tablet, enteric coated 04/27 Provider: Diagnosis: Last Documented On 6 8:38AM By [facility] Past Medications on file Diclofenac Potassium 50 MG Tablet 05/27/2016 - 06/26/2016 Provider: Franck LINTON Diagnosis: twice a day with food Last Documented On 6 1:26PM By Maritza Gomes ; [facility] Medications Administered Includes: Administered Medications from this encounter No Administered Medications Recorded Vital Signs Includes: Vital Signs from this encounter Vital Name 04/27/2016 08:39A Blood Pressure Sitting (mmHg) 162/101 Pulse Rate-Sitting (bpm) 67 Height (in) 72 Weight (lb) 215 Body Mass Index (kg/m2) 29.2 Body Surface Area (m2) 2.2 Note: mjk/alb Last Documented: On 04/27/2016 8:47AM ; [facility], [facility] Results Includes: Results discussed during this encounter No Results Recorded For Specified Dates History of Present Illness Includes: History of Present Illness from this encounter KIM Mooney is a 60 year old male. - Medication list reviewed with patient. - Previous history of gradual onset pain - Sharp pain Symptoms - Stabbing - Pain is constant (100% of the time) Please rate pain on scale of 1 - 10: 10 Medications used for this condition: ibuprofen and tylenol Previous Treatment This patient is here for evaluation of left heel pain. This is been present for a month and maybe a little longer. He has post-static dyskinesia symptoms. He does work at [employer] is on his feet quite a bit. He's try to modify his shoes. He does have an rmvb-fbe-hvddqdd insert. He does not wear it consistently. He points to the plantar aspect of the left heel is the primary source and location of his pain. He has some secondary Achilles insertional pain. He has tried some periodic ibuprofen without much relief of symptoms. Social History Description Last Updated Alcohol use 04/27/2016 Last Documented On 6 11:07AM ; [facility] Caffeine use 04/27/2016 Last Documented On 6 11:07AM ; [facility], [facility] Current smoker 04/27/2016 Last Documented On 6 11:07AM ; [facility], [facility] Exercising regularly 04/27/2016 Last Documented On 6 11:07AM ; [facility], [facility] No recent change in diet 04/27/2016 Last Documented On 6 11:07AM ; [facility], [facility] Not using drugs 04/27/2016 Last Documented On 6 11:07AM ; [facility] Tobacco use 04/27/2016 Last Documented On 6 11:07AM ; [facility], [facility] Smoking status : Current everyday smoker smokeless tobacco 04/27/2016 Last Documented On 6 11:07AM ; [facility], [facility] Procedures and Surgical History Includes: Procedures from this encounter Procedures Code Diagnosis Performing Provider Service L ocation Service Date education and instructions Last Documented On 6 8:48AM ; [facility] intervention and counseling on cessation of toba accountant certified public use 4000F Last Documented On 6 8:48AM ; [facility], [facility] Clinical summary provided to patient Last Documented On 6 8:47AM ; [facility], [facility] Medical History Includes: Medical History addressed during this encounter Description Last Updated ankle surgery ~left and righ t knee surgery ~toe surgery ~heartburn ~acid reflux 04/27/2016 Last Documented On 6 11:07AM ; [facility], [facility] Arthritic joint problems 04/27/2016 Last Documented On 6 11:07AM ; [facility] History of acute myocardial infarction 0 04/27/2016 Last Documented On 6 11:07AM ; [facility], [facility] History of depression 04/27/2016 Last Documented On 6 11:07AM ; [facility], [facility] Family History Includes: Family History addressed during this encounter Description Last Updated Maternal history of family history of ca ncer paternal history as well 04/27/2016 Last Documented On 6 11:07AM ; [facility], [facility] Review of Systems Includes: Review of Systems from this encounter Systemic: Not feeling tired (fatigue), no recent weight loss, and no recent weight gain. No edema. Head: No headache, no sinus pain, and no sinus pain. Eyes: Vision problems glasses/contacts. No vision problems and no glaucomatous visual field defect. Otolaryngeal: No hearing loss, no hearing loss, and no tinnitus. No nasal symptoms. Cardiovascular: No chest pain or discomfort, no chest pain or discomfort, and no palpitations. Pulmonary: No daytime asthma symptoms, no cough, and no chronic cough. Wheezing. Gastrointestinal: No heartburn, no heartburn, and no abdominal pain. Endocrine: No hot [...] Encounters Encounter Provider Location Date Check-In Time Check-Out Time Diagnosis NEW PATIENT Franck Lucero Zully DPGilbert [facility] 04/27/20 16 8:16AM 8:59AM Insurance Includes: Active Insurance Policies Plan Name Member ID Group # Subscriber Relationship Effect arturo Dates 1 - [facility] [id number] Xavier Mooney Self 10/02/2015 - Unknown Clinical Notes Includes: Clinical Notes from this encounter No Clinical Notes Recorded
--- OUTSIDE RECORDS SUMMARY | 2025-08-07 19:58 | XMS_ITS ---
Care Plan - [facility], [facility] Created on: August 07, 2025 Xavier Mooney .0 : 1955 Sex: Male Author Organization [facility] Address [address] [place] [address] Phone Care Team Providers Care Aircraft Cleaning Supervisor Name Role Phone Franck Andrea DPM Unavailable [phone] NO, PCP Unavailable Unavailable
== END 2025-08-07 23:59 | disposition home or self-care (01) ==
LOC: LAB.DROPOF 19:56
PROVIDERS: PCP Nurse Practitioner Family; Visit Provider Internal Medicine
DX: A08.0 Rotaviral enteritis (principal); R06.02 Shortness of breath
CPT/HCPCS: 87631

== ENCOUNTER 2025-09-01 11:46 | Outpatient (CLI) | payer MEDICARE, OTHER, SELFPAY ==
--- NOTE | 2025-09-01 11:50 | XR_ITS ---
FINAL REPORT CLINICAL HISTORY: polyuria, flank pain bilateral COMPARISON: None FINDINGS: A single supine view of the abdomen was obtained. The bowel gas pattern is nonspecific but nonobstructive. There are no renal stones identified. There is an oval radiodensity on the right side that is outside of the renal shadow, favor ingested material. There are left pelvic calcifications, that are likely vascular. Osseous structures are within normal limits. IMPRESSION: No renal stones are identified, with a nonspecific but nonobstructive bowel gas pattern. Reviewed, Interpreted and Dictated by Tabitha Connell MD Transcribed by Nora Connolly Authenticated and [facility]
--- OUTSIDE RECORDS SUMMARY | 2025-09-01 12:01 | XMS_ITS ---
Care [facility] Created on: September 01, 2025 Xavier Mooney .0 : 1955 Sex: Male Author Organization [facility] Address [address] [place] [address] Phone Care Team Providers Care Sailboat Captain Name Role Phone Franck Andrea DPM Unavailable [phone] NO, PCP Unavailable Unavailable
--- OUTSIDE RECORDS SUMMARY | 2025-09-01 12:01 | XMS_ITS | Clinical Summary ---
Author Organization [facility] Address [address] [place] [address] Phone Care Team Providers Care First Line Production Supervisor Name Role Phone Zully WARNER, Franck Lucero Unavailable [phone] NO, PCP Unavailable Unavailable Reason for Visit and Chief Complaint The Chief Complaint is: left foot pain Problems Includes: Problems addressed during this encounter and other active Problems Current Visit Onset Date Resolved Date Provider Thomas wright Status Soft Tissue Pain Foot Left 04/27/2016 Franck Andrea DPM Active Last Documented On 6 8:38AM ; [facility] Plan of Treatment We discussed the etiology of plantar fasciitis and heel pain. We dispensed an information sheet with regard to the diagnosis. We reviewed a home exercise program including stretching and icing. I did demonstrate these activities to the patient. We did discuss the potential benefits of aobn-hon-[id number] arch supports and/or ultimately custom orthotics for biomechanical control of the foot. We discussed the avoidance of barefoot activities and non-supportive shoes. We further discussed the potential benefits for anti-inflammatory medications. We discussed in great detail the risks, course and alternatives to anti-inflammatory medications, both stdm-[id number] and prescription medications. We further discussed the [...] taking that medication with food. Continue the vwax-aip-[id number] insert. I will see him back in [...] twice a day Pharmacy: [facility] [address] [place] [address] [place], [phone] - Last Documented On 6 9:13AM By [...] 6 1:26PM By Maritza Gomes ; [facility] Medications Administered Includes: Administered Medications from this encounter No Administered Medications Recorded Vital Signs Includes: Vital Signs from this encounter Vital Name 04/27/2016 08:39A Blood Pressure Sitting (mmHg) 162/101 Pulse Rate-Sitting (bpm) 67 Height (in) 72 Weight (lb) 215 Body Mass Index (kg/m2) 29.2 Body Surface Area (m2) 2.2 Note: mjk/alb Last Documented: On 04/27/2016 8:47AM ; [facility] Results Includes: Results discussed during this [...] post-static dyskinesia symptoms. He does work at [employer] is on his feet quite a bit. He's try to modify his shoes. He does have an dmcf-mrz-ocqgtef insert. He does not wear it consistently. He points to the plantar aspect of the left heel is the primary source and location of his pain. He has some secondary Achilles insertional pain. He has tried some periodic ibuprofen without much relief of symptoms. Social History Description Last Updated Alcohol use 04/27/2016 Last Documented On 6 11:07AM ; [facility] Caffeine use 04/27/2016 Last Documented On 6 11:07AM ; [facility] Current smoker 04/27/2016 Last Documented On 6 11:07AM ; [facility], [facility] Exercising regularly 04/27/2016 Last Documented On 6 11:07AM ; [facility], [facility] No recent change in diet 04/27/2016 Last Documented On 6 11:07AM ; [facility] Not using drugs 04/27/2016 Last Documented On 6 11:07AM ; [facility] Tobacco use 04/27/2016 Last Documented On 6 11:07AM ; [facility], [facility] Smoking status : Current everyday smoker smokeless tobacco 04/27/2016 Last Documented On 6 11:07AM ; [facility] Procedures and Surgical History Includes: Procedures from this encounter Procedures Code Diagnosis Performing Provider Service L ocation Service Date education and instructions Last Documented On 6 8:48AM ; [facility], [facility] intervention and counseling on cessation of toba assistant account executive use 4000F Last Documented On 6 8:48AM ; [facility] Clinical summary provided to patient Last Documented On 6 8:47AM ; [facility], [facility] Medical History Includes: Medical History addressed during this encounter Description Last Updated ankle surgery ~left and righ t knee surgery ~toe surgery ~heartburn ~acid reflux 04/27/2016 Last Documented On 6 11:07AM ; [facility] Arthritic joint problems 04/27/2016 Last Documented On 6 11:07AM ; [facility] History of acute myocardial infarction 0 04/27/2016 Last Documented On 6 11:07AM ; [facility] History of depression 04/27/2016 Last Documented On 6 11:07AM ; [facility], [facility] Family History Includes: Family History addressed during this encounter Description Last Updated Maternal history of family history of ca ncer paternal history as well 04/27/2016 Last Documented On 6 11:07AM ; [facility], [facility] Review of Systems Includes: Review of [...] Diagnosis NEW PATIENT Franck Lucero Zully DPGilbert [facility] 04/27/20 16 8:16AM 8:59AM Insurance Includes: Active Insurance Policies Plan Name Member ID Group # Subscriber Relationship Effect arturo Dates 1 - [facility] [id number] Xavier Mooney Self 10/02/2015 - Unknown Clinical Notes Includes: Clinical Notes from this encounter No Clinical Notes Recorded
[2025-09-01 12:21] LABS: Hematocrit 42.9 % (42.0-52.0); Hemoglobin 13.7 g/dL (14.1-18.0); Immature Granulocytes % 0.6 %; Mean Corpuscular HGB Conc 31.9 g/dL (31.8-35.4); Mean Corpuscular Hemoglobin 28.6 pg (27.0-31.2); Mean Corpuscular Volume 89.6 fl (80-94); Nucleated Red Blood Cells % 0 %; Platelet Count 317 K/mm3 (142-424); Red Blood Count 4.79 M/mm3 (4.60-6.20); Red Cell Distribution Width-SD 43.2 fL; White Blood Count 15.2 K/mm3 (4.8-10.8)
[2025-09-01 12:46] LABS: Chloride 100 mmol/L (98-107)
[2025-09-01 12:47] LABS: Albumin Level 4.0 g/dl (3.5-5.0); Potassium 4.2 mmoL/L (3.5-5.1); Sodium 138 mmol/L (136-145)
[2025-09-01 12:49] LABS: Alanine Aminotransferase 17 U/L (12-78); Anion Gap 16.2 mEq/L (5-15); Aspartate Amino Transferase 21 U/L (17-59); Blood Urea Nitrogen 15 mg/dl (9-20); Carbon Dioxide 26 mmol/L (22.0-30.0); Creatinine,Serum 1.30 mg/dl (0.66-1.25); Estimated Glomerular Filt Rate 55 ml/min (>60); GFR (African American) 67 ML/MIN (>60)
[2025-09-01 12:50] LABS: Albumin/Globulin Ratio 1.3 (1.1-1.8); Alkaline Phosphatase 48 U/L (38-126); Bilirubin,Total 1.0 mg/dl (0.2-1.3); Calcium 9.0 mg/dl (8.4-10.2); Globulin 3.2 g/dL (1.3-3.2); Glucose 103 mg/dl (74-100); Total Protein,Serum 7.2 g/dl (6.3-8.2)
== END 2025-09-01 23:59 | disposition home or self-care (01) ==
PROVIDERS: PCP Nurse Practitioner Family; Visit Provider Nurse Practitioner Family
DX: R30.0 Dysuria (principal); R35.0 Frequency of micturition; R39.89 Other symptoms and signs involving the genitourinary system; R10.9 Unspecified abdominal pain; M54.9 Dorsalgia, unspecified
CPT/HCPCS: 36415; 74018; 80053; 85025; 87086

== ENCOUNTER 2025-09-02 14:51 | Outpatient (CLI) | payer MEDICARE, OTHER, SELFPAY ==
--- NOTE | 2025-09-02 17:00 | CT_ITS ---
PROCEDURE INFORMATION: Exam: CT Abdomen And Pelvis Without And With Contrast Exam date and time: 09/02/2025 4:53 PM Age: 69 years old Clinical indication: Abdominal pain; Additional info: Leukocytosis, lower abdominal pain TECHNIQUE: Imaging protocol: Computed tomography of the abdomen and pelvis without and with contrast. Radiation optimization: All CT scans at this facility use at least one of these dose optimization techniques: automated exposure control; mA and/or kV adjustment per patient size (includes targeted exams where dose is matched to clinical indication); or iterative reconstruction. Contrast material: ISO 370; Contrast volume: 75 ml; Contrast route: INTRAVENOUS (IV); COMPARISON: CT - ABDPELW CT abdomen pelvis w con 03/24/2019 3:32 AM FINDINGS: Tubes, catheters and devices: None noted. Lungs: Lung bases appear clear. Heart: No significant coronary calcifications. No cardiomegaly. No significant pericardial effusion. Liver: Normal. No mass. Gallbladder and biliary ducts: Normal. No calcified stones. No ductal dilation. Pancreas: Normal. No ductal dilation. Spleen: Normal. No splenomegaly. Adrenal glands: Normal. No mass. Kidneys and ureters: Normal. No hydronephrosis. Stomach and bowel: Diverticulitis of the sigmoid colon. No free peritoneal perforation or drainable abscess. No obstruction. Appendix: No evidence of appendicitis. Intraperitoneal space: Unremarkable. No free air. No significant fluid collection. Retroperitoneal space: No significant retroperitoneal inflammatory changes are noted. Vasculature: Unremarkable. No abdominal aortic aneurysm. Lymph nodes: Unremarkable. No enlarged lymph nodes. Urinary bladder: Unremarkable as visualized. Reproductive: Unremarkable as visualized. Bones/joints: Unremarkable. No acute fracture. Soft tissues: Unremarkable. IMPRESSION: Diverticulitis of the sigmoid colon. No free peritoneal perforation or drainable abscess.
[2025-09-02] MEDS: SODIUM CHLORIDE 0.9% 10ML SYR (RAD ONLY) 10 ML IV (17:05)
[2025-09-02] MEDS: IOPAMIDOL-370 (76%);100ML BOTTLE 75 ML IV (17:05)
[2025-09-02] MEDS: BARIUM SULFATE(READI-CAT2);450ML BOTTLE 450 ML PO (17:06)
== END 2025-09-02 23:59 | disposition home or self-care (01) ==
LOC: RAD 14:51
PROVIDERS: PCP Nurse Practitioner Family; Visit Provider Nurse Practitioner Family
DX: K57.32 Diverticulitis of large intestine without perforation or abscess without bleeding (principal); D72.829 Elevated white blood cell count, unspecified
CPT/HCPCS: 74178; Q9967

== ENCOUNTER 2025-09-04 18:52 | Inpatient (IN) | payer MEDICARE, OTHER, SELFPAY ==
[2025-09-04 18:52] VITALS: BP 148/97; PULSE 110; RESP 20; TEMP 37.2; O2SAT 96; BMI 35.6
--- NOTE | 2025-09-04 19:17 | CT_ITS ---
PROCEDURE INFORMATION: Exam: CT Abdomen And Pelvis With Contrast Exam date and time: 09/04/2025 7:37 PM Age: 69 years old Clinical indication: Other: Recent diverticulitis diagnosis, evaluate for perf TECHNIQUE: Imaging protocol: Computed tomography of the abdomen and pelvis with contrast. Radiation optimization: All CT scans at this facility use at least one of these dose optimization techniques: automated exposure control; mA and/or kV adjustment per patient size (includes targeted exams where dose is matched to clinical indication); or iterative reconstruction. Contrast material: ISOVUE; Contrast volume: 75 ml; Contrast route: IV; COMPARISON: CT ABD/PEL WO/W IV ORAL CON 09/02/2025 4:53 PM FINDINGS: Liver: Normal. No mass. Gallbladder and biliary ducts: Gallbladder is surgically absent. No significant biliary ductal dilation. Pancreas: Normal. No ductal dilation. Spleen: Normal. No splenomegaly. Adrenal glands: Normal. No mass. Kidneys and ureters: Stable simple appearing bilateral renal cortical cysts. No solid renal mass or hydronephrosis. Stomach and bowel: Persistent short-segment wall thickening of the mid sigmoid colon with adjacent amorphous fatty stranding and small volume fluid attenuation. Largest area of fluid attenuation measures approximately 3.6 cm on series 3, image 99. No evidence of bowel obstruction. Appendix: The appendix is visualized and appears normal. Intraperitoneal space: Unremarkable. No free air. No significant fluid collection. Vasculature: Moderate atherosclerotic calcification throughout the aorta and iliac arteries. No evidence of aneurysm or dissection. Lymph nodes: Unremarkable. No enlarged lymph nodes. Urinary bladder: Unremarkable as visualized. Reproductive: Unremarkable as visualized. Bones/joints: Unremarkable. No acute fracture. Soft tissues: Unremarkable. IMPRESSION: Persistent focal wall thickening and inflammatory appearance of the mid sigmoid colon most concerning for acute diverticulitis. Adjacent localized ill-defined fluid attenuation raises concern for diverticular abscess measuring approximately 3.6 cm. No free air or free fluid. Short interval follow-up is indicated to ensure resolution with adequate therapy and exclude malignancy.
--- NOTE | 2025-09-04 19:18 | HMH.EDGENADL ---
Discharge Plan Disposition Patient Disposition: Admitted Clinical Impressions Clinical Impression: Diverticulitis of intestine with abscess Qualifiers: Diverticulitis site: large intestine Diverticulitis bleeding: without bleeding Qualified Code(s): K57.20 - Diverticulitis of large intestine with perforation and abscess without bleeding Discharge ED Provider: Anila Antunez Adult HPI General Chief complaint: Abdominal Pain Stated complaint: abd pain Time Seen by Provider: 09/04/25 19:08 Mode of Arrival: Ambulatory Source of Information: Patient and Spouse Description of Symptoms (Recalled from ER Triage Doc. 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 pt does complain of some nausea and pain when having a BM and urianting at the same time History of Present Illness HPI narrative: This is a 69-year-old male with history of multiple previous knee surgeries and previous cholecystectomy who presents emergency department with worsening abdominal pain, nausea, intermittent dysuria, and right lower quadrant abdominal pain. He also reports having a fever to 102 ?F earlier today. Took 800 mg of Motrin at home 1 hour ago. He states he had a CT scan done earlier this week that showed an infection in the abdomen. He was placed on cefdinir on 09/01 for a UTI which she has been taking throughout the week. He started taking Flagyl yesterday after diagnosis of infection in the abdomen . Denies any blood in the stools or urine. He has a history of chronic diarrhea, which has not changed. Related Data Home Medications ?Medication ?Instructions ?Recorded ?Confirmed dorzolamide 22.3 mg-timolol 6.8 1 drp Eye-Both BID 01/30/24 09/01/25 mg/mL eye drops brimonidine 0.1 % eye drops 1 drp ophthalmic (eye) BID 09/01/25 09/01/25 Previous Rx's ?Medication ?Instructions ?Recorded albuterol 90 mcg-budesonide 80 2 inh inhalation 6XD PRN shortness 11/19/24 mcg/actuation HFA aerosol inhaler of breath or wheezing #10.7 grams (Airsupra) ipratropium 0.5 mg-albuterol 3 mg 3 ml inhalation Q4-6H PRN 11/19/24 (2.5 mg base)/3 mL nebulization shortness of breath or wheezing soln #90 mL epinephrine 0.3 mg/0.3 mL 0.3 mg (0.3 mL) IM Q5-15M PRN 12/25/24 injection, auto-injector (EpiPen anaphylaxis #2 ea 2-Santos) fluticasone fur. 100 mcg-umeclid 1 inh inhalation DAILY 90 days #3 03/24/25 62.5 mcg-vilant 25 mcg ea inhalat.powder (Trelegy Ellipta) eszopiclone 2 mg tablet 2 mg PO HS #30 tabs 06/13/25 losartan 100 mg tablet 100 mg PO DAILY #30 tabs 06/13/25 ciprofloxacin HCl 500 mg tablet 500 mg PO BID 7 days #14 tabs 09/01/25 metronidazole 500 mg tablet 500 mg PO Q8H 10 days #30 tabs 09/03/25 Allergies Allergy/AdvReac Type Severity Reaction Status Date / Time insect Allergy Severe Anaphylaxis Uncoded 09/01/25 11:08 [facility] Disclaimer: The information contained in this section may have been updated after the patient was seen, as this information can be updated by other users. Medical History (Updated 09/04/25 @ 21:44 by Anila Antunez DO) Leukocytosis PTSD (post-traumatic stress disorder) Cataract Glaucoma Hypertension Surgical History Hx laparoscopic cholecystectomy History of colonoscopy with polypectomy History of amputation of toe History of ankle surgery History of knee surgery History of cardiac cath Family History Father Cancer Other No significant family history Social History Smoking Status: Never smoker smoking status stop date: 2006 how long ago did patient quit smokin second hand exposure: Yes (daily) alcohol intake: current alcohol intake frequency: a few times a month substance use type: denies use current occupational status: retired Travel in the last 8 weeks?: None household members: spouse housing: house Have you lived/traveled outside US in past 30 days?: No Contact w/someone who lives/traveled outside US past 30 days?: No Exposure to someone with infectious disease in past 14 days?: No Do you have a fever (greater than 100.4 F or 38 C)?: No Have you tested positive for COVID-19?: No Exposed to someone with COVID-19 in past 14 days?: No Do you have a sore throat?: No Do you have a cough?: No Do you have any weakness?: No Do you have any diarrhea?: No Are you experiencing any unusual bleeding?: No Do you have any muscle aches/pain?: No Do you have any abdominal pain?: No Are you experiencing loss of taste or smell?: No Other Medical History Have you received the Flu Vaccine for this season: No Have you received the Pneumonia Vaccine: No ROS Obtained: Yes All systems reviewed & no additional complaints except as documented Physical Exam General General appearance: alert and in no apparent distress Head Head exam: atraumatic Eye Eye exam: Present normal appearance, PERRL and EOMI ENT ENT exam: Present mucous membranes moist Neck Neck exam: Present normal inspection and full ROM; Absent tenderness Chest Chest inspection: Present symmetric chest wall rise; Absent tenderness Respiratory Respiratory exam: Absent respiratory distress, wheezes or accessory muscle use Cardiovascular Cardiovascular exam: Present regular rate, normal rhythm and tachycardia Abdominal Exam Abdominal exam: Present soft and tenderness (Tenderness palpation in the right lower quadrant and in the suprapubic region); Absent guarding Extremities Exam Extremities exam: Present full ROM; Absent tenderness Neurological Exam Neurological exam: Present alert and oriented X3 Psychiatric Psychiatric exam: Present normal affect Skin Skin exam: Present warm and dry Medical Decision Making Medical Records Screening: Per USPSTF and CDC recommendations, given the prevalence of disease in our region, it is our hospital?s policy to screen for HIV and viral Hepatitis for all patients aged 18 and over and those with ongoing risk factors. Ronen Inquiry Pt receiving controlled substance: No Ronen was queried for this patient: No Vital Signs: 09/04/25 18:52 09/04/25 19:30 09/04/25 20:43 Temperature 98.9 F Temperature Source Oral Pulse Rate 89 82 Pulse Rate [Left Radial] 110 H Respiratory Rate 20 Blood Pressure 139/77 158/83 H Blood Pressure [Right Arm] 148/97 H Blood Pressure Mean 97 108 Blood Pressure Mean [Right Arm] 114 Blood Pressure Source Blood Pressure Position 02 Sat by Pulse Oximetry 96 95 95 Oxygen Delivery Method Room Air 09/04/25 21:09 Temperature 98.1 F Temperature Source Oral Pulse Rate 85 Pulse Rate [Left Radial] Respiratory Rate 16 Blood Pressure 134/84 Blood Pressure [Right Arm] Blood Pressure Mean Blood Pressure Mean [Right Arm] Blood Pressure Source Automatic Cuff Blood Pressure Position Supine 02 Sat by Pulse Oximetry Oxygen Delivery Method Room Air Lab Data Lab Results 09/04/25 19:06: WBC 13.5 H, RBC 4.55 L, Hgb 12.9 L, Hct 40.4 L, MCV 88.8, MCH 28.4, MCHC 31.9, RDW 13.0, Plt Count 346, MPV 10.0, Neut % (Auto) 70.6, Lymph % (Auto) 16.5, [place] % (Auto) 10.0 H, Eos % (Auto) 1.9, Baso % (Auto) 0.6, Neut # (Auto) 9.5 H, Lymph # (Auto) 2.2, [place] # (Auto) 1.4 H, Eos # (Auto) 0.3, Baso # (Auto) 0.1, Sodium 131 L, Potassium 4.0, Chloride 103, Carbon Dioxide 20 L, Anion Gap 12.0, BUN 13, Creatinine 1.30 H, Estimated Creat Clear 96, Estimated GFR 55 L, Est GFR ( Amer) 67, Glucose 113 H, Calcium 9.2, Total Bilirubin 1.2, AST 22, ALT 19, Alkaline Phosphatase 45, Total Protein 8.0, Albumin 4.1, Globulin 3.9 H, Albumin/Globulin Ratio 1.1, Lipase 36 09/04/25 20:34: Urine Color Yellow, Urine Appearance Clear, Urine pH 6.0, Ur Specific [place] <= 1.005, Urine Protein Negative, Urine Glucose (UA) Negative, Urine Ketones Negative, Urine Blood Negative, Urine Nitrate Negative, Urine Bilirubin Negative, Urine Urobilinogen 0.2, Ur Leukocyte Esterase Negative, Urine RBC 5-10, Urine WBC 3-5, Ur Squamous Epith Cells 5-10, Urine Bacteria Trace 09/04/25 19:06 09/04/25 19:06 Orders (Tests/Meds): ED MEDICATIONS Generic Name Dose Route Start Last Admin Trade Name Freq PRN Reason Stop Dose Admin Acetaminophen 650 mg 09/04/25 20:56 Acetaminophen 325mg Tab PO 10/04/25 20:55 Q4HP PRN Fever or Mild Pain (1-3) Hydrocodone Bitart/Acetaminophen 1 tab 09/04/25 20:56 Hydrocodone/Apap 5/325 Mg Tablet PO 10/04/25 20:55 Q4HP PRN Mild to Moderate Pain (1-6) Enoxaparin Sodium 40 mg 09/05/25 09:00 Enoxaparin 40mg/0.4ml Syringe SUBCUT 10/05/25 08:59 DAILY GARRICK Piperacillin Sod/Tazobactam 50 mls @ 100 mls/hr 09/05/25 00:00 Sod 3.375 gm/ Sodium Chloride IV 09/15/25 00:00 Q6H GARRICK Sodium Chloride 1,000 mls @ 100 mls/hr 09/04/25 21:00 Sod Chlor 0.9% 1000ml Bag IV 10/04/25 20:59 .Q10H GARRICK Morphine Sulfate 2 mg 09/04/25 20:56 Morphine 2mg/Ml Syringe IV 10/04/25 20:55 Q4HP PRN Severe Pain (7-10) Ondansetron HCl 4 mg 09/04/25 20:56 Ondansetron 4mg/2ml Vial IV 10/04/25 20:55 Q8HP PRN Nausea Pantoprazole Sodium 40 mg 09/04/25 21:00 Pantoprazole 40mg Tablet PO 10/04/25 20:59 HS GARRICK Sodium Chloride 10 ml 09/04/25 19:37 09/04/25 19:38 Sodium Chloride 0.9% 10ml Syr (Rad Only) IV 10/04/25 19:36 10 ml NEEDED PRN Administration Maintain IV Site Sodium Chloride 10 ml 09/04/25 20:56 Sodium Chloride 0.9% 10ml Flush Syringe IV 10/04/25 20:55 NEEDED PRN Maintain IV Site Discontinued Medications Generic Name Dose Route Start Last Admin Trade Name Freq PRN Reason Stop Dose Admin Sodium Chloride 1,000 mls @ 999 mls/hr 09/04/25 19:14 09/04/25 21:12 Sod Chlor 0.9% 1000ml Bag IV 09/04/25 20:14 Infused .Q1H1M ONE Infusion Piperacillin Sod/Tazobactam 100 mls @ 200 mls/hr 09/04/25 19:25 09/04/25 20:37 Sod 4.5 gm/ Sodium Chloride IV 09/04/25 19:54 Infused ONCE ONE Infusion Sodium Chloride/ Sodium 1,100 mls @ 999 mls/hr 09/04/25 20:06 09/04/25 20:08 Chloride IV 09/04/25 20:20 Not Given .Q1H7M ONE Iopamidol 75 ml 09/04/25 19:37 09/04/25 19:38 Iopamidol-370 (76%);100ml Bottle IV 09/04/25 19:38 75 ml ONCE ONE Administration Morphine Sulfate 4 mg 09/04/25 19:14 09/04/25 19:43 Morphine 4mg/Ml Syringe IV 09/04/25 19:15 4 mg ONCE ONE Administration ORDERS Category Date Time Status CT abdomen pelvis w con Stat Cat Scan 09/04/25 19:17 Completed CBC w/Auto Diff [Complete Blood Count Auto Diff] Stat Lab 09/04/25 19:06 Completed CMP [Comprehensive Metabolic Panel] Stat Lab 09/04/25 19:06 Completed Lactate Venous Stat Lab 09/04/25 19:14 Ordered Lipase Stat Lab 09/04/25 19:06 Completed UA [Urinalysis and Microscopic] Stat Lab 09/04/25 20:34 Completed Blood Culture Stat Micro 09/04/25 19:47 Received Urine Culture Stat Micro 09/04/25 20:34 Received Medical Decision Narrative: In summary, this is a 69y/o male presenting the emergency department for worsening abdominal pain and fever with known recent intra-abdominal infection, currently on cefdinir and Flagyl on an outpatient basis. Differential diagnosis includes but is not limited to: Diverticulitis, constipation, nephrolithiasis, pyelonephritis, cystitis, abscess, perforation On my initial assessment, the patient is hemodynamically stable in no acute distress. Physical exam is notable for right lower quadrant and suprapubic tenderness. I reviewed recent outpatient medical records. The patient was evaluated in the office on 09/01 and was treated for UTI with cefdinir. Urinalysis at that time was negative for nitrite, leukocytes, and blood. The patient had a CT scan of the abdomen and pelvis with and without IV and oral contrast on 09/02/2025 that showed diverticulitis of the sigmoid colon without evidence of perforation, abscess, or phlegmon. Considering worsening of pain now with development of fever in conjunction with tachycardia, the patient does require repeat CT scan of the abdomen to evaluate for abscess. Patient was given 1 L of normal saline, blood cultures obtained, and will be given a dose of Zosyn. Considering the patient is currently afebrile and without tachycardia, he does not require full 30 cc/kg sepsis fluid bolus. Labs personally interpreted which demonstrate mild leukocytosis and mild anemia. Platelets within normal limits. CMP notable for mild hyponatremia with sodium of 131. Creatinine is mildly elevated today at 1.3, however this seems consistent with the patient's baseline. Potassium 4.0. No transaminitis, normal total bilirubin, and normal lipase. Urinalysis shows few white blood cells with trace bacteria. Negative leukocyte esterase and negative nitrite. CT abdomen and pelvis with IV contrast personally interpreted which shows a likely diverticular abscess with evidence of sigmoid colon diverticulitis. I cannot appreciate any large perforation or significant intra-abdominal free fluid. Radiology reads in agreement, noting no evidence of perforation. I had an interactive discussion with hospital medicine regarding admission for diverticular abscess without evidence of perforation. The patient was made n.p.o. in the emergency department and IV fluids/Zosyn initiated. I discussed hospital mission with the patient and he is agreeable to this plan. Patient was ultimately admitted to hospital medicine service Critical Care Critical Care Time Critical Care Time: No
[2025-09-04 19:27] LABS: Alanine Aminotransferase 19 U/L (12-78); Albumin Level 4.1 g/dl (3.5-5.0); Albumin/Globulin Ratio 1.1 (1.1-1.8); Alkaline Phosphatase 45 U/L (38-126); Anion Gap 12.0 mEq/L (5-15); Aspartate Amino Transferase 22 U/L (17-59); Bilirubin,Total 1.2 mg/dl (0.2-1.3); Blood Urea Nitrogen 13 mg/dl (9-20); Calcium 9.2 mg/dl (8.4-10.2); Carbon Dioxide 20 mmol/L (22.0-30.0); Chloride 103 mmol/L (98-107); Creatinine Clearance Estimated 96 mL/min (50-200); Creatinine,Serum 1.30 mg/dl (0.66-1.25); Estimated Glomerular Filt Rate 55 ml/min (>60); GFR (African American) 67 ML/MIN (>60); Globulin 3.9 g/dL (1.3-3.2); Glucose 113 mg/dl (74-100); Lipase 36 U/L (23-300); Potassium 4.0 mmoL/L (3.5-5.1); Sodium 131 mmol/L (136-145); Total Protein,Serum 8.0 g/dl (6.3-8.2)
[2025-09-04 19:30] VITALS: BP 139/77; PULSE 89; O2SAT 95
[2025-09-04 19:34] LABS: Hematocrit 40.4 % (42.0-52.0); Hemoglobin 12.9 g/dL (14.1-18.0); Immature Granulocytes % 0.4 %; Mean Corpuscular HGB Conc 31.9 g/dL (31.8-35.4); Mean Corpuscular Hemoglobin 28.4 pg (27.0-31.2); Mean Corpuscular Volume 88.8 fl (80-94); Nucleated Red Blood Cells % 0 %; Platelet Count 346 K/mm3 (142-424); Red Blood Count 4.55 M/mm3 (4.60-6.20); Red Cell Distribution Width-SD 41.9 fL; White Blood Count 13.5 K/mm3 (4.8-10.8)
[2025-09-04] MEDS: SODIUM CHLORIDE 0.9% 10ML SYR (RAD ONLY) 10 ML IV (19:38)
[2025-09-04] MEDS: IOPAMIDOL-370 (76%);100ML BOTTLE 75 ML IV (19:38)
[2025-09-04] MEDS: 0.9 % SODIUM CHLORIDE 1000ML 1,000 ML 999 ML IV (19:43)
[2025-09-04] MEDS: MORPHINE 4MG/ML SYRINGE 4 MG IV (19:43)
[2025-09-04] MEDS: PIPERACILLIN/TAZO 4.5 GM in 0.9 % SODIUM CHLORIDE 100 ML IV (19:50)
--- NOTE | 2025-09-04 20:37 | PC.NURSE ---
called about admission.
[2025-09-04 20:40] LABS: Microscopic, Urine URINE MICROSCOPIC (MICROSCOPIC)
[2025-09-04 20:43] VITALS: BP 158/83; PULSE 82; O2SAT 95
[2025-09-04 20:45] LABS: Bilirubin,Urine Negative (Negative); Color,Urine YELLOW (Yellow); Glucose,Urine (UA) Negative (Negative); Ketones,Urine Negative (Negative); Leukocyte Esterase,Urine Negative (Negative); PH,Urine 6.0 (5.0-8.5); Protein,Urine Negative (Negative); Specific Gravity, Urine <= 1.005 (1.005-1.030); Urobilinogen,Urine 0.2 EU/dl (0.2)
[2025-09-04 21:06] LABS: Bacteria,Urine Trace /lpf
--- NOTE | 2025-09-04 21:07 | P.HP_ITS ---
<Statement entered by Khai Haines MD - 09/09/25 15:58> Agree with plan of care as outlined by the [facility]. History of Present Illness *Admission Date: 09/04/25 *Reason for visit:: Abdominal pain *History of present illness: This is a 69-year-old male who has a past medical history significant for colon polyp, PTSD, cataract, glaucoma, and hypertension who presents with a chief complaint of nausea, dysuria, fever, and abdominal pain. Due to patient's symptoms, he presents to the emergency room for evaluation. While in the emergency room, CT scan of the abdomen and pelvis revealed persistent focal wall thickening and inflammatory appearance of the mid sigmoid colon most consistent with acute diverticulitis, adjacent localized ill-defined fluid attenuation raises concern for diverticular abscess measuring approximately 3.6 cm, no free air or fluid, short interval follow-up is indicated to ensure resolution with adequate therapy and exclude malignancy. Due to these findings, hospital medicine was consulted for further management. During my evaluation of the patient, patient states he has been having abdominal pain for the last 3 to 4 days. He presented to the emergency room on September [address] scan of the abdomen pelvis which showed acute diverticulitis. Patient was prescribed Flagyl and ciprofloxacin. Despite these medications, patient's abdominal pain worsened. He started to have some emesis and difficulty urinating. Patient complains of right upper quadrant abdominal pain and had a subjective fever of 102-patient states he took some ibuprofen at home. Patient has had prior colonoscopy in the past with polyp removal but this has been sometime before. States over a year ago he was diagnosed with a E. coli in his colon that led to some bleeding he was given antibiotics and discharged from the emergency room. He is currently denying any lightheadedness, dizziness, rigors, shortness of breath, dyspnea, vomiting, chest pain, or headache. Patient states he has chronic loose stool with loose stool experienced after he eats at least 2-3 times a day. Additional pertinent vitals obtained including white blood cell count of 13.5, red blood cell count of 4.55, hemoglobin 12.9, hematocrit of 40.4, sodium 131, carbon oxide 20, creatinine 1.30, GFR 55, and blood glucose 113. [facility] Disclaimer: The information contained in this section may have been updated after the patient was seen, as this information can be updated by other users. Medical History (Updated 09/04/25 @ 21:20 by Valentín Sigala APRN) Leukocytosis PTSD (post-traumatic stress disorder) Cataract Glaucoma Hypertension Surgical History Hx laparoscopic cholecystectomy History of colonoscopy with polypectomy History of amputation of toe History of ankle surgery History of knee surgery History of cardiac cath Family History Father Cancer Other No significant family history Social History Smoking Status: Never smoker smoking status stop date: 2006 how long ago did patient quit smokin second hand exposure: Yes (daily) alcohol intake: current alcohol intake frequency: a few times a month substance use type: denies use current occupational status: retired Travel in the last 8 weeks?: None household members: spouse housing: house Have you lived/traveled outside US in past 30 days?: No Contact w/someone who lives/traveled outside US past 30 days?: No Exposure to someone with infectious disease in past 14 days?: No Do you have a fever (greater than 100.4 F or 38 C)?: No Have you tested positive for COVID-19?: No Exposed to someone with COVID-19 in past 14 days?: No Do you have a sore throat?: No Do you have a cough?: No Do you have any weakness?: No Do you have any diarrhea?: No Are you experiencing any unusual bleeding?: No Do you have any muscle aches/pain?: No Do you have any abdominal pain?: No Are you experiencing loss of taste or smell?: No Other Medical History Have you received the Flu Vaccine for this season: No Have you received the Pneumonia Vaccine: No Review of Systems Review of Systems Review of systems:: pertinent systems reviewed and negative unless documented below Constitutional Constitutional: Reports fever(s) Eyes Eyes: Reports system reviewed and no additional complaints, except as documented ENT Ears, Nose, Mouth, and Throat: Reports system reviewed and no additional complaints, except as documented *Cardiovascular Cardiovascular: Reports system reviewed and no additional complaints, except as documented *Respiratory Respiratory: Reports system reviewed and no additional complaints, except as documented *Gastrointestinal Gastrointestinal: Reports abdominal pain, Reports loose stools and Reports nausea *Genitourinary Genitourinary: Reports difficulty urinating *Musculoskeletal Musculoskeletal: Reports system reviewed and no additional complaints, except as documented Integumentary/Breasts Skin/Breast: Reports system reviewed and no additional complaints, except as documented *Neurologic Neurologic: Reports system reviewed and no additional complaints, except as documented Psychiatric Psychiatric: Reports system reviewed and no additional complaints, except as documented Endocrine Endocrine: Reports system reviewed and no additional complaints, except as documented Hematologic/Lymphatic Hematologic/Lymphatic: Reports system reviewed and no additional complaints, except as documented Allergic/Immunologic Allergic/Immunologic: Reports system reviewed and no additional complaints, except as documented Meds Home Medications and Allergies Home Medications ?Medication ?Instructions ?Recorded ?Confirmed ?Type dorzolamide 22.3 mg-timolol 6.8 1 drp Eye-Both BID 09/01/25 History mg/mL eye drops albuterol 90 mcg-budesonide 80 2 inh inhalation 6XD OR N shortness 11/19/24 09/01/25 Rx mcg/actuation HFA aerosol inhaler of breath or wheezin g #10.7 grams (Airsupra) ipratropium 0.5 mg-albuterol 3 mg 3 ml inhalation Q4-6 H PRN 11/19/24 09/01/25 Rx (2.5 mg base)/3 mL nebulization shortness of breath or wheezing soln #90 mL epinephrine 0.3 mg/0.3 mL 0.3 mg (0.3 mL) IM Q5-15M OR N 12/25/24 09/01/25 Rx injection, auto-injector (EpiPen anaphylaxis #2 ea 2-Santos) fluticasone fur. 100 mcg-umeclid 1 inh inhalation KARRI Y 90 days #3 03/24/25 09/01/25 Rx 62.5 mcg-vilant 25 mcg ea inhalat.powder (Trelegy Ellipta) eszopiclone 2 mg tablet 2 mg PO HS #30 tabs 06/13/25 09/01/25 Rx losartan 100 mg tablet 100 mg PO DAILY #30 tabs 09/2509/01/25 Rx brimonidine 0.1 % eye drops 1 drp ophthalmic (eye) BID 09/01/25 09/01/25 History ciprofloxacin HCl 500 mg tablet 500 mg PO BID 7 days # 14 tabs 09/01/25 09/01/25 Rx metronidazole 500 mg tablet 500 mg PO Q8H 10 days #30 tabs 09/03/25 Rx New Prescriptions to Start Prescriptions: Allergies Allergy/AdvReac Type Severity Reaction Status Date / Time insect Allergy Severe Anaphylaxis Uncoded 09/01/25 11:08 Exam Data for Last 24 hours Vital signs and Labs for Last 24 Hours: Temp Pulse Resp BP Pulse Ox O2 Del Method 98.9 F 82 20 158/83 H 95 Room Air 09/04/25 18:52 09/04/25 20:43 09/04/25 18:52 09/04/25 20:43 09/04/25 20:43 09/04/25 18:52 Laboratory Results - last 24 hr 09/04/25 19:06: WBC 13.5 H, RBC 4.55 L, Hgb 12.9 L, Hct 40.4 L, MCV 88.8, MCH 28.4, MCHC 31.9, RDW 13.0, Plt Count 346, MPV 10.0, Neut % (Auto) 70.6, Lymph % (Auto) 16.5, [place] % (Auto) 10.0 H, Eos % (Auto) 1.9, Baso % (Auto) 0.6, Neut # (Auto) 9.5 H, Lymph # (Auto) 2.2, [place] # (Auto) 1.4 H, Eos # (Auto) 0.3, Baso # (Auto) 0.1, Sodium 131 L, Potassium 4.0, Chloride 103, Carbon Dioxide 20 L, Anion Gap 12.0, BUN 13, Creatinine 1.30 H, Estimated Creat Clear 96, Estimated GFR 55 L, Est GFR ( Amer) 67, Glucose 113 H, Calcium 9.2, Total Bilirubin 1.2, AST 22, ALT 19, Alkaline Phosphatase 45, Total Protein 8.0, Albumin 4.1, Globulin 3.9 H, Albumin/Globulin Ratio 1.1, Lipase 36 09/04/25 20:34: Urine Color Yellow, Urine Appearance Clear, Urine pH 6.0, Ur Specific [place] <= 1.005, Urine Protein Negative, Urine Glucose (UA) Negative, Urine Ketones Negative, Urine Blood Negative, Urine Nitrate Negative, Urine Bilirubin Negative, Urine Urobilinogen 0.2, Ur Leukocyte Esterase Negative, Urine RBC 5-10, Urine WBC 3-5, Ur Squamous Epith Cells 5-10, Urine Bacteria Trace I & O for Last 24 hours: Intake & Output 09/01/25 09/02/25 09/03/25 09/04/25 23:59 23:59 23:59 23:59 Intake Total 100 / 100 Balance 100 / 100 Weight 122.47 kg Constitutional Constitutional: no acute distress, obese and cooperative *Routine HEENT Exam Head: Present normocephalic and atraumatic Eye: Present EOMI, PERRL and normal accommodation ENT: Present mucous membranes moist *Routine Neck Exam Neck: Present supple, full ROM and trachea midline *Routine Respiratory Exam Respiratory: Present CTA bilaterally, normal respiratory effort, able to speak in complete sentences and symmetric chest movement *Routine Cardiovascular Exam Cardiovascular: Present RRR, Normal S1 and Normal S2 *Routine Abdominal Exam Abdominal: Present soft, normoactive bowel sounds and tenderness *Routine Rectal Exam Rectal:: deferred *Routine Genitalia Exam Genitalia:: deferred *Routine Extremities Exam Extremities: Present full ROM, pulses intact and normal capillary refill Routine Back/Spine/Pelvis Exam Back/Spine: Present full ROM *Routine Skin Exam Skin: Present intact, dry, warm and normal turgor Routine Psychiatric Exam Psychiatric: Present normal affect, cooperative, good insight and good judgment H&P: Result Impressions 69-year-old male Represents for worsening abdominal pain found to have worsening sigmoid diverticula lightest with possible abscess and failed outpatient antibiotic therapy Assessment and Plan *Assessment and plan (1) Sepsis: Status: Acute Qualifiers: Sepsis type: sepsis due to unspecified organism Sepsis acute organ dysfunction status: without acute organ dysfunction Qualified Code(s): A41.9 - Sepsis, unspecified organism Category: Medical Code(s): A41.9 - Sepsis, unspecified organism (2) Sigmoid diverticulitis: Status: Acute Category: Medical Code(s): K57.32 - Diverticulitis of large intestine without perforation or abscess without bleeding (3) Chronic kidney disease: Status: Acute Qualifiers: Chronic kidney disease stage: unspecified stage Qualified Code(s): N18.9 - Chronic kidney disease, unspecified Category: Medical Code(s): N18.9 - Chronic kidney disease, unspecified (4) Metabolic acidosis: Status: Acute Category: Medical Code(s): E87.20 - Acidosis, unspecified (5) Fever: Status: Acute Qualifiers: Fever type: unspecified Qualified Code(s): R50.9 - Fever, unspecified Category: Medical Code(s): R50.9 - Fever, unspecified (6) Leukocytosis: Status: Acute Qualifiers: Leukocytosis type: unspecified Qualified Code(s): D72.829 - Elevated white blood cell count, unspecified Category: Medical Code(s): D72.829 - Elevated white blood cell count, unspecified Plan Assessment: Sepsis Sigmoid diverticulitis with possible abscess Metabolic acidosis Leukocytosis Fever -Patient is currently meeting sepsis criteria with elevated white blood cell count, and source of diverticulitis he did not receive 30 mL hydration he has stable blood pressure. - Will continue 3.375 g Zosyn IV every 6 hours - Obtain blood cultures x 2 and lactic acid - Will consult general surgery in the a.m. - Clinical diet advance as tolerated - Fever has improved. Will give antipyretics as needed for fever greater than 101.1 - If patient's bicarb worsens, will consider supplemental bicarbonate - Sepsis reperfusion screening performed - If patient's symptomology does not improve, will obtain repeat CT scan. He may need colon resection Chronic kidney disease - Patient is at baseline creatinine - Monitor daily Plan: Admit patient to the MedSurg unit Activity as tolerated Clear liquid diet and advance as tolerated to cardiac Consult general surgery in a.m. Obtain CEA CBC/BMP daily Normal saline at 100 mL an hour 40 mg Lovenox subcu daily for DVT prophylaxis 2 mg morphine IV push every 4 hours for severe pain 4 mg Zofran IV push every 8 hours pain nausea vomiting/40 mg of Protonix p.o. daily Blood culture stool GI [facility] Full code I will discussed this case with attending physician Dr. Haines look forward to more input
[2025-09-04 21:09] VITALS: BP 134/84; PULSE 85; RESP 16; TEMP 36.7; O2SAT 95
--- NOTE | 2025-09-04 21:21 | EXP.SEPSISRE ---
[facility] Tissue Perfusion Eval Sepsis Re-Evaluation Performed: Yes Date Performed: 09/04/25 Time Performed: 21:21
[2025-09-04 21:49] VITALS: BP 147/80; PULSE 80; RESP 18; TEMP 36.6; O2SAT 96; BMI 34.2
[2025-09-04] MEDS: PANTOPRAZOLE 40MG TABLET 40 MG PO (23:56)
[2025-09-04] MEDS: PIPERACILLIN/TAZO 3.375 GM in 0.9 % SODIUM CHLORIDE 50 ML IV (23:57)
[2025-09-05] MEDS: 0.9 % SODIUM CHLORIDE 1000ML 1,000 ML 100 ML IV (00:02)
[2025-09-05 04:00] VITALS: BP 134/72; PULSE 80; RESP 14; TEMP 36.8; O2SAT 96; BMI 34.5
[2025-09-05] MEDS: MORPHINE 2MG/ML SYRINGE 2 MG IV (04:06)
[2025-09-05] MEDS: PIPERACILLIN/TAZO 3.375 GM in 0.9 % SODIUM CHLORIDE 50 ML IV ×2 (05:02→11:03)
[2025-09-05 06:49] LABS: Hematocrit 38.7 % (42.0-52.0); Hemoglobin 11.9 g/dL (14.1-18.0); Immature Granulocytes % 0.3 %; Mean Corpuscular HGB Conc 30.7 g/dL (31.8-35.4); Mean Corpuscular Hemoglobin 27.9 pg (27.0-31.2); Mean Corpuscular Volume 90.8 fl (80-94); Nucleated Red Blood Cells % 0 %; Platelet Count 286 K/mm3 (142-424); Red Blood Count 4.26 M/mm3 (4.60-6.20); Red Cell Distribution Width-SD 43.4 fL; White Blood Count 10.5 K/mm3 (4.8-10.8)
[2025-09-05 06:57] LABS: Chloride 105 mmol/L (98-107); Potassium 4.1 mmoL/L (3.5-5.1); Sodium 140 mmol/L (136-145)
[2025-09-05 07:00] LABS: Anion Gap 15.1 mEq/L (5-15); Blood Urea Nitrogen 12 mg/dl (9-20); Calcium 8.4 mg/dl (8.4-10.2); Carbon Dioxide 24 mmol/L (22.0-30.0); Creatinine Clearance Estimated 92 mL/min (50-200); Creatinine,Serum 1.30 mg/dl (0.66-1.25); Estimated Glomerular Filt Rate 55 ml/min (>60); GFR (African American) 67 ML/MIN (>60); Glucose 90 mg/dl (74-100)
--- NOTE | 2025-09-05 07:46 | EXP.SURG.CON ---
History of Present Illness *Admission Date: 09/04/25 *Reason for visit:: Diverticulitis *History of present illness: This is a 69-year-old gentleman seen in consultation after evaluation emergency department for increasing lower abdominal pain. See HPI forwarded from admission H&P below. Currently, the patient states that he feels about the same . He notes his most recent colonoscopy was in the early . He reports a few small benign polyps . Forwarded from admission H&P: This is a 69-year-old male who has a past medical history significant for colon polyp, PTSD, cataract, glaucoma, and hypertension who presents with a chief complaint of nausea, dysuria, fever, and abdominal pain. Due to patient's symptoms, he presents to the emergency room for evaluation. While in the emergency room, CT scan of the abdomen and pelvis revealed persistent focal wall thickening and inflammatory appearance of the mid sigmoid colon most consistent with acute diverticulitis, adjacent localized ill-defined fluid attenuation raises concern for diverticular abscess measuring approximately 3.6 cm, no free air or fluid, short interval follow-up is indicated to ensure resolution with adequate therapy and exclude malignancy. Due to these findings, hospital medicine was consulted for further management. During my evaluation of the patient, patient states he has been having abdominal pain for the last 3 to 4 days. He presented to the emergency room on September [address] scan of the abdomen pelvis which showed acute diverticulitis. Patient was prescribed Flagyl and ciprofloxacin. Despite these medications, patient's abdominal pain worsened. He started to have some emesis and difficulty urinating. Patient complains of right upper quadrant abdominal pain and had a subjective fever of 102-patient states he took some ibuprofen at home. Patient has had prior colonoscopy in the past with polyp removal but this has been sometime before. States over a year ago he was diagnosed with a E. coli in his colon that led to some bleeding he was given antibiotics and discharged from the emergency room. He is currently denying any lightheadedness, dizziness, rigors, shortness of breath, dyspnea, vomiting, chest pain, or headache. Patient states he has chronic loose stool with loose stool experienced after he eats at least 2-3 times a day. Additional pertinent vitals obtained including white blood cell count of 13.5, red blood cell count of 4.55, hemoglobin 12.9, hematocrit of 40.4, sodium 131, carbon oxide 20, creatinine 1.30, GFR 55, and blood glucose 113. PFSH [facility] Disclaimer: The information contained in this section may have been updated after the patient was seen, as this information can be updated by other users. Medical History Leukocytosis PTSD (post-traumatic stress disorder) Cataract Glaucoma Hypertension Surgical History Hx laparoscopic cholecystectomy History of colonoscopy with polypectomy History of amputation of toe History of ankle surgery History of knee surgery History of cardiac cath Family History Father Cancer Other No significant family history Social History (Updated 09/04/25 @ 23:34 by Akosua Garnett RN) Smoking Status: Never smoker smoking status stop date: 2006 how long ago did patient quit smokin second hand exposure: Yes (daily) alcohol intake: current alcohol intake frequency: a few times a month substance use type: denies use current occupational status: retired Travel in the last 8 weeks?: None household members: spouse housing: house Have you lived/traveled outside [place] in past 30 days?: No Contact w/someone who lives/traveled outside [place] past 30 days?: No Exposure to someone with infectious disease in past 14 days?: No Do you have a fever (greater than 100.4 F or 38 C)?: No Have you tested positive for COVID-19?: No Exposed to someone with COVID-19 in past 14 days?: No Do you have a sore throat?: No Do you have a cough?: No Do you have any weakness?: No Do you have any diarrhea?: No Are you experiencing any unusual bleeding?: No Do you have any muscle aches/pain?: No Do you have any abdominal pain?: No Are you experiencing loss of taste or smell?: No Review of Systems Review of Systems Review of systems:: pertinent systems reviewed and negative unless documented below *Gastrointestinal Gastrointestinal: Reports as per HPI *Neurologic Neurologic: Reports system reviewed and no additional complaints, except as documented Meds Home Medications and Allergies Home Medications ?Medication ?Instructions ?Recorded ?Confirmed ?Type ipratropium 0.5 mg-albuterol 3 mg 3 ml inhalation Q4-6H PRN 11/19/24 09/05/25 Rx (2.5 mg base)/3 mL nebulization shortness of breath or wheezing soln #90 mL epinephrine 0.3 mg/0.3 mL 0.3 mg (0.3 mL) IM Q5-15M PRN 12/25/24 09/05/25 Rx injection, auto-injector (EpiPen anaphylaxis #2 ea 2-Santos) losartan 100 mg tablet 100 mg PO DAILY #30 tabs 06/13/25 09/05/25 Rx brimonidine 0.1 % eye drops 1 drp ophthalmic (eye) BID 09/01/25 09/05/25 History ciprofloxacin HCl 500 mg tablet 500 mg PO BID 7 days #14 tabs 09/01/25 09/05/25 Rx metronidazole 500 mg tablet 500 mg PO Q8H 10 days #30 tabs 09/03/25 09/05/25 Rx albuterol 90 mcg-budesonide 80 2 inh inhalation Q4HP PRN 09/05/25 09/05/25 History mcg/actuation HFA aerosol inhaler shortness of breath or wheezing (Airsupra) eszopiclone 2 mg tablet 2 mg PO HSP PRN Insomnia 09/05/25 09/05/25 History fluticasone fur. 100 mcg-umeclid 1 inh inhalation DAILY 09/05/25 09/05/25 History 62.5 mcg-vilant 25 mcg inhalat.powder (Trelegy Ellipta) New Prescriptions to Start Prescriptions: Allergies Allergy/AdvReac Type Severity Reaction Status Date / Time bee venom protein (honey bee) Allergy Severe Anaphylaxis Verified 09/04/25 23:21 Exam (Inpt) Vital signs and Labs for Last 24 Hours: Temp Pulse Resp BP Pulse Ox O2 Del Method 98.2 F 80 14 134/72 96 Room Air 09/05/25 04:00 09/05/25 04:00 09/05/25 04:00 09/05/25 04:00 09/05/25 04:00 09/05/25 05:00 Laboratory Results - last 24 hr 09/04/25 19:06: WBC 13.5 H, RBC 4.55 L, Hgb 12.9 L, Hct 40.4 L, MCV 88.8, MCH 28.4, MCHC 31.9, RDW 13.0, Plt Count 346, MPV 10.0, Neut % (Auto) 70.6, Lymph % (Auto) 16.5, [place] % (Auto) 10.0 H, Eos % (Auto) 1.9, Baso % (Auto) 0.6, Neut # (Auto) 9.5 H, Lymph # (Auto) 2.2, [facility] # (Auto) 1.4 H, Eos # (Auto) 0.3, Baso # (Auto) 0.1, Sodium 131 L, Potassium 4.0, Chloride 103, Carbon Dioxide 20 L, Anion Gap 12.0, BUN 13, Creatinine 1.30 H, Estimated Creat Clear 96, Estimated GFR 55 L, Est GFR ( Amer) 67, Glucose 113 H, Calcium 9.2, Total Bilirubin 1.2, AST 22, ALT 19, Alkaline Phosphatase 45, Total Protein 8.0, Albumin 4.1, Globulin 3.9 H, Albumin/Globulin Ratio 1.1, Lipase 36 09/04/25 20:34: Urine Color Yellow, Urine Appearance Clear, Urine pH 6.0, Ur Specific [place] <= 1.005, Urine Protein Negative, Urine Glucose (UA) Negative, Urine Ketones Negative, Urine Blood Negative, Urine Nitrate Negative, Urine Bilirubin Negative, Urine Urobilinogen 0.2, Ur Leukocyte Esterase Negative, Urine RBC 5-10, Urine WBC 3-5, Ur Squamous Epith Cells 5-10, Urine Bacteria Trace 09/05/25 05:33: WBC 10.5, RBC 4.26 L, Hgb 11.9 L, Hct 38.7 L, MCV 90.8, MCH 27.9, MCHC 30.7 L, RDW 13.2, Plt Count 286, MPV 9.9, Neut % (Auto) 73.2, Lymph % (Auto) 12.9, [place] % (Auto) 11.1 H, Eos % (Auto) 2.0, Baso % (Auto) 0.5, Neut # (Auto) 7.7, Lymph # (Auto) 1.4, [facility] [facility] # (Auto) 1.2 H, Eos # (Auto) 0.2, Baso # (Auto) 0.1, Sodium 140, Potassium 4.1, Chloride 105, Carbon Dioxide 24, Anion Gap 15.1 H, BUN 12, Creatinine 1.30 H, Estimated Creat Clear 92, Estimated GFR 55 L, Est GFR ( Amer) 67, Glucose 90 D, Calcium 8.4 I & O for Labs for Last 24 Hours: Intake & Output 09/02/25 09/03/25 09/04/25 09/05/25 11:59 11:59 11:59 11:59 Intake Total 1440 / 1440 Output Total 0 / 0 Balance 1440 / 1440 Weight 260 lb 11.2 oz Constitutional: no acute distress Respiratory: Absent respiratory distress Cardiac: Absent Tachycardia GI: Present soft and tenderness (Mild periumbilical tenderness. Increased tenderness in the bilateral lower quadrants.); Absent guarding Results Labs 09/05/25 05:33 09/05/25 05:33 Labs: Laboratory Results - last 24 hr 09/04/25 19:06: WBC 13.5 H, RBC 4.55 L, Hgb 12.9 L, Hct 40.4 L, MCV 88.8, MCH 28.4, MCHC 31.9, RDW 13.0, Plt Count 346, MPV 10.0, Neut % (Auto) 70.6, Lymph % (Auto) 16.5, [facility] % (Auto) 10.0 H, Eos % (Auto) 1.9, Baso % (Auto) 0.6, Neut # (Auto) 9.5 H, Lymph # (Auto) 2.2, [facility] # (Auto) 1.4 H, Eos # (Auto) 0.3, Baso # (Auto) 0.1, Sodium 131 L, Potassium 4.0, Chloride 103, Carbon Dioxide 20 L, Anion Gap 12.0, BUN 13, Creatinine 1.30 H, Estimated Creat Clear 96, Estimated GFR 55 L, Est GFR ( Amer) 67, Glucose 113 H, Calcium 9.2, Total Bilirubin 1.2, AST 22, ALT 19, Alkaline Phosphatase 45, Total Protein 8.0, Albumin 4.1, Globulin 3.9 H, Albumin/Globulin Ratio 1.1, Lipase 36 09/04/25 20:34: Urine Color Yellow, Urine Appearance Clear, Urine pH 6.0, Ur Specific [place] <= 1.005, Urine Protein Negative, Urine Glucose (UA) Negative, Urine Ketones Negative, Urine Blood Negative, Urine Nitrate Negative, Urine Bilirubin Negative, Urine Urobilinogen 0.2, Ur Leukocyte Esterase Negative, Urine RBC 5-10, Urine WBC 3-5, Ur Squamous Epith Cells 5-10, Urine Bacteria Trace 09/05/25 05:33: WBC 10.5, RBC 4.26 L, Hgb 11.9 L, Hct 38.7 L, MCV 90.8, MCH 27.9, MCHC 30.7 L, RDW 13.2, Plt Count 286, MPV 9.9, Neut % (Auto) 73.2, Lymph % (Auto) 12.9, [place] % (Auto) 11.1 H, Eos % (Auto) 2.0, Baso % (Auto) 0.5, Neut # (Auto) 7.7, Lymph # (Auto) 1.4, [facility] # (Auto) 1.2 H, Eos # (Auto) 0.2, Baso # (Auto) 0.1, Sodium 140, Potassium 4.1, Chloride 105, Carbon Dioxide 24, Anion Gap 15.1 H, BUN 12, Creatinine 1.30 H, Estimated Creat Clear 92, Estimated GFR 55 L, Est GFR ( Amer) 67, Glucose 90 D, Calcium 8.[address] scan - abdomen: report reviewed and image reviewed CT scan - pelvis: report reviewed and image reviewed Assessment and Plan *Assessment and plan (1) Diverticulitis of intestine with abscess: Status: Acute Qualifiers: Diverticulitis bleeding: without bleeding Diverticulitis site: large intestine Qualified Code(s): K57.20 - Diverticulitis of large intestine with perforation and abscess without bleeding Category: Medical Code(s): K57.80 - Diverticulitis of intestine, part unspecified, with perforation and abscess without bleeding Plan: The patient does not have a mature/drainable abscess at this time. He has severe phlegmonous changes/fat stranding with a small associated fluid volume. He does not have evidence of peritonitis and does not require emergent surgical intervention. Continue IV antibiotics for now (likely transition to PO soon for discharge home and course completion) Serial abdominal exams Colonoscopy in 6-8 weeks Discussion with regard to possible elective resection will be ongoing
[2025-09-05 08:00] VITALS: BP 141/82; PULSE 93; RESP 17; TEMP 37.3; O2SAT 96
--- NOTE | 2025-09-05 08:45 | [facility].PHAINT1 ---
Pharmacy Intervention Comments: MEDICATION RECONCILIATION COMPLETED ON PATIENT USING EXTERNAL FILL HISTORY FROM PHARMACY. -BRUNILDA GUNN, VIGNESHD
--- NOTE | 2025-09-05 08:57 | HMH.PHAAMS2 ---
- Antimicrobial Stewardship Review culture & sensitivity review Stewardship interventions: culture & sensitivity review Comments: BLOOD AND URINE CULTURES PENDING, ON ZOSYN EMPIRICALLY FOR DIVERTICULITIS WITH ABSCESS.
[2025-09-05 12:24] LABS: Clostridium Difficile A/B, PCR Not Detected (NotDetected); Cyclospora Cayetanesis Not Detected (NotDetected); Salmonella, PCR Not Detected (NotDetected); Shiga-like toxin E coli Not Detected (NotDetected); Shigella Enterovasive E coli Not Detected (NotDetected); Vibrio, PCR Not Detected (NotDetected); Yersinia Entercolitica, PCR Not Detected (NotDetected)
--- NOTE | 2025-09-05 13:52 | P.PN_ITS ---
Subjective *Date: 09/05/25 *Time: 13:52 Interval history: Today, patient feels better. Abdominal pain almost resolved. Tolerating p.o. intake. General Surgery consulted, recommend continuing IV antibiotics at this time. No signs of peritonitis. Planning for colonoscopy in 6 to 8 weeks. Exam Data for Last 24 hours Vital signs and Labs for Last 24 Hours: Temp Pulse Resp BP Pulse Ox O2 Del Method 99.1 F 93 H 17 141/82 H 96 Room Air 09/05/25 08:00 09/05/25 08:00 09/05/25 08:00 09/05/25 08:00 09/05/25 08:00 09/05/25 13:30 Laboratory Results - last 24 hr 09/04/25 19:06: WBC 13.5 H, RBC 4.55 L, Hgb 12.9 L, Hct 40.4 L, MCV 88.8, MCH 28.4, MCHC 31.9, RDW 13.0, Plt Count 346, MPV 10.0, Neut % (Auto) 70.6, Lymph % (Auto) 16.5, [place] % (Auto) 10.0 H, Eos % (Auto) 1.9, Baso % (Auto) 0.6, Neut # (Auto) 9.5 H, Lymph # (Auto) 2.2, [place] # (Auto) 1.4 H, Eos # (Auto) 0.3, Baso # (Auto) 0.1, Sodium 131 L, Potassium 4.0, Chloride 103, Carbon Dioxide 20 L, Anion Gap 12.0, BUN 13, Creatinine 1.30 H, Estimated Creat Clear 96, Estimated GFR 55 L, Est GFR ( Amer) 67, Glucose 113 H, Calcium 9.2, Total Bilirubin 1.2, AST 22, ALT 19, Alkaline Phosphatase 45, Total Protein 8.0, Albumin 4.1, Globulin 3.9 H, Albumin/Globulin Ratio 1.1, Lipase 36 09/04/25 20:34: Urine Color Yellow, Urine Appearance Clear, Urine pH 6.0, Ur Specific [place] <= 1.005, Urine Protein Negative, Urine Glucose (UA) Negative, Urine Ketones Negative, Urine Blood Negative, Urine Nitrate Negative, Urine Bilirubin Negative, Urine Urobilinogen 0.2, Ur Leukocyte Esterase Negative, Urine RBC 5-10, Urine WBC 3-5, Ur Squamous Epith Cells 5-10, Urine Bacteria Trace 09/05/25 05:33: WBC 10.5, RBC 4.26 L, Hgb 11.9 L, Hct 38.7 L, MCV 90.8, MCH 27.9, MCHC 30.7 L, RDW 13.2, Plt Count 286, MPV 9.9, Neut % (Auto) 73.2, Lymph % (Auto) 12.9, [place] % (Auto) 11.1 H, Eos % (Auto) 2.0, Baso % (Auto) 0.5, Neut # (Auto) 7.7, Lymph # (Auto) 1.4, [place] # (Auto) 1.2 H, Eos # (Auto) 0.2, Baso # (Auto) 0.1, Sodium 140, Potassium 4.1, Chloride 105, Carbon Dioxide 24, Anion Gap 15.1 H, BUN 12, Creatinine 1.30 H, Estimated Creat Clear 92, Estimated GFR 55 L, Est GFR ( Amer) 67, Glucose 90 D, Calcium 8.4 I & O for Last 24 hours: Intake & Output 09/02/25 09/03/25 09/04/25 09/05/25 23:59 23:59 23:59 23:59 Intake Total 1100 / 1340 910 / 910 Output Total 0 / 0 Balance 1100 / 1340 910 / 910 Weight 117.39 kg 118.252 kg Constitutional Constitutional: no acute distress *Routine HEENT Exam Head: Present normocephalic Eye: Present EOMI and PERRL ENT: Present mucous membranes moist *Routine Neck Exam Neck: Present supple; Absent lymphadenopathy *Routine Respiratory Exam Respiratory: Present CTA bilaterally *Routine Cardiovascular Exam Cardiovascular: Present RRR *Routine Abdominal Exam Abdominal: Present soft and normoactive bowel sounds; Absent tenderness *Routine Extremities Exam Extremities: Absent cyanosis, clubbing or edema *Routine Skin Exam Skin: Present warm; Absent rash *Routine Neurological Exam Neurological: Present alert and oriented X3 Assessment and Plan *Assessment and plan (1) Diverticulitis of intestine with abscess: Status: Acute Qualifiers: Diverticulitis bleeding: without bleeding Diverticulitis site: large intestine Qualified Code(s): K57.20 - Diverticulitis of large intestine with perforation and abscess without bleeding Category: Medical Code(s): K57.80 - Diverticulitis of intestine, part unspecified, with perforation and abs cess without bleeding Plan Xavier Mooney is a 69-year-old male who presented with abdominal pain and was admitted for sigmoid diverticulitis with associated abscess. #Abdominal pain, resolving #Acute sigmoid diverticulitis with abscess ? Patient presented with abdominal pain, CT abdomen/pelvis revealed sigmoid diverticulitis with associated 3.6 cm abscess. Failed outpatient therapy with Cipro, Flagyl. ? Initial WBC 13.2, improved to 10.5 today. Vital signs stable. ? General Surgery consulted, recommend continuing IV antibiotics at this time. No signs of peritonitis. Planning for colonoscopy in 6 to 8 weeks. ? Today, patient feels better. Abdominal pain almost resolved. Tolerating p.o. intake. ? Continue IV Zosyn 3.375 g every 6 hours. Continue serial abdominal exams. ? Follow-up blood cultures. ? Follow-up morning CBC. #Hypertension ? Continue home losartan 100 mg daily. #COPD ? Continue home Trelegy 100. Full code DVT prophylaxis: Lovenox 40 mg
[2025-09-05 16:00] VITALS: BP 131/78; PULSE 83; RESP 16; TEMP 36.9; O2SAT 94
[2025-09-05] MEDS: ACETAMINOPHEN 325MG TAB 650 MG PO ×2 (16:24→23:37)
[2025-09-05] MEDS: IRBESARTAN 150MG TAB 150 MG PO (16:24)
--- NOTE | 2025-09-05 17:45 | PC.NURSE ---
VS stable, patient on room air. Lung sounds clear. IV antibiotics given and patient able to sit in chair for most of shift. Patient requested tylenol for headache, relief noted.
[2025-09-05] MEDS: PANTOPRAZOLE 40MG TABLET 40 MG PO (19:49)
[2025-09-05 20:00] VITALS: BP 109/56; PULSE 72; RESP 15; TEMP 37.1; O2SAT 96
[2025-09-06 04:00] VITALS: BP 138/72; PULSE 80; RESP 12; TEMP 36.6; O2SAT 96; BMI 34.1
[2025-09-06] MEDS: FLUTICASONE/UMECLIDIN/VILANTER 100/62.5/25MCG INHALER 1 PUFF IH (05:10)
[2025-09-06 07:57] LABS: Hematocrit 39.7 % (42.0-52.0); Hemoglobin 12.1 g/dL (14.1-18.0); Immature Granulocytes % 0.3 %; Mean Corpuscular HGB Conc 30.5 g/dL (31.8-35.4); Mean Corpuscular Hemoglobin 27.6 pg (27.0-31.2); Mean Corpuscular Volume 90.4 fl (80-94); Nucleated Red Blood Cells % 0 %; Platelet Count 319 K/mm3 (142-424); Red Blood Count 4.39 M/mm3 (4.60-6.20); Red Cell Distribution Width-SD 42.5 fL; White Blood Count 12.3 K/mm3 (4.8-10.8)
[2025-09-06 08:00] VITALS: BP 155/82; PULSE 87; RESP 16; TEMP 36.9; O2SAT 95
[2025-09-06 08:29] LABS: Anion Gap 10.0 mEq/L (5-15); Blood Urea Nitrogen 8 mg/dl (9-20); Calcium 9.1 mg/dl (8.4-10.2); Carbon Dioxide 24 mmol/L (22.0-30.0); Chloride 105 mmol/L (98-107); Creatinine Clearance Estimated 99 mL/min (50-200); Creatinine,Serum 1.20 mg/dl (0.66-1.25); Estimated Glomerular Filt Rate 60 ml/min (>60); GFR (African American) 73 ML/MIN (>60); Glucose 102 mg/dl (74-100); Potassium 4.0 mmoL/L (3.5-5.1); Sodium 135 mmol/L (136-145)
[2025-09-06] MEDS: IRBESARTAN 150MG TAB 150 MG PO (09:03)
[2025-09-06] MEDS: ACETAMINOPHEN 325MG TAB 650 MG PO (11:40)
[2025-09-06 12:45] LABS: C-Reactive Protein 271.5 mg/L (0-4)
--- NOTE | 2025-09-06 13:56 | EXP.DC.SUM ---
General Admission date:: 09/04/25 HPI HPI HPI: This is a 69-year-old gentleman seen in consultation after evaluation emergency department for increasing lower abdominal pain. See HPI forwarded from admission H&P below. Currently, the patient states that he feels about the same . He notes his most recent colonoscopy was in the early . He reports a few small benign polyps . Forwarded from admission H&P: This is a 69-year-old male who has a past medical history significant for colon polyp, PTSD, cataract, glaucoma, and hypertension who presents with a chief complaint of nausea, dysuria, fever, and abdominal pain. Due to patient's symptoms, he presents to the emergency room for evaluation. While in the emergency room, CT scan of the abdomen and pelvis revealed persistent focal wall thickening and inflammatory appearance of the mid sigmoid colon most consistent with acute diverticulitis, adjacent localized ill-defined fluid attenuation raises concern for diverticular abscess measuring approximately 3.6 cm, no free air or fluid, short interval follow-up is indicated to ensure resolution with adequate therapy and exclude malignancy. Due to these findings, hospital medicine was consulted for further management. During my evaluation of the patient, patient states he has been having abdominal pain for the last 3 to 4 days. He presented to the emergency room on September [address] scan of the abdomen pelvis which showed acute diverticulitis. Patient was prescribed Flagyl and ciprofloxacin. Despite these medications, patient's abdominal pain worsened. He started to have some emesis and difficulty urinating. Patient complains of right upper quadrant abdominal pain and had a subjective fever of 102-patient states he took some ibuprofen at home. Patient has had prior colonoscopy in the past with polyp removal but this has been sometime before. States over a year ago he was diagnosed with a E. coli in his colon that led to some bleeding he was given antibiotics and discharged from the emergency room. He is currently denying any lightheadedness, dizziness, rigors, shortness of breath, dyspnea, vomiting, chest pain, or headache. Patient states he has chronic loose stool with loose stool experienced after he eats at least 2-3 times a day. Additional pertinent vitals obtained including white blood cell count of 13.5, red blood cell count of 4.55, hemoglobin 12.9, hematocrit of 40.4, sodium 131, carbon oxide 20, creatinine 1.30, GFR 55, and blood glucose 113. Hospital Course Hospital Course Hospital Course: Xavier Mooney is a 69-year-old male who presented with abdominal pain and was admitted for sigmoid diverticulitis with associated abscess. #Abdominal pain, resolving #Acute sigmoid diverticulitis with abscess ? Patient presented with abdominal pain, CT abdomen/pelvis revealed sigmoid diverticulitis with associated 3.6 cm abscess. Failed outpatient therapy with Cipro, Flagyl. ? General Surgery consulted, recommended medical management with antibiotics. No signs of peritonitis. Planning for colonoscopy in 6 to 8 weeks. ? Treated with IV Zosyn, will transition to Augmentin for total of 14 days. Patient failed outpatient Cipro, Flagyl. ? Initial WBC 13.2, improved to 12.3 though had a slight bump from 10.5 overnight. ? However, patient feels much better today. Tolerating p.o. intake without issues. Abdominal pain significantly improved, no peritoneal signs. No fevers, vital signs stable. Not meeting sepsis criteria. ? Discharged with Augmentin 500 mg for 11 more days. ? Will follow-up with Dr. Baptiste within 1 week. #Hypertension ? Continue home losartan 100 mg daily. #COPD ? Continue home Trelegy 100. Total time spent on discharge: 32 minutes on chart review, counseling, documentation, and direct care with patient. Exam Data for Last 24 hours Vital signs and Labs for Last 24 Hours: Temp Pulse Resp BP Pulse Ox O2 Del Method 98.5 F 87 16 155/82 H 95 Room Air 09/06/25 08:00 09/06/25 08:00 09/06/25 08:00 09/06/25 08:00 09/06/25 08:00 09/06/25 13:00 Laboratory Results - last 24 hr 09/04/25 12:18: Stl C. cayetanensis PCR Not detected, Stool Campylobacter PCR Not detected, Stl C.difficile Tox PCR Not detected, Stool Cryptosporidium PCR Not detected, Stl E.coli Shiga Tox PCR Not detected, Stool Giardia Lamblia PCR Not detected, Stool Salmonella PCR Not detected, Stl Shigella/EIEC PCR Not detected, St Y.enterocolitica PCR Not detected, Stool Vibrio (PCR) Not detected, Stl Norovirus GI/GII PCR Not detected 09/06/25 07:15: WBC 12.3 H, RBC 4.39 L, Hgb 12.1 L, Hct 39.7 L, MCV 90.4, MCH 27.6, MCHC 30.5 L, RDW 12.8, Plt Count 319, MPV 9.6, Neut % (Auto) 74.8, Lymph % (Auto) 14.1, [place] % (Auto) 8.0, Eos % (Auto) 2.4, Baso % (Auto) 0.4, Neut # (Auto) 9.2 H, Lymph # (Auto) 1.7, [place] # (Auto) 1.0, Eos # (Auto) 0.3, Baso # (Auto) 0.1, Sodium 135 L, Potassium 4.0, Chloride 105, Carbon Dioxide 24, Anion Gap 10.0, BUN 8 L D, Creatinine 1.20, Estimated Creat Clear 99, Estimated GFR 60, Est GFR ( Amer) 73, Glucose 102 H, Calcium 9.1, C-Reactive Protein 271.5 H I & O for Last 24 hours: Intake & Output 09/03/25 09/04/25 09/05/25 09/06/25 23:59 23:59 23:59 23:59 Intake Total 1100 / 1340 2510 / 3230 2069 Output Total 0 / 0 0 / 0 Balance 1100 / 1340 2510 / 3230 2069 Weight 117.39 kg 118.252 kg 116.891 kg Microbiology Reports for the Last 24 Hours: Microbiology 09/04/25 20:34 Urine,Clean Catch Urine Culture - Final NO GROWTH AFTER 48 HOURS 09/04/25 19:47 Blood Blood Culture - Preliminary NO GROWTH AFTER 24 HOURS 09/04/25 19:20 Blood Blood Culture - Preliminary NO GROWTH AFTER 24 HOURS Constitutional Constitutional: no acute distress *Routine HEENT Exam Head: Present normocephalic Eye: Present EOMI and PERRL ENT: Present mucous membranes moist *Routine Neck Exam Neck: Present supple; Absent lymphadenopathy *Routine Respiratory Exam Respiratory: Present CTA bilaterally *Routine Cardiovascular Exam Cardiovascular: Present RRR *Routine Abdominal Exam Abdominal: Present soft and normoactive bowel sounds; Absent tenderness *Routine Extremities Exam Extremities: Absent cyanosis, clubbing or edema *Routine Skin Exam Skin: Present warm; Absent rash *Routine Neurological Exam Neurological: Present alert and oriented X3 Results Data Completed and Pending Labs on day of discharge: Labs from last 24 hours 12/06/25 12/04/25 07:15 12:18 WBC 12.3 H RBC 4.39 L Hgb 12.1 L Hct 39.7 L MCV 90.4 MCH 27.6 MCHC 30.5 L RDW 12.8 Plt Count 319 MPV 9.6 Neut % (Auto) 74.8 Lymph % (Auto) 14.1 [place] % (Auto) 8.0 Eos % (Auto) 2.4 Baso % (Auto) 0.4 Neut # (Auto) 9.2 H Lymph # (Auto) 1.7 [place] # (Auto) 1.0 Eos # (Auto) 0.3 Baso # (Auto) 0.1 Sodium 135 L Potassium 4.0 Chloride 105 Carbon Dioxide 24 Anion Gap 10.0 BUN 8 L D Creatinine 1.20 Estimated Creat Clear 99 Estimated GFR 60 Est GFR ( Amer) 73 Glucose 102 H Calcium 9.1 C-Reactive Protein 271.5 H Stl C. cayetanensis PCR Not detected Stool Campylobacter PCR Not detected Stl C.difficile Tox PCR Not detected Stool Cryptosporidium PCR Not detected Stl E.coli Shiga Tox PCR Not detected Stool Giardia Lamblia PCR Not detected Stool Salmonella PCR Not detected Stl Shigella/EIEC PCR Not detected St Y.enterocolitica PCR Not detected Stool Vibrio (PCR) Not detected Stl Norovirus GI/GII PCR Not detected Preliminary micro results at discharge 09/04/25 19:47 Blood Culture - Preliminary Blood NO GROWTH AFTER 24 HOURS 09/04/25 19:20 Blood Culture - Preliminary Blood NO GROWTH AFTER 24 HOURS DS: Diagnosis Discharge Diagnosis (1) Diverticulitis of intestine with abscess: Status: Acute Code(s): K57.80 - Diverticulitis of intestine, part unspecified, with perforation and abscess without bleeding Qualifiers: Diverticulitis bleeding: without bleeding Diverticulitis site: large intestine Qualified Code(s): K57.20 - Diverticulitis of large intestine with perforation and abscess without bleeding Meds Home Medications and Allergies Home Medications ?Medication ?Instructions ?Recorded ?Confirmed ?Type ipratropium 0.5 mg-albuterol 3 mg 3 ml inhalation Q4-6H PRN 11/19/24 09/05/25 Rx (2.5 mg base)/3 mL nebulization shortness of breath or wheezing soln #90 mL epinephrine 0.3 mg/0.3 mL 0.3 mg (0.3 mL) IM Q5-15M PRN 12/25/24 09/05/25 Rx injection, auto-injector (EpiPen anaphylaxis #2 ea 2-Santos) losartan 100 mg tablet 100 mg PO DAILY #30 tabs 06/13/25 09/05/25 Rx brimonidine 0.1 % eye drops 1 drp ophthalmic (eye) BID 09/01/25 09/05/25 History albuterol 90 mcg-budesonide 80 2 inh inhalation Q4HP PRN 09/05/25 09/05/25 History mcg/actuation HFA aerosol inhaler shortness of breath or wheezing (Airsupra) eszopiclone 2 mg tablet 2 mg PO HSP PRN Insomnia 09/05/25 09/05/25 History fluticasone fur. 100 mcg-umeclid 1 inh inhalation DAILY 09/05/25 09/05/25 History 62.5 mcg-vilant 25 mcg inhalat.powder (Trelegy Ellipta) amoxicillin 500 mg-potassium 1 tab PO TID 11 days #33 tabs 09/06/25 Rx clavulanate 125 mg tablet (Augmentin) New Prescriptions to Start Prescriptions: amoxicillin-pot clavulanate [Augmentin] Khai Haines Allergies Allergy/AdvReac Type Severity Reaction Status Date / Time bee venom protein (honey bee) Allergy Severe Anaphylaxis Verified 09/04/25 23:21 Discharge Plan Disposition Patient Disposition: Home, Self-Care Condition: Fair Discharge Order Discharge Orders: Discharge Order (Routine); Ordered 09/06/25 Ordered By: Khai Haines Follow up Plan Follow up with: Onofre Baptiste MD [Staff Physician, General Surgery] - 09/10/25 Referral Note: please call for appointment Prescriptions/Medication Reconciliation: New amoxicillin-pot clavulanate [Augmentin] 500-125 mg tablet 1 tab PO TID 11 Days Qty: 33 0RF Continued brimonidine 0.1 % drops 1 drp ophthalmic (eye) BID ipratropium-albuterol 0.5 mg-3 mg(2.5 mg base)/3 mL solution for nebulization 3 ml inhalation Q4-6H PRN (Reason: shortness of breath or wheezing) Qty: 90 0RF epinephrine [EpiPen 2-Santos] 0.3 mg/0.3 mL auto-injector 0.3 mg IM Q5-15M PRN (Reason: anaphylaxis) Qty: 2 2RF Rx Instructions: do not exceed 3 doses per episode losartan 100 mg tablet 100 mg PO DAILY Qty: 30 5RF Trelegy Ellipta 100-62.5-25 mcg blister with device 1 inh inhalation DAILY eszopiclone 2 mg tablet 2 mg PO HSP PRN (Reason: Insomnia) Airsupra 90-80 mcg/actuation HFA aerosol inhaler 2 inh inhalation Q4HP PRN (Reason: shortness of breath or wheezing) Discontinued ciprofloxacin HCl 500 mg tablet 500 mg PO BID 7 Days Qty: 14 0RF metronidazole 500 mg tablet 500 mg PO Q8H 10 Days Qty: 30 0RF Problem Reconciliation Problems Reviewed?: Yes Patient Discharge Instructions Patient Instructions: DI for Diverticulitis, DI for Sepsis in Adults, Stop Light Infection Print Language: Cymro Providers Primary Care Provider: Laura Richardson Admit Provider: Khai Haines Attending Provider: Khai Haines
[2025-09-07 07:09] LABS: CEA 92.3 ng/mL (0.0-4.7)
--- NOTE | 2025-09-08 13:01 | SW/DCPLANNER ---
Spoke with patient on the phone. Patient stated that he is doing well. Patient stated that he is aware of his upcoming appointments. Patient stated that he was able to chart picker his new medicine. Patient stated that he has no concerns or questions at this time. Romy Jacinto
== END 2025-09-06 15:53 | disposition home or self-care (01) | DRG 392 ==
LOC: ER 19:22 → 2ND 20:46
PROVIDERS: Nurse Practitioner Family; Admitting Provider Student in an Organized Health Care Education/Training Program; Emergency Provider Student in an Organized Health Care Education/Training Program; PCP Nurse Practitioner Family; Visit Provider Student in an Organized Health Care Education/Training Program
DX: K57.20 Diverticulitis of large intestine with perforation and abscess without bleeding (principal); E87.20 Acidosis, unspecified; I12.9 Hypertensive chronic kidney disease with stage 1 through stage 4 chronic kidney disease, or unspecified chronic kidney disease; N18.9 Chronic kidney disease, unspecified; J44.9 Chronic obstructive pulmonary disease, unspecified; D72.829 Elevated white blood cell count, unspecified; Z86.0100 Personal history of colon polyps, unspecified; Z90.49 Acquired absence of other specified parts of digestive tract; Z91.030 Bee allergy status; Z79.899 Other long term (current) drug therapy; R30.0 Dysuria; R35.0 Frequency of micturition; R39.89 Other symptoms and signs involving the genitourinary system; R10.9 Unspecified abdominal pain; M54.9 Dorsalgia, unspecified
CPT/HCPCS: 36415; 74177; 80048; 80053; 81001; 82378; 83690; 85025; 86140; 87040; 87045; 87086; 87506; 94640; 99285; J1650; J2270; J2543; J7030; Q9967

== ENCOUNTER 2025-09-10 13:54 | Outpatient (CLI) | payer MEDICARE, OTHER, SELFPAY ==
[2025-09-10 14:42] LABS: Hematocrit 39.7 % (42.0-52.0); Hemoglobin 12.3 g/dL (14.1-18.0); Immature Granulocytes % 0.7 %; Mean Corpuscular HGB Conc 31.0 g/dL (31.8-35.4); Mean Corpuscular Hemoglobin 27.8 pg (27.0-31.2); Mean Corpuscular Volume 89.6 fl (80-94); Nucleated Red Blood Cells % 0 %; Platelet Count 473 K/mm3 (142-424); Red Blood Count 4.43 M/mm3 (4.60-6.20); Red Cell Distribution Width-SD 42.5 fL; White Blood Count 12.5 K/mm3 (4.8-10.8)
== END 2025-09-10 23:59 | disposition home or self-care (01) ==
LOC: LAB 13:54
PROVIDERS: PCP Nurse Practitioner Family; Visit Provider Surgery
DX: K57.80 Diverticulitis of intestine, part unspecified, with perforation and abscess without bleeding (principal)
CPT/HCPCS: 36415; 85025

== ENCOUNTER 2025-09-17 10:32 | Outpatient (CLI) | payer MEDICARE, OTHER, SELFPAY ==
[2025-09-17 11:08] LABS: Hematocrit 41.9 % (42.0-52.0); Hemoglobin 12.5 g/dL (14.1-18.0); Immature Granulocytes % 0.6 %; Mean Corpuscular HGB Conc 29.8 g/dL (31.8-35.4); Mean Corpuscular Hemoglobin 26.8 pg (27.0-31.2); Mean Corpuscular Volume 89.7 fl (80-94); Nucleated Red Blood Cells % 0 %; Platelet Count 511 K/mm3 (142-424); Red Blood Count 4.67 M/mm3 (4.60-6.20); Red Cell Distribution Width-SD 43.1 fL; White Blood Count 13.8 K/mm3 (4.8-10.8)
== END 2025-09-17 23:59 | disposition home or self-care (01) ==
LOC: LAB 10:33
PROVIDERS: PCP Nurse Practitioner Family; Visit Provider Surgery
DX: K57.80 Diverticulitis of intestine, part unspecified, with perforation and abscess without bleeding (principal)
CPT/HCPCS: 36415; 85025

== ENCOUNTER 2025-09-23 06:15 | Day surgery (SDC) | payer MEDICARE, OTHER, SELFPAY ==
[2025-09-22 13:13] VITALS: BMI 31.6
[2025-09-23] VITALS (8 sets, daily range): BP systolic 80–136; BP diastolic 43–81; PULSE 89–110; RESP 18; TEMP 36.2–36.9; O2SAT 94–98
[2025-09-23] MEDS: LACTATED RINGERS 1000ML 1,000 ML 50 ML IV (06:46)
--- NOTE | 2025-09-23 06:54 | EXP.GEN.HP ---
HPI HPI HPI: The patient presents for flexible sigmoidoscopy. Forwarded from office visit note dated September 17, 2025: The patient returns for reevaluation and follow-up of repeat CBC. His white blood cell count has slightly risen to 13.8. He feels about the same . No fevers. Vague abdominal pain persists. He is scheduled to complete his course of antibiotics later today. (1) Diverticulitis of intestine with abscess: Repeat white blood cell count was slightly increased to 13.8. No fevers. No change in pain. (2) Elevated CEA: Significant CEA elevation noted. I discussed the possibility of colon cancer with concomitant microperforation as opposed to true diverticulitis. Although there is an inherent increased risk with early procedural intervention, he is tentatively being scheduled flexible sigmoidoscopy early next week. Oncologic evaluation pending. [facility] Disclaimer: The information contained in this section may have been updated after the patient was seen, as this information can be updated by other users. Medical History (Updated 09/23/25 @ 06:57 by Onofre Baptiste MD) Leukocytosis PTSD (post-traumatic stress disorder) Cataract Glaucoma Hypertension Surgical History History of cataract surgery Hx laparoscopic cholecystectomy History of colonoscopy with polypectomy History of amputation of toe History of ankle surgery History of knee surgery History of cardiac cath Family History Father Family history of heart disease Family history of cancer Cancer Father Social History Smoking Status: Never smoker smoking status stop date: 2006 how long ago did patient quit smokin second hand exposure: Yes (daily) alcohol intake: never substance use type: denies use current occupational status: retired Travel in the last 8 weeks?: None household members: spouse housing: house Have you lived/traveled outside [place] in past 30 days?: No Contact w/someone who lives/traveled outside [place] past 30 days?: No Exposure to someone with infectious disease in past 14 days?: No Do you have a fever (greater than 100.4 F or 38 C)?: No Have you tested positive for COVID-19?: No Exposed to someone with COVID-19 in past 14 days?: No Do you have a sore throat?: No Do you have a cough?: No Do you have any weakness?: No Do you have any diarrhea?: No Are you experiencing any unusual bleeding?: No Do you have any muscle aches/pain?: No Do you have any abdominal pain?: No Are you experiencing loss of taste or smell?: No Other Medical History Have you received the Flu Vaccine for this season: No Have you received the Pneumonia Vaccine: No Review of Systems Review of Systems Review of systems:: pertinent systems reviewed and negative unless documented below Meds Home Medications and Allergies Home Medications ?Medication ?Instructions ?Recorded ?Confirmed ?Type ipratropium 0.5 mg-albuterol 3 mg 3 ml inhalation Q4-6H PRN 11/19/24 09/23/25 Rx (2.5 mg base)/3 mL nebulization shortness of breath or wheezing soln #90 mL epinephrine 0.3 mg/0.3 mL 0.3 mg (0.3 mL) IM Q5-15M PRN 12/25/24 09/23/25 Rx injection, auto-injector (EpiPen anaphylaxis #2 ea 2-Santos) losartan 100 mg tablet 100 mg PO DAILY #30 tabs 06/13/25 09/23/25 Rx brimonidine 0.1 % eye drops 1 drp ophthalmic (eye) BID 09/01/25 09/23/25 History albuterol 90 mcg-budesonide 80 2 inh inhalation Q4HP PRN 09/05/25 09/23/25 History mcg/actuation HFA aerosol inhaler shortness of breath or wheezing (Airsupra) eszopiclone 2 mg tablet 2 mg PO HSP PRN Insomnia 09/05/25 09/23/25 History fluticasone fur. 100 mcg-umeclid 1 inh inhalation DAILY 09/05/25 09/23/25 History 62.5 mcg-vilant 25 mcg inhalat.powder (Trelegy Ellipta) New Prescriptions to Start Prescriptions: Allergies Allergy/AdvReac Type Severity Reaction Status Date / Time hornet venom Allergy Anaphylaxis Verified 09/23/25 06:37 Exam Data for Last 24 hours Vital signs and Labs for Last 24 Hours: Temp Pulse Resp BP Pulse Ox O2 Del Method 97.2 F L 110 H 18 136/81 96 Room Air 09/23/25 06:39 09/23/25 06:39 09/23/25 06:39 09/23/25 06:39 09/23/25 06:39 09/23/25 06:39 I & O for Last 24 hours: Intake & Output 09/20/25 09/21/25 09/22/25 09/23/25 11:59 11:59 11:59 11:59 Weight 240 lb Constitutional Constitutional: no acute distress *Routine HEENT Exam Head: Present normocephalic Eye: Present EOMI ENT: Present mucous membranes moist *Routine Neck Exam Neck: Present full ROM *Routine Respiratory Exam Respiratory: Absent respiratory distress *Routine Cardiovascular Exam Cardiovascular: Absent tachycardia *Routine Abdominal Exam Abdominal: Present soft *Routine Rectal Exam Rectal:: deferred *Routine Genitalia Exam Genitalia:: deferred *Routine Extremities Exam Extremities: Present full ROM *Routine Skin Exam Skin: Absent erythema *Routine Neurological Exam Neurological: Present alert Assessment and Plan *Assessment and plan (1) Elevated CEA: Status: Acute Category: Medical Code(s): R97.0 - Elevated carcinoembryonic antigen [CEA] (2) Diverticulitis of intestine with abscess: Problem Comment: Significant possibility of carcinoma with microperforation as opposed to true diverticulitis Status: Acute Qualifiers: Diverticulitis bleeding: without bleeding Diverticulitis site: large intestine Qualified Code(s): K57.20 - Diverticulitis of large intestine with perforation and abscess without bleeding Category: Medical Code(s): K57.80 - Diverticulitis of intestine, part unspecified, with perforation and abscess without bleeding Plan: Flexible sigmoidoscopy today I have discussed the risks and benefits including, but not limited to: Bleeding Infection Damage to surrounding tissue Colonic perforation Inherent risks of sedation The patient agrees to proceed.
--- NOTE | 2025-09-23 07:37 | HMH.SCOPE ---
Procedure: Date: 09/23/25 Patient Date of :: 1955 Procedure Performed:: Flexible sigmoidoscopy with biopsy Indications:: Elevated CEA level Recently-diagnosed diverticulitis with focal abscess/microperforation Performing Provider:: Onofre Baptiste MD Referring Provider:: . Sedation:: Monitored anesthesia care Procedure:: After informed consent was obtained the patient was taken to the endoscopy suite. Sedation ensued after the patient was transferred to the left lateral decubitus position. Pulse, blood pressure, and oxygen saturation were monitored throughout the procedure. Digital rectal exam revealed no significant abnormality. The colonoscope was placed in position. The colonoscope was advanced to the level of a circumferential mass beginning around 27 cm. Multiple biopsies were obtained. The colonoscope was carefully removed and the patient was transferred to recovery in stable condition. Please see findings and specimens below for detail. Findings:: Hemorrhoidal cushions Circumferential mass around 27 cm Specimens:: Biopsies of sigmoid mass Recommendations:: Follow-up pathology Oncologic and surgical planning pending Complications:: No immediate Estimated blood obtained (mL): 1 Colonoscopy Component Colonoscopy Component Was a colonoscopy performed during today's procedure?: No
--- NOTE | 2025-09-23 07:42 | EXP.ANES.CKL ---
[facility] Disclaimer: The information contained in this section may have been updated after the patient was seen, as this information can be updated by other users. Medical History (Updated 09/23/25 @ 06:57 by Onofre Baptiste MD) Leukocytosis PTSD (post-traumatic stress disorder) Cataract Glaucoma Hypertension Surgical History History of cataract surgery Hx laparoscopic cholecystectomy History of colonoscopy with polypectomy History of amputation of toe History of ankle surgery History of knee surgery History of cardiac cath Family History Father Cancer Other Family history of cancer Family history of heart disease Social History Smoking Status: Never smoker smoking status stop date: 2006 how long ago did patient quit smokin second hand exposure: Yes (daily) alcohol intake: never substance use type: denies use current occupational status: retired Travel in the last 8 weeks?: None household members: spouse housing: house Have you lived/traveled outside US in past 30 days?: No Contact w/someone who lives/traveled outside US past 30 days?: No Exposure to someone with infectious disease in past 14 days?: No Do you have a fever (greater than 100.4 F or 38 C)?: No Have you tested positive for COVID-19?: No Exposed to someone with COVID-19 in past 14 days?: No Do you have a sore throat?: No Do you have a cough?: No Do you have any weakness?: No Do you have any diarrhea?: No Are you experiencing any unusual bleeding?: No Do you have any muscle aches/pain?: No Do you have any abdominal pain?: No Are you experiencing loss of taste or smell?: No [facility] Anesthesia Checklist Patient Identification Patient Identification: Arm Band and Family Structural Data Admitted From: Home Planned Operative Procedure/s: Sigmoidoscopy Consent for Planned Operative Procedure(s) Verified: Yes Verified Documents: Surgical Consent and History and Physical NPO Status Verified Time NPO: 00:00 Additional verifications Patient : No Anesthesia Reactions: No Hx Blood Transfusions: No Blood Transfusion Reaction: No Cephalosporin Allergy: No Previous Colonoscopy: Yes Airway Assessment Mallampati Score:: Class II C-Spine Mobility Assessed: Yes TMJ Mobility Assessed: Yes Dentition: Good Dentition Neurological Assessment Level of Consciousness: Awake, Alert, Appropriate and Follows Commands Hx Seizures: No Numbness or tingling in extremities: No Anesthesia Plan Anesthesia Risk discussed: Yes ASA Class: II Anesthesia Type: MAC Preoperative Comments Pre-Operative Comments: Hypertension.
== END 2025-09-23 08:42 | disposition home or self-care (01) ==
PROVIDERS: PCP Nurse Practitioner Family; Visit Provider Surgery
PROC: 0DJD8ZZ Inspection of Lower Intestinal Tract, Via Natural or Artificial Opening Endoscopic (ICD-10-PCS; CPT 45330; principal; 2025-09-23 07:30)
DX: C18.7 Malignant neoplasm of sigmoid colon (principal); K57.20 Diverticulitis of large intestine with perforation and abscess without bleeding; R97.0 Elevated carcinoembryonic antigen [CEA]
CPT/HCPCS: 45331; 88305; 88341; 88342; J2704; J7120

== ENCOUNTER 2025-09-30 14:40 | Inpatient (IN) | payer MEDICARE, OTHER, SELFPAY ==
--- NOTE | 2025-09-30 14:42 | P.HP_ITS ---
<Statement entered by Joon Aggarwal MD - 09/30/25 17:34> Rounded on patient after nurse practitioner. Personally examined and interviewed patient. Agree with exam findings and care plan as documented. History of Present Illness *Admission Date: 09/30/25 *Reason for visit:: fevers, abdominal pain, sigmoid adenocarcinoma *History of present illness: Mr. Mooney is a 70-year-old male who presented to his oncologist office today for a outpatient appointment. He has a primary medical history of sigmoid adenocarcinoma, HTN, osteoarthritis, COPD. He and his state that he presented to his PCPs office approximately 4 weeks ago with abdominal pain. At that time was treated for a diverticular abscess with oral antibiotics and discharged home. He continued to have worsening abdominal pain and presented to the emergency department at which time he was admitted to the medical surgical floor for treatment of diverticular abscess. General surgery was consulted at that time, Dr. Baptiste, and ultimately patient was discharged home on oral antibiotics. During admission CEA was obtained and was found to be significantly elevated, patient followed up with Dr. Baptiste in the office who recommended a sigmoidoscopy for further evaluation. Patient underwent procedure on 09/23/2025 which revealed a circumferential mass around 27 cm, multiple biopsies were obtained at that time. Pathology results came back yesterday showing invasive, moderately differentiated colonic adenocarcinoma. Patient then today followed up with Dr. Farris at which time patient endorsed feeling unwell. Patient stated he has been running fevers daily since discharge from the hospital, Tmax 102. He has had difficulty eating and drinking, and has lost weight. Complains of right lower quadrant abdominal discomfort that is not well-controlled with Tylenol or OTC pain medication. [facility] Disclaimer: The information contained in this section may have been updated after the иван turner was seen, as this information can be updated by other users. Medical History (Updated 09/30/25 @ 15:50 by Linda Medina APRN) Leukocytosis PTSD (post-traumatic stress disorder) Cataract Glaucoma Hypertension Surgical History History of cataract surgery Hx laparoscopic cholecystectomy History of colonoscopy with polypectomy History of amputation of toe History of ankle surgery History of knee surgery History of cardiac cath Family History Father Cancer Other Family history of cancer Family history of heart disease Social History Smoking Status: Never smoker smoking status stop date: 2006 how long ago did patient quit smokin second hand exposure: Yes (daily) alcohol intake: never substance use type: denies use current occupational status: retired Travel in the last 8 weeks?: None household members: spouse housing: house Have you lived/traveled outside US in past 30 days?: No Contact w/someone who lives/traveled outside US past 30 days?: No Exposure to someone with infectious disease in past 14 days?: No Do you have a fever (greater than 100.4 F or 38 C)?: No Have you tested positive for COVID-19?: No Exposed to someone with COVID-19 in past 14 days?: No Do you have a sore throat?: No Do you have a cough?: No Do you have any weakness?: No Do you have any diarrhea?: No Are you experiencing any unusual bleeding?: No Do you have any muscle aches/pain?: No Do you have any abdominal pain?: No Are you experiencing loss of taste or smell?: No Other Medical History Have you received the Flu Vaccine for this season: No Have you received the Pneumonia Vaccine: No Review of Systems Constitutional Constitutional: Reports chills, Reports fatigue, Reports fever(s), Reports poor appetite, Reports lethargy and Reports weakness *Cardiovascular Cardiovascular: Denies chest pain and Denies dyspnea *Respiratory Respiratory: Denies chest congestion, Denies cough and Denies dyspnea *Gastrointestinal Gastrointestinal: Reports abdominal pain, Reports nausea and Reports vomiting *Genitourinary Genitourinary: Denies difficulty urinating and Denies dysuria *Neurologic Neurologic: Reports weakness Endocrine Endocrine: Reports fatigue Meds Home Medications and Allergies Home Medications ?Medication ?Instructions ?Recorded ?Confirmed ?Type ipratropium 0.5 mg-albuterol 3 mg 3 ml inhalation Q4-6 H PRN 11/19/24 09/30/25 Rx (2.5 mg base)/3 mL nebulization shortness of breath or wheezing soln #90 mL epinephrine 0.3 mg/0.3 mL 0.3 mg (0.3 mL) IM Q5-15M SD N 12/25/24 09/30/25 Rx injection, auto-injector (EpiPen anaphylaxis #2 ea 2-Santos) brimonidine 0.1 % eye drops 1 drp ophthalmic (eye) BID 09/01/25 09/30/25 History albuterol 90 mcg-budesonide 80 2 inh inhalation Q4HP P RN 09/05/25 09/30/25 History mcg/actuation HFA aerosol inhaler shortness of breath or wheezing (Airsupra) eszopiclone 2 mg tablet 2 mg PO HSP PRN Insomnia 02/2309/30/25 History fluticasone fur. 100 mcg-umeclid 1 inh inhalation KARRI Y 09/05/25 09/30/25 History 62.5 mcg-vilant 25 mcg inhalat.powder (Trelegy Ellipta) losartan 100 mg tablet 100 mg PO DAILY 09/30/25 History losartan 100 mg tablet 100 mg PO DAILY 09/30/25 History New Prescriptions to Start Prescriptions: Allergies Allergy/AdvReac Type Severity Reaction Status Date / Time hornet venom Allergy Anaphylaxis Verified 09/30/25 13:49 Exam Constitutional Constitutional: mild distress, obese and cooperative *Routine HEENT Exam Head: Present normocephalic and atraumatic Eye: Present EOMI, PERRL and normal accommodation ENT: Present mucous membranes moist *Routine Neck Exam Neck: Present supple, full ROM and trachea midline *Routine Respiratory Exam Respiratory: Present CTA bilaterally, normal respiratory effort, able to speak in complete sentences and symmetric chest movement *Routine Cardiovascular Exam Cardiovascular: Present RRR, Normal S1 and Normal S2 *Routine Abdominal Exam Abdominal: Present soft, normoactive bowel sounds and tenderness (Right lower quadrant); Absent distended *Routine Rectal Exam Rectal:: deferred *Routine Genitalia Exam Genitalia:: deferred *Routine Extremities Exam Extremities: Present full ROM, pulses intact and normal capillary refill; Absent cyanosis, clubbing or edema Routine Back/Spine/Pelvis Exam Back/Spine: Present full ROM *Routine Skin Exam Skin: Present intact, dry, warm and normal turgor; Absent rash *Routine Neurological Exam Neurological: Present alert, oriented X3, moving all extremities and normal sp eech Routine Psychiatric Exam Psychiatric: Present normal affect, cooperative, good insight and good judgment Assessment and Plan *Assessment and plan (1) SIRS (systemic inflammatory response syndrome): Status: Acute Category: Medical Code(s): R65.10 - Systemic inflammatory response syndrome (SIRS) of non-infectious origin without acute organ dysfunction (2) Leukocytosis: Status: Acute Qualifiers: Leukocytosis type: unspecified Qualified Code(s): D72.829 - Elevated white blood cell count, unspecified Category: Medical Code(s): D72.829 - Elevated white blood cell count, unspecified (3) Cancer of sigmoid colon: Status: Acute Category: Medical Code(s): C18.7 - Malignant neoplasm of sigmoid colon (4) COPD (chronic obstructive pulmonary disease): Status: Acute Category: Medical Code(s): J44.9 - Chronic obstructive pulmonary disease, unspecified (5) Essential hypertension: Status: Acute Category: Medical Code(s): I10 - Essential (primary) hypertension Plan Mr. Mooney is a 70-year-old male who saw his oncologist today with continued complaints of abdominal pain, daily fevers, poor p.o. intake. Dr. Farris, oncology, consulted hospital medicine for direct admission to our service. I agreed to admit the patient, plan of care as follows: #Abdominal pain #SIRS: tachycardia, fever, leukocytosis #Sigmoid adenocarcinoma ?Patient admitted to the medical surgical floor for suspected infection, of unknown origin. Patient recently admitted and treated for diverticular abscess, found to have sigmoid adenocarcinoma. Was being seen by oncologist for initial visit today when he reported daily fevers, poor p.o. intake, and abdominal pain. Patient was directly admitted to the hospital at this time. Patient continues to complain of right lower quadrant pain. ?CBC, CMP, magnesium, blood cultures x 2, CRP obtained upon admission. WBC elevated at 17.3, empiric antibiotics started Zosyn 3.375 and vancomycin. Additionally given sepsis bolus 30 mL/kg. After discussion with general surgery, Dr. Galarza, recommendations to transition from Zosyn to Invanz due to previously receiving Zosyn and recurrent possible infection. Invanz 1 g every 24 hours ordered. ?Patient taken for abdomen/pelvis CT with contrast and chest CT with contrast due to recent cancer diagnosis and possible metastasis. Scans pending. Patient denies chest pain, shortness of breath, diarrhea, urinary symptoms. ?General Surgery, Dr. Galarza consulted for further evaluation and recommendations for patient. ?CBC, CMP, magnesium ordered for the a.m. #DESHAUN: Patient creatinine elevated at 1.5, likely due to decreased oral intake. Patient receiving sepsis bolus, rechecking labs in the AM. #Hypertension: continue losartan 100 mg daily. #COPD: Continue Trelegy inhaler, DuoNebs every 4 hours as needed. Patient stable on room air, O2 saturation greater than 90%. Full code N.p.o. Ambulate as tolerated VTE?Lovenox
[2025-09-30 14:48] VITALS: BP 141/90; PULSE 100; RESP 19; TEMP 36.4; O2SAT 97
--- NOTE | 2025-09-30 14:51 | CT_ITS ---
FINAL REPORT TECHNIQUE: Axial CT images of the abdomen were obtained with IV contrast only. Coronal reformatted images were also obtained. This study was performed with techniques to keep radiation doses as low as reasonably achievable (ALARA). Individualized dose reduction techniques using automated exposure control or adjustment of mA and/or kV according to the patient''s size were employed. CLINICAL HISTORY: sigmoid adenocarcinoma, fevers, abdominal pain COMPARISON: 09/04/2025 FINDINGS: LIVER: Small hypodense liver lesions are unchanged and likely cysts. GALLBLADDER/BILIARY SYSTEM: Gallbladder is absent. No biliary dilatation. SPLEEN: Unremarkable. PANCREAS: Unremarkable. ADRENALS: Right adrenal gland is unremarkable. Small left adrenal nodule is stable. KIDNEYS/URETERS/BLADDER: No hydronephrosis. Bilateral hypodense renal lesions are unchanged and favored to represent cysts. Urinary bladder unremarkable. GI TRACT: No small bowel obstruction. Normal appendix. Worsening focal wall thickening of the distal sigmoid colon likely represents the known neoplasm. There is a peripherally enhancing collection anterior to the focal sigmoid thickening measuring 9.7 x 5.9 cm on axial images, increased since the prior exam. This collection extends into the inferior pole of the right rectus muscle. PELVIC ORGANS: Prostate unremarkable. LYMPH NODES/RETROPERITONEUM/MESENTERY: No lymphadenopathy. No abdominal aortic aneurysm. ABDOMINAL WALL: Bilateral fat containing inguinal hernias.. FREE FLUID: No ascites. BONES: No acute osseous abnormality. IMPRESSION: Sigmoid colon mass has possibly worsened since prior exam, presumably this is the known adenocarcinoma. Interval increase in size of the irregular, peripherally enhancing collection along the anterior aspect of the mass most concerning for abscess related to a perforation of the mass. Abscess involves the anterior abdominal wall as above. Reviewed, Interpreted and Dictated by Tabitha Connell MD Transcribed by Aruna Antonio Authenticated and [facility]
--- NOTE | 2025-09-30 14:51 | CT_ITS ---
FINAL REPORT TECHNIQUE: Thin section axial images were obtained from the thoracic inlet through the upper abdomen after intravenous contrast injection. Reconstruction images were obtained from the axial data. Exam was performed using dose reduction technique. CLINICAL HISTORY: sigmoid colon adenocarcinoma, recurrent fevers COMPARISON: None FINDINGS: There are small bilateral hypodense thyroid nodules. There is no mediastinal, hilar, or axillary lymphadenopathy. There is no pleural or pericardial effusion. The lungs are clear. No suspicious nodules. No evidence of consolidation. Mild emphysematous changes are noted. No acute osseous abnormality. IMPRESSION: No evidence metastatic disease in the chest. No acute intrathoracic abnormality. Reviewed, Interpreted and Dictated by Tabitha Connell MD Transcribed by Aruna Antonio Authenticated and . [facility]
--- NOTE | 2025-09-30 15:09 | EXP.SURG.CON ---
History of Present Illness *Admission Date: 09/30/25 *Reason for visit:: Sigmoid adenocarcinoma, fevers, abdominal pain *History of present illness: Patient is a 70-year-old male. He had been seen by his primary care provider on 09/02/2025 with symptoms of pelvic pain and pressure with associated urinary symptoms and rectal pressure. He had some tenderness in the lower pelvis and had a CT scan which revealed findings consistent with acute diverticulitis. Patient was given ciprofloxacin and metronidazole to be managed as an outpatient. However, he had worsening abdominal pain with fevers and therefore presented to the emergency department a couple of days later on 09/04/25. At the time of his presentation in the emergency department he underwent repeat CT scan which revealed wall thickening and inflammatory appearance of the mid sigmoid colon which was felt to be consistent with acute diverticulitis with adjacent localized ill-defined fluid collection measuring approximately 3.6 cm with no free air. He was admitted for inpatient management at that time due to his failure of outpatient management. He was able to be managed nonoperatively at that time and was discharged on 09/06/2025 on oral antibiotics. During his inpatient stay consultation was obtained with general surgery (Dr. Baptiste). He saw him back as an outpatient. Patient did undergo CEA level ordered by the hospitalist service and this was markedly elevated at 92. Therefore the possibility of colon cancer with concomitant microperforation as opposed to true diverticulitis was highly suspicious. This prompted Dr. Baptiste to perform more expeditious gentle flexible sigmoidoscopy for definitive diagnosis which was done on 09/23/2025. He was found to have circumferential mass at approximately 27 cm which was biopsied. Pathology reveals invasive moderately differentiated colonic adenocarcinoma. Preparations were being made for possible surgery. He saw oncology as an outpatient today and notes ongoing abdominal discomfort, fevers, difficulty eating and losing weight. He was therefore admitted for inpatient management to the hospitalist service. . [facility] Disclaimer: The information contained in this section may have been updated after the patient was seen, as this information can be updated by other users. Medical History (Updated 09/30/25 @ 15:50 by Linda Medina APRN) Leukocytosis PTSD (post-traumatic stress disorder) Cataract Glaucoma Hypertension Surgical History History of cataract surgery Hx laparoscopic cholecystectomy History of colonoscopy with polypectomy History of amputation of toe History of ankle surgery History of knee surgery History of cardiac cath Family History Father Cancer Other Family history of cancer Family history of heart disease Social History Smoking Status: Never smoker smoking status stop date: 2006 how long ago did patient quit smokin second hand exposure: Yes (daily) alcohol intake: never substance use type: denies use current occupational status: retired Travel in the last 8 weeks?: None household members: spouse housing: house Have you lived/traveled outside US in past 30 days?: No Contact w/someone who lives/traveled outside US past 30 days?: No Exposure to someone with infectious disease in past 14 days?: No Do you have a fever (greater than 100.4 F or 38 C)?: No Have you tested positive for COVID-19?: No Exposed to someone with COVID-19 in past 14 days?: No Do you have a sore throat?: No Do you have a cough?: No Do you have any weakness?: No Do you have any diarrhea?: No Are you experiencing any unusual bleeding?: No Do you have any muscle aches/pain?: No Do you have any abdominal pain?: No Are you experiencing loss of taste or smell?: No Meds Home Medications and Allergies Home Medications ?Medication ?Instructions ?Recorded ?Confirmed ?Type ipratropium 0.5 mg-albuterol 3 mg 3 ml inhalation Q4-6H PRN 11/19/24 09/30/25 Rx (2.5 mg base)/3 mL nebulization shortness of breath or wheezing soln #90 mL epinephrine 0.3 mg/0.3 mL 0.3 mg (0.3 mL) IM Q5-15M PRN 12/25/24 09/30/25 Rx injection, auto-injector (EpiPen anaphylaxis #2 ea 2-Santos) brimonidine 0.1 % eye drops 1 drp ophthalmic (eye) BID 09/01/25 09/30/25 History albuterol 90 mcg-budesonide 80 2 inh inhalation Q4HP PRN 09/05/25 09/30/25 History mcg/actuation HFA aerosol inhaler shortness of breath or wheezing (Airsupra) eszopiclone 2 mg tablet 2 mg PO HSP PRN Insomnia 09/05/25 09/30/25 History fluticasone fur. 100 mcg-umeclid 1 inh inhalation DAILY 09/05/25 09/30/25 History 62.5 mcg-vilant 25 mcg inhalat.powder (Trelegy Ellipta) losartan 100 mg tablet 100 mg PO DAILY 09/30/25 09/30/25 History losartan 100 mg tablet 100 mg PO DAILY 09/30/25 09/30/25 History New Prescriptions to Start Prescriptions: Allergies Allergy/AdvReac Type Severity Reaction Status Date / Time hornet venom Allergy Anaphylaxis Verified 09/30/25 13:49 Exam (Inpt) Comments:: Tender bilateral lower quadrant pain. Results Labs 10/01/25 06:12 10/01/25 06:12 Assessment and Plan *Assessment and plan (1) Cancer of sigmoid colon: Status: Acute Category: Medical Code(s): C18.7 - Malignant neoplasm of sigmoid colon Plan Admit. Initiate IV antibiotics. Imaging for assessment of interval change.
[2025-09-30 15:13] VITALS: BMI 32.1
--- NOTE | 2025-09-30 15:23 | P.CONPHA_ITS ---
Pharmacy Consult Date: 09/30/25 Time: 15:23 Referring provider: LUIS ARMANDO LONDONO APRN Reason for Consult:: VANCOMYCIN DOSING Allergies Allergy/AdvReac Type Severity Reaction Status Date / Time hornet venom Allergy Anaphylaxis Verified 09/30/25 13:49 Home Medications ?Medication ?Instructions ?Recorded ?Confirmed ?Type ipratropium 0.5 mg-albuterol 3 mg 3 ml inhalation Q4-6 H PRN 11/19/24 09/30/25 Rx (2.5 mg base)/3 mL nebulization shortness of breath or wheezing soln #90 mL epinephrine 0.3 mg/0.3 mL 0.3 mg (0.3 mL) IM Q5-15M NH N 12/25/24 09/30/25 Rx injection, auto-injector (EpiPen anaphylaxis #2 ea 2-Santos) brimonidine 0.1 % eye drops 1 drp ophthalmic (eye) BID 09/01/25 09/30/25 History albuterol 90 mcg-budesonide 80 2 inh inhalation Q4HP P RN 09/05/25 09/30/25 History mcg/actuation HFA aerosol inhaler shortness of breath or wheezing (Airsupra) eszopiclone 2 mg tablet 2 mg PO HSP PRN Insomnia 02/2309/30/25 History fluticasone fur. 100 mcg-umeclid 1 inh inhalation KARRI Y 09/05/25 09/30/25 History 62.5 mcg-vilant 25 mcg inhalat.powder (Trelegy Ellipta) New Prescriptions to Start Prescriptions: Height: 1.85 m Weight: 110.336 kg Laboratory Results:: l Medical History: Medical History (Updated 09/30/25 @ 14:35 by Rob Farris MD) Leukocytosis PTSD (post-traumatic stress disorder) Cataract Glaucoma Hypertension Assessment and Plan Assessment and plan all Dx Assessment and Plan for all problems:: Pharmacokinetic dosing service Objective: Patient: Floor: Age: 70 yo Serum creatinine: 1.2 mg/dL Height: 72.8 Inches Weight (kg): 112 Assessment: IBW (kg): 79.44 Dosing wt(kg): 112 Estimated Creatinine clearance (ml/min): 66.2 CRCL method: Cockcroft and Gault using ibw(default). Drug selected: Vancomycin Loading dose (mg): 0 Vd (liters): 89.6 (factor used: 0.8 L/kg) Chauncey (hr-1): 0.059 Half life (hrs): 11.75 Recommended dose: 1500 mg Interval: 12 hrs Infusion time (hrs): 2.0 Predicted peak (mcg/mL): 31.1 Predicted trough (mcg/mL): 17.24 Total body weight is being used for vancomycin dosing. Renal function is stable [ ] /unstable [ ] Recommendations: GIVE 1X DOSE OF VANCOMYCIN 1750 MG. THEN give Vancomycin 1500 mg q 12 hrs with an expected Cpeak of 31.1 mcg/ml and an expected Ctrough of 17.24 mcg/ml ----Vanco only - ignore for aminoglycosides----- CLvanco= 5.29 L/hr AUC 0-24 /CEASAR Data: CEASAR 0.5 mcg/mL: AUC/CEASAR: 1134.2 CEASAR 1.0 mcg/mL: AUC/CEASAR: 567.1 --------- CEASAR 1.5 mcg/mL: AUC/CEASAR: 378.1 CEASAR 2.0 mcg/mL: AUC/CEASAR: 283.6
[2025-09-30] MEDS: PIPERACILLIN/TAZO 3.375 GM in 0.9 % SODIUM CHLORIDE 50 ML IV (15:29)
[2025-09-30] MEDS: 0.9 % SODIUM CHLORIDE 1000ML 1,000 ML 999 ML IV (15:30)
[2025-09-30 15:35] LABS: Hematocrit 38.7 % (42.0-52.0); Hemoglobin 12.1 g/dL (14.1-18.0); Immature Granulocytes % 0.8 %; Mean Corpuscular HGB Conc 31.3 g/dL (31.8-35.4); Mean Corpuscular Hemoglobin 27.6 pg (27.0-31.2); Mean Corpuscular Volume 88.4 fl (80-94); Nucleated Red Blood Cells % 0 %; Platelet Count 397 K/mm3 (142-424); Red Blood Count 4.38 M/mm3 (4.60-6.20); Red Cell Distribution Width-SD 43.1 fL; White Blood Count 17.3 K/mm3 (4.8-10.8)
[2025-09-30 15:42] LABS: Albumin Level 4.0 g/dl (3.5-5.0); Chloride 101 mmol/L (98-107); Sodium 135 mmol/L (136-145)
[2025-09-30 15:43] LABS: INR 1.18 (0.9-1.1); Potassium 3.9 mmoL/L (3.5-5.1); Prothrombin Time 12.9 seconds (10.1-12.5)
[2025-09-30 15:45] LABS: Alanine Aminotransferase 23 U/L (12-78); Albumin/Globulin Ratio 1.1 (1.1-1.8); Alkaline Phosphatase 43 U/L (38-126); Anion Gap 12.9 mEq/L (5-15); Aspartate Amino Transferase 25 U/L (17-59); Bilirubin,Total 0.6 mg/dl (0.2-1.3); Blood Urea Nitrogen 18 mg/dl (9-20); Calcium 10.2 mg/dl (8.4-10.2); Carbon Dioxide 25 mmol/L (22.0-30.0); Creatinine Clearance Estimated 74 mL/min (50-200); Creatinine,Serum 1.50 mg/dl (0.66-1.25); Estimated Glomerular Filt Rate 47 ml/min (>60); GFR (African American) 56 ML/MIN (>60); Globulin 3.7 g/dL (1.3-3.2); Glucose 111 mg/dl (74-100); Total Protein,Serum 7.7 g/dl (6.3-8.2)
[2025-09-30 15:49] LABS: C-Reactive Protein 296.1 mg/L (0-4)
--- NOTE | 2025-09-30 16:02 | PC.NURSE ---
Dr Galarza at bedside
[2025-09-30] MEDS: SODIUM CHLORIDE 0.9% 10ML SYR (RAD ONLY) 10 ML IV (16:10)
[2025-09-30] MEDS: IOPAMIDOL-370 (76%);100ML BOTTLE 75 ML IV (16:11)
[2025-09-30 16:13] LABS: Adenovirus,PCR Not Detected (NotDetected); Chlamydophila Pneumoniae, PCR Not Detected (NotDetected); Coronavirus 19, PCR Not Detected (NotDetected); Coronovirus HKU1,PCR Not Detected (NotDetected); Influenza A, PCR Not Detected (NotDetected); Influenza AH1, 2009 Not Detected (NotDetected); Influenza AH1, PCR Not Detected (NotDetected); Influenza AH3,PCR Not Detected (NotDetected); Influenza B, PCR Not Detected (NotDetected); Mycoplasma Pneumoniae, PCR Not Detected (NotDetected); Parainfluenza 1, PCR Not Detected (NotDetected); Parainfluenza 2, PCR Not Detected (NotDetected); Parainfluenza 3, PCR Not Detected (NotDetected); Parainfluenza 4, PCR Not Detected (NotDetected)
[2025-09-30 16:32] LABS: Total Cells Counted 100
[2025-09-30] MEDS: LACTATED RINGERS 1000ML 2,400 ML 1200 ML IV (16:32)
[2025-09-30 16:34] LABS: RBC Morphology Normal
[2025-09-30] MEDS: VANCOMYCIN/WATER FOR INJ (PEG) 1.75 GM/350 ML PIGGYBACK IV (17:17)
[2025-09-30] MEDS: HYDROCODONE/APAP 5/325 MG TABLET 1 TAB PO ×2 (17:34→21:49)
--- NOTE | 2025-09-30 17:35 | PC.NURSE ---
Hydrocodone 5mg/Acetaminophen 325 mg tablet would not scan. Order and medication confirmed by Vu Staton RN
--- NOTE | 2025-09-30 17:51 | PC.NURSE ---
Patient direct admit. VSS. On room air. Fluid boluses and antibiotics admitted per orders. Up with SBA to BR for voids. Avalon x 1 for abdominal pain with improvement of symptoms. SCD's to be applied at bedtime per patient request. Minimal oral intake but denies nausea. Patient states understanding of radiology tests, surgical consults and antibiotic plan.
[2025-09-30 20:00] VITALS: BP 120/67; PULSE 73; RESP 17; TEMP 36.8; O2SAT 94
[2025-09-30] MEDS: ERTAPENEM SODIUM 1 GM in 0.9 % SODIUM CHLORIDE 50 ML IV (20:14)
[2025-10-01] VITALS: BP 113/54; PULSE 74; RESP 16; TEMP 36.8; O2SAT 95
--- NOTE | 2025-10-01 01:15 | PC.NURSE ---
Pt AOx4. VSS. Had some abdominal pain earlier in shift that was treated per MAR. Pt reported some relief after receiving medication. Tolerating room air. Currently resting in bed with eyes closed. Respirations even and unlabored. Bed is low, locked, and call light is in reach.
[2025-10-01 04:00] VITALS: BP 102/41; PULSE 96; RESP 18; TEMP 36.8; O2SAT 97; BMI 32.2
[2025-10-01] MEDS: HYDROCODONE/APAP 5/325 MG TABLET 1 TAB PO (04:26)
[2025-10-01] MEDS: FLUTICASONE/UMECLIDIN/VILANTER 100/62.5/25MCG INHALER 1 PUFF IH (06:19)
[2025-10-01 06:25] LABS: Hematocrit 32.6 % (42.0-52.0); Immature Granulocytes % 0.4 %; Mean Corpuscular HGB Conc 30.4 g/dL (31.8-35.4); Mean Corpuscular Hemoglobin 26.5 pg (27.0-31.2); Mean Corpuscular Volume 87.4 fl (80-94); Nucleated Red Blood Cells % 0 %; Platelet Count 316 K/mm3 (142-424); Red Blood Count 3.73 M/mm3 (4.60-6.20); Red Cell Distribution Width-SD 41.9 fL; White Blood Count 12.1 K/mm3 (4.8-10.8)
[2025-10-01 06:30] LABS: Hemoglobin 10.1 g/dL (14.1-18.0)
[2025-10-01 06:37] LABS: Albumin Level 3.0 g/dl (3.5-5.0); Chloride 107 mmol/L (98-107); Sodium 136 mmol/L (136-145)
[2025-10-01 06:38] LABS: Potassium 3.7 mmoL/L (3.5-5.1)
[2025-10-01 06:40] LABS: Alanine Aminotransferase 16 U/L (12-78); Albumin/Globulin Ratio 1.1 (1.1-1.8); Anion Gap 10.7 mEq/L (5-15); Aspartate Amino Transferase 23 U/L (17-59); Blood Urea Nitrogen 13 mg/dl (9-20); Carbon Dioxide 22 mmol/L (22.0-30.0); Creatinine Clearance Estimated 110 mL/min (50-200); Creatinine,Serum 1.00 mg/dl (0.66-1.25); Estimated Glomerular Filt Rate 74 ml/min (>60); GFR (African American) 90 ML/MIN (>60); Globulin 2.8 g/dL (1.3-3.2); Total Protein,Serum 5.8 g/dl (6.3-8.2)
[2025-10-01 06:41] LABS: Alkaline Phosphatase 39 U/L (38-126); Bilirubin,Total 0.4 mg/dl (0.2-1.3); Calcium 9.3 mg/dl (8.4-10.2); Glucose 98 mg/dl (74-100); Magnesium 1.9 mg/dl (1.6-2.3)
--- NOTE | 2025-10-01 07:49 | HMH.PHAINT1 ---
Pharmacy Intervention Comments: HOME MEDICATION LIST VERIFIED USING LIST FROM OUTPATIENT PHARMACY
[2025-10-01 08:00] VITALS: BP 124/74; PULSE 87; RESP 18; TEMP 36.5; O2SAT 94
--- NOTE | 2025-10-01 08:45 | HMH.PHAAMS2 ---
- Antimicrobial Stewardship Review culture & sensitivity review Stewardship interventions: culture & sensitivity review, reviewed - no change Comments: BLOOD CX PENDING, PATIENT ON INVANZ AND VANCOMYCIN FOR SUSPECTED DIVERTICULAR ABCESS
[2025-10-01] MEDS: IRBESARTAN 150MG TAB 150 MG PO (09:13)
[2025-10-01] MEDS: BRIMONIDINE 0.2% OPHTH SOLN 5ML BOTTLE OP (09:13)
[2025-10-01] MEDS: VANCOMYCIN HCL 2,000 MG in 0.9 % SODIUM CHLORIDE 250 ML 125 MG IV (09:22)
[2025-10-01] MEDS: MORPHINE 2MG/ML SYRINGE 2 MG IV (10:23)
--- NOTE | 2025-10-01 12:02 | P.DS_ITS ---
<Statement entered by Joon Aggarwal MD - 10/01/25 15:17> Rounded on patient after nurse practitioner. Personally examined and interviewed patient. Agree with exam findings and care plan as documented. General Admission date:: 09/30/25 HPI HPI HPI: Mr. oMoney is a 70-year-old male who presented to his oncologist office today for a outpatient appointment. He has a primary medical history of sigmoid adenocarcinoma, HTN, osteoarthritis, COPD. He and his state that he presented to his PCPs office approximately 4 weeks ago with abdominal pain. At that time was treated for a diverticular abscess with oral antibiotics and discharged home. He continued to have worsening abdominal pain and presented to the emergency department at which time he was admitted to the medical surgical floor for treatment of diverticular abscess. General surgery was consulted at that time, Dr. Baptiste, and ultimately patient was discharged home on oral antibiotics. During admission CEA was obtained and was found to be significantly elevated, patient followed up with Dr. Baptiste in the office who recommended a sigmoidoscopy for further evaluation. Patient underwent procedure on 09/23/2025 which revealed a circumferential mass around 27 cm, multiple biopsies were obtained at that time. Pathology results came back yesterday showing invasive, moderately differentiated colonic adenocarcinoma. Patient then today followed up with Dr. Farris at which time patient endorsed feeling unwell. Patient stated he has been running fevers daily since discharge from the hospital, Tmax 102. He has had difficulty eating and drinking, and has lost weight. Complains of right lower quadrant abdominal discomfort that is not well-controlled with Tylenol or OTC pain medication. Hospital Course Hospital Course Hospital Course: Mr. Mooney is a 70-year-old male who saw Dr. Farris, oncology, for his initial appointment yesterday due to recent diagnosis of sigmoid adenocarcinoma. During that appointment he had complaints of abdominal pain, daily fevers, poor p.o. intake. Patient was recently hospitalized and admitted to our service for diverticular abscess, treated with antibiotics. At that time a CEA level was obtained and was found to be extremely high. Patient was set up for outpatient sigmoidoscopy with general surgery, biopsies were obtained and pathology results showed invasive sigmoid adenocarcinoma. At this time he was referred to oncology for further evaluation. Dr. Farris consulted hospital medicine for dir ect admission due to patient's status, I agreed to admit the patient. Hospital course was as follows: #Abdominal pain #Sepsis due to sigmoid colon abscess #Sigmoid adenocarcinoma #Sigmoid abscess of adenocarcinoma measuring 9.7 x 5.9 cm extending into the inferior pole of the right rectus muscle ?Patient admitted to the medical surgical floor for suspected infection, parish patel of unknown origin. Significant workup was obtained after admission as patient was meeting sepsis criteria. Tachycardic, febrile, leukocytosis noted on admission. Patient received sepsis bolus of 3.3 L. Patient has not been febrile during admission but reports Tmax temperatures of 102 almost daily. Patient initiated on Zosyn and vancomycin IV, after discussion with general surgery transition from Zosyn to Invanz, continue vancomycin. ?Abdomen/pelvis CT and chest CT with contrast ordered upon admission. Patient's chest CTA without metastasis, abdomen/pelvis CTA significant for sigmoid colon mass worsened since prior exam, presumably this is the known adenocarcinoma. Interval increase in size of the irregular, peripheral enhancing collection along the anterior aspect of the mass most concerning for abscess related to a perforation of the mass. These findings were discussed with Dr. Galarza, general surgery who feels transfer to higher level of care is in the best interest of the patient. We unfortunately do not have interventional radiology services at this time or colorectal, and the patient likely will need both. ?I spoke with Dr. Ledezma (colorectal surgery) and Dr. Grayson (admitting services) who graciously have accepted the patient for transfer to their facility. Images were power shared to . I spoke with the patient and patient's spouse about the plan of care, both are in agreements for transfer for surgical services. ?Initial CBC showed leukocytosis 17.3, repeat trending down to 12.1. Patient was afebrile overnight, continues to have right lower quadrant pain. Patient receiving morphine 2 mg every 2 hours as needed for pain. Patient has remained hemodynamically stable. #Severe protein calorie malnutrition: Patient has lost approximately 27 pounds in 4 weeks. Endorses little to no p.o. intake due to abdominal pain. Patient is being transferred to the [facility] for further management of sigmoid adenocarcinoma with invasive abscess. #DESHAUN: Patient creatinine elevated at 1.5, likely due to decreased oral intake. Patient received sepsis bolus, repeat creatinine 1.0. #Hypertension: continue losartan 100 mg daily. #COPD: Continue Trelegy inhaler, DuoNebs every 4 hours as needed. Patient stable on room air, O2 saturation greater than 90%. Patient will be transferred via EMS to [facility] to the medical surgical floor with a colorectal consult. Total time spent on discharge 40 minutes in counseling, documentation, chart review, and direct care with patient. Exam Data for Last 24 hours Vital signs and Labs for Last 24 Hours: Temp Pulse Resp BP Pulse Ox O2 Del Method 97.7 F 87 18 124/74 94 L Room Air 10/01/25 08:00 10/01/25 08:00 10/01/25 08:00 10/01/25 08:00 10/01/25 08:00 10/01/25 11:00 Laboratory Results - last 24 hr 09/30/25 15:19: WBC 17.3 H, RBC 4.38 L, Hgb 12.1 L, Hct 38.7 L, MCV 88.4, MCH 27.6, MCHC 31.3 L, RDW 13.2, Plt Count 397, MPV 10.3, Neut % (Auto) 72.1, Lymph % (Auto) 16.0, [place] % (Auto) 9.3, Eos % (Auto) 1.4, Baso % (Auto) 0.4, Neut # (Auto) 12.5 H, Lymph # (Auto) 2.8, [place] # (Auto) 1.6 H, Eos # (Auto) 0.2, Baso # (Auto) 0.1, Total Counted 100, Neutrophils % (Manual) 59, Lymphocytes % (Manual) 25, Monocytes % (Manual) 14 H, Eosinophils % (Manual) 2, Platelet Estimate Normal, RBC Morphology Normal, PT 12.9 H, INR 1.18 H, Sodium 135 L, Potassium 3.9, Chloride 101, Carbon Dioxide 25, Anion Gap 12.9, BUN 18, Creatinine 1.50 H, Estimated Creat Clear 74, Estimated GFR 47 L, Est GFR ( Amer) 56 L, Glucose 111 H, Lactate 1.3, Calcium 10.2, Total Bilirubin 0.6, AST 25, ALT 23, Alkaline Phosphatase 43, C-Reactive Protein 296.1 H, Total Protein 7.7, Albumin 4.0, Globulin 3.7 H, Albumin/Globulin Ratio 1.1 09/30/25 16:00: Chlamy pneumoniae PCR Not detected, Adenovirus (PCR) Not detected, B. pertussis DNA (PCR) Not detected, Coronavirus OC43 (PCR) Not detected, Coronavirus HKU1 (PCR) Not detected, Coronavirus 229E (PCR) Not detected, SARS-CoV-2 (PCR) Not detected, Coronavirus NL63 (PCR) Not detected, Human Metapneumovir PCR Not detected, Influenza A (H1) PCR Not detected, Influ A (H1N1/09) PCR Not detected, Influenza A (H3) PCR Not detected, Influenza Type A (PCR) Not detected, Influenza Type B (PCR) Not detected, M. pneumoniae (PCR) Not detected, Parainfluenza 1 (PCR) Not detected, Parainfluenza 2 (PCR) Not detected, Parainfluenza 3 (PCR) Not detected, Parainfluenza 4 (PCR) Not detected, RSV (PCR) Not detected, Entero/Rhino (PCR) Not detected 10/01/25 06:12: WBC 12.1 H D, RBC 3.73 L, Hgb 10.1 L D, Hct 32.6 L, MCV 87.4, MCH 26.5 L, MCHC 30.4 L, RDW 13.2, Plt Count 316, MPV 9.7, Neut % (Auto) 77.5, Lymph % (Auto) 10.6, [place] % (Auto) 9.1, Eos % (Auto) 2.0, Baso % (Auto) 0.4, Neut # (Auto) 9.4 H, Lymph # (Auto) 1.3, [place] # (Auto) 1.1 H, Eos # (Auto) 0.2, Baso # (Auto) 0.1, Sodium 136, Potassium 3.7, Chloride 107, Carbon Dioxide 22, Anion Gap 10.7, BUN 13 D, Creatinine 1.00 D, Estimated Creat Clear 110, Estimated GFR 74, Est GFR ( Amer) 90 D, Glucose 98, Calcium 9.3, Magnesium 1.9, Total Bilirubin 0.4, AST 23, ALT 16 D, Alkaline Phosphatase 39, Total Protein 5.8 L, Albumin 3.0 L D, Globulin 2.8, Albumin/Globulin Ratio 1.1 I & O for Last 24 hours: Intake & Output 09/28/25 09/29/25 09/30/25 10/01/25 23:59 23:59 23:59 23:59 Intake Total 3850 / 3850 120 / 120 Output Total 0 / 0 0 / 0 Balance 3850 / 3850 120 / 120 Weight 110.336 kg 110.336 kg Constitutional Constitutional: mild distress, obese and cooperative *Routine HEENT Exam Head: Present normocephalic Eye: Present EOMI and PERRL ENT: Present mucous membranes moist *Routine Neck Exam Neck: Present supple; Absent lymphadenopathy *Routine Respiratory Exam Respiratory: Present CTA bilaterally and normal respiratory effort *Routine Cardiovascular Exam Cardiovascular: Present RRR *Routine Abdominal Exam Abdominal: Present soft and tenderness (Right lower quadrant); Absent distended *Routine Rectal Exam Patient deferred: visual exam *Routine Exam Patient deferred: penile exam *Routine Extremities Exam Extremities: Present full ROM; Absent cyanosis, clubbing or edema *Routine Skin Exam Skin: Present intact, dry and warm; Absent rash *Routine Neurological Exam Neurological: Present alert, oriented X3, vision grossly intact, hearing grossly intact and normal speech Results Data Completed and Pending Labs on day of discharge: Labs from last 24 hours 10/01/25 09/30/25 09/30/25 06:12 16:00 15:19 WBC 12.1 H D 17.3 H RBC 3.73 L 4.38 L Hgb 10.1 L D 12.1 L Hct 32.6 L 38.7 L MCV 87.4 88.4 MCH 26.5 L 27.6 MCHC 30.4 L 31.3 L RDW 13.2 13.2 Plt Count 316 397 MPV 9.7 10.3 Neut % (Auto) 77.5 72.1 Lymph % (Auto) 10.6 16.0 [place] % (Auto) 9.1 9.3 Eos % (Auto) 2.0 1.4 Baso % (Auto) 0.4 0.4 Neut # (Auto) 9.4 H 12.5 H Lymph # (Auto) 1.3 2.8 [place] # (Auto) 1.1 H 1.6 H Eos # (Auto) 0.2 0.2 Baso # (Auto) 0.1 0.1 Total Counted 100 Neutrophils % (Manual) 59 Lymphocytes % (Manual) 25 Monocytes % (Manual) 14 H Eosinophils % (Manual) 2 Platelet Estimate Normal RBC Morphology Normal PT 12.9 H INR 1.18 H Sodium 136 135 L Potassium 3.7 3.9 Chloride 107 101 Carbon Dioxide 22 25 Anion Gap 10.7 12.9 BUN 13 D 18 Creatinine 1.00 D 1.50 H Estimated Creat Clear 110 74 Estimated GFR 74 47 L Est GFR ( Amer) 90 D 56 L Glucose 98 111 H Lactate 1.3 Calcium 9.3 10.2 Magnesium 1.9 Total Bilirubin 0.4 0.6 AST 23 25 ALT 16 D 23 Alkaline Phosphatase 39 43 C-Reactive Protein 296.1 H Total Protein 5.8 L 7.7 Albumin 3.0 L D 4.0 Globulin 2.8 3.7 H Albumin/Globulin Ratio 1.1 1.1 Chlamy pneumoniae PCR Not detected Adenovirus (PCR) Not detected B. pertussis DNA (PCR) Not detected Coronavirus OC43 (PCR) Not detected Coronavirus HKU1 (PCR) Not detected Coronavirus 229E (PCR) Not detected SARS-CoV-2 (PCR) Not detected Coronavirus NL63 (PCR) Not detected Human Metapneumovir PCR Not detected Influenza A (H1) PCR Not detected Influ A (H1N1/09) PCR Not detected Influenza A (H3) PCR Not detected Influenza Type A (PCR) Not detected Influenza Type B (PCR) Not detected M. pneumoniae (PCR) Not detected Parainfluenza 1 (PCR) Not detected Parainfluenza 2 (PCR) Not detected Parainfluenza 3 (PCR) Not detected Parainfluenza 4 (PCR) Not detected RSV (PCR) Not detected Entero/Rhino (PCR) Not detected DS: Diagnosis Discharge Diagnosis (1) Cancer of sigmoid colon: Status: Acute Code(s): C18.7 - Malignant neoplasm of sigmoid colon (2) Abscess of sigmoid colon: Status: Acute Code(s): K63.0 - Abscess of intestine (3) Adenocarcinoma of sigmoid colon: Status: Acute Code(s): C18.7 - Malignant neoplasm of sigmoid colon (4) COPD (chronic obstructive pulmonary disease): Status: Acute Code(s): J44.9 - Chronic obstructive pulmonary disease, unspecified (5) Leukocytosis: Status: Acute Code(s): D72.829 - Elevated white blood cell count, unspecified Qualifiers: Leukocytosis type: unspecified Qualified Code(s): D72.829 - Elevated white blood cell count, unspecified (6) Sepsis: Status: Acute Code(s): A41.9 - Sepsis, unspecified organism (7) Elevated CEA: Status: Acute Code(s): R97.0 - Elevated carcinoembryonic antigen [CEA] (8) DESHAUN (acute kidney injury): Status: Resolved Code(s): N17.9 - Acute kidney failure, unspecified (9) Severe protein-calorie malnutrition: Status: Acute Code(s): E43 - Unspecified severe protein-calorie malnutrition Meds Home Medications and Allergies Home Medications ?Medication ?Instructions ?Recorded ?Confirmed ?Type epinephrine 0.3 mg/0.3 mL 0.3 mg (0.3 mL) IM Q5-15M ID N 12/25/24 09/30/25 Rx injection, auto-injector (EpiPen anaphylaxis #2 ea 2-Santos) brimonidine 0.1 % eye drops 1 drp ophthalmic (eye) BID 09/01/25 09/30/25 History albuterol 90 mcg-budesonide 80 2 inh inhalation Q4HP P RN 09/05/25 09/30/25 History mcg/actuation HFA aerosol inhaler shortness of breath or wheezing (Airsupra) eszopiclone 2 mg tablet (Lunesta) 2 mg PO HSP PRN Inso mnia 09/05/25 09/30/25 History fluticasone fur. 100 mcg-umeclid 1 inh inhalation KARRI Y 09/05/25 09/30/25 History 62.5 mcg-vilant 25 mcg inhalat.powder (Trelegy Ellipta) losartan 100 mg tablet 100 mg PO DAILY 09/30/25 History Vancomycin HCl [Vancomycin 1000mg 125 mls/hr IV Q18H 1 Rx vial] 2,000 mg ertapenem 1 gram solution for 1 g IV Q24H #0 ea Rx injection New Prescriptions to Start Prescriptions: Vancomycin HCl [Vancomycin 1000mg vial] 2,000 mg 0.9 % Sodium Chloride [Sod Chlor 0.9% 250mL Bag] 250 ml 125 mls/hr IV Q18H Allergies Allergy/AdvReac Type Severity Reaction Status Date / Time hornet venom Allergy Anaphylaxis Verified 09/30/25 13:49 Discharge Plan Disposition Patient Disposition: Xfer Short-Term Hosp Condition: Fair Discharge Order Discharge Orders: Discharge Order (Routine); Ordered 10/01/25 Ordered By: Linda Medina Follow up Plan Follow up with: Laura Richardson APRN [Primary Care Provider, Medical] - Enter time for follow up Prescriptions/Medication Reconciliation: New ertapenem 1 gram Recon Soln 1 g IV Q24H Qty: 0 0RF Vancomycin HCl [Vancomycin 1000mg vial] 2000 MG 0.9 % Sodium Chloride [Sod Chlor 0.9% 250mL Bag] 250 ML 125 mls/hr IV Q18H Ordered By: Linda Medina APRN Last Taken: 10/01/25 09:22 125 mls/hr Continued brimonidine 0.1 % drops 1 drp ophthalmic (eye) BID epinephrine [EpiPen 2-Santos] 0.3 mg/0.3 mL auto-injector 0.3 mg IM Q5-15M PRN (Reason: anaphylaxis) Qty: 2 2RF Rx Instructions: do not exceed 3 doses per episode Trelegy Ellipta 100-62.5-25 mcg blister with device 1 inh inhalation DAILY eszopiclone [Lunesta] 2 mg tablet 2 mg PO HSP PRN (Reason: Insomnia) Airsupra 90-80 mcg/actuation HFA aerosol inhaler 2 inh inhalation Q4HP PRN (Reason: shortness of breath or wheezing) losartan 100 mg tablet 100 mg PO DAILY Problem Reconciliation Problems Reviewed?: Yes Patient Discharge Instructions ACTIVITY: Bed rest DIET: other Patient Instructions: DI for Chronic Obstructive Pulmonary Disease, DI for Sepsis in Adults, Stop Light COPD, Stop Light Infection Print Language: Romanian Providers Primary Care Provider: Laura Richardson Admit Provider: Joon Aggarwal Attending Provider: Joon Aggarwal
[2025-10-01 12:13] VITALS: BMI 32.2
[2025-10-01 12:17] VITALS: BP 133/80; PULSE 85; RESP 16; TEMP 36.7; O2SAT 94
--- NOTE | 2025-10-01 13:07 | P.PN_ITS ---
Subjective Narrative: Patient feels slightly better. Still with abdominal pain. Exam Data for Last 24 hours Vital signs and Labs for Last 24 Hours: Temp Pulse Resp BP Pulse Ox O2 Del Method 98.1 F 85 16 133/80 94 L Room Air 10/01/25 12:17 10/01/25 12:17 10/01/25 12:17 10/01/25 12:17 10/01/25 12:17 10/01/25 12:17 Laboratory Results - last 24 hr 09/30/25 15:19: WBC 17.3 H, RBC 4.38 L, Hgb 12.1 L, Hct 38.7 L, MCV 88.4, MCH 27.6, MCHC 31.3 L, RDW 13.2, Plt Count 397, MPV 10.3, Neut % (Auto) 72.1, Lymph % (Auto) 16.0, [place] % (Auto) 9.3, Eos % (Auto) 1.4, Baso % (Auto) 0.4, Neut # (Auto) 12.5 H, Lymph # (Auto) 2.8, [place] # (Auto) 1.6 H, Eos # (Auto) 0.2, Baso # (Auto) 0.1, Total Counted 100, Neutrophils % (Manual) 59, Lymphocytes % (Manual) 25, Monocytes % (Manual) 14 H, Eosinophils % (Manual) 2, Platelet Estimate Normal, RBC Morphology Normal, PT 12.9 H, INR 1.18 H, Sodium 135 L, Potassium 3.9, Chloride 101, Carbon Dioxide 25, Anion Gap 12.9, BUN 18, Creatinine 1.50 H, Estimated Creat Clear 74, Estimated GFR 47 L, Est GFR ( Amer) 56 L, Glucose 111 H, Lactate 1.3, Calcium 10.2, Total Bilirubin 0.6, AST 25, ALT 23, Alkaline Phosphatase 43, C-Reactive Protein 296.1 H, Total Protein 7.7, Albumin 4.0, Globulin 3.7 H, Albumin/Globulin Ratio 1.1 09/30/25 16:00: Chlamy pneumoniae PCR Not detected, Adenovirus (PCR) Not detected, B. pertussis DNA (PCR) Not detected, Coronavirus OC43 (PCR) Not detected, Coronavirus HKU1 (PCR) Not detected, Coronavirus 229E (PCR) Not detected, SARS-CoV-2 (PCR) Not detected, Coronavirus NL63 (PCR) Not detected, Human Metapneumovir PCR Not detected, Influenza A (H1) PCR Not detected, Influ A (H1N1/09) PCR Not detected, Influenza A (H3) PCR Not detected, Influenza Type A (PCR) Not detected, Influenza Type B (PCR) Not detected, M. pneumoniae (PCR) Not detected, Parainfluenza 1 (PCR) Not detected, Parainfluenza 2 (PCR) Not detected, Parainfluenza 3 (PCR) Not detected, Parainfluenza 4 (PCR) Not detected, RSV (PCR) Not detected, Entero/Rhino (PCR) Not detected 10/01/25 06:12: WBC 12.1 H D, RBC 3.73 L, Hgb 10.1 L D, Hct 32.6 L, MCV 87.4, MCH 26.5 L, MCHC 30.4 L, RDW 13.2, Plt Count 316, MPV 9.7, Neut % (Auto) 77.5, Lymph % (Auto) 10.6, [place] % (Auto) 9.1, Eos % (Auto) 2.0, Baso % (Auto) 0.4, Neut # (Auto) 9.4 H, Lymph # (Auto) 1.3, [place] # (Auto) 1.1 H, Eos # (Auto) 0.2, Baso # (Auto) 0.1, Sodium 136, Potassium 3.7, Chloride 107, Carbon Dioxide 22, Anion Gap 10.7, BUN 13 D, Creatinine 1.00 D, Estimated Creat Clear 110, Estimated GFR 74, Est GFR ( Amer) 90 D, Glucose 98, Calcium 9.3, Magnesium 1.9, Total Bilirubin 0.4, AST 23, ALT 16 D, Alkaline Phosphatase 39, Total Protein 5.8 L, Albumin 3.0 L D, Globulin 2.8, Albumin/Globulin Ratio 1.1 I & O for Last 24 hours: Intake & Output 09/29/25 09/30/25 10/01/25 10/02/25 11:59 11:59 11:59 11:59 Intake Total 4220 / 4220 Output Total 0 / 0 0 / 0 Balance 4220 / 4220 0 / 0 Weight 243 lb 3.988 oz 243 lb 3.988 oz Constitutional Constitutional: no acute distress Progress Note: A&P Assessment and plan (1) Cancer of sigmoid colon: Status: Acute (2) Abscess of sigmoid colon: Status: Acute (3) Adenocarcinoma of sigmoid colon: Status: Acute (4) COPD (chronic obstructive pulmonary disease): Status: Acute (5) Leukocytosis: Status: Acute (6) Sepsis: Status: Acute (7) Elevated CEA: Status: Acute (8) DESHAUN (acute kidney injury): Status: Resolved (9) Severe protein-calorie malnutrition: Status: Acute Assessment and Plan Assessment and Plan for All Diagnoses:: Review of the CT scan reveals complicated perforated colon cancer with large abscess involving anterior abdominal wall. This could require interventional radiology and he may have locally advanced colon cancer potentially even with regional carcinomatosis. For this reason I feel that transfer to higher level facility with immediate interventional radiology capabilities as well as colorectal surgery would be the best plan of action. This has been discussed with hospitalist service and patient has been accepted at [facility].
--- NOTE | 2025-10-01 14:45 | PC.NURSE ---
report called to [facility] and EMS
[2025-10-01] MEDS: MORPHINE 4MG/ML SYRINGE 4 MG IV (15:51)
[2025-10-01] MEDS: ONDANSETRON 4MG/2ML VIAL 4 MG IV (15:56)
== END 2025-10-01 15:59 | disposition short-term general hospital (02) | DRG 871 ==
PROVIDERS: Admitting Provider Internal Medicine Adolescent Medicine; PCP Nurse Practitioner Family; Visit Provider Internal Medicine Adolescent Medicine
DX: A41.9 Sepsis, unspecified organism (principal); E43 Unspecified severe protein-calorie malnutrition; C18.7 Malignant neoplasm of sigmoid colon; N17.9 Acute kidney failure, unspecified; K63.0 Abscess of intestine; J44.9 Chronic obstructive pulmonary disease, unspecified; I10 Essential (primary) hypertension; M19.90 Unspecified osteoarthritis, unspecified site; Z79.899 Other long term (current) drug therapy; Z88.8 Allergy status to other drugs, medicaments and biological substances
CPT/HCPCS: 0223U; 71260; 74177; 80053; 83605; 83735; 85007; 85025; 85610; 86140; 87040; 94640; J1335; J2270; J2405; J2543; J3373; J3375; J7030; J7050; J7120; Q9967